=== PATIENT | female | born 1940 | race Caucasian/White ===

== ENCOUNTER 2017-01-05 07:46 | Inpatient (IN) ==
[2017-01-05] MEDS ORDERED: DUONEB (A & A) INH ONE (08:35)
[2017-01-05] MEDS ORDERED: SOLU-MEDROL IV ONE (08:35)
--- NOTE | 2017-01-05 08:56 | PROVIDER DOCUMENTATION ---
HPI-Respiratory General - General Chief Complaint: General Adult Stated Complaint: sob Time Seen by Provider: 01/05/17 07:49 Source: patient, family Allergies/Adverse Reactions: Patient Allergies Allergy/AdvReac Type Severity Reaction Status Date / Time Egg Derived Allergy ANAPHYLAXIS Verified 01/05/17 08:39 Home Medications: Home Medication List Medication Instructions Recorded Confirmed Last Taken Type Amlodipine Besylate [Norvasc] 2.5 mg PO DAILY 01/05/17 01/05/17 01/04/17 12:00 History Gabapentin [Gabapentin] 300 mg PO DAILY 01/05/17 01/05/17 01/04/17 12:00 History Oxycodone HCl/Acetaminophen 1 each PO TID PRN PRN 01/05/17 01/05/17 01/04/17 12: 00 History [Percocet 10-325 mg Tablet] - History of Present Illness-Resp Nature of Presenting Problem: 76 y/o Lung Cancer, Nose Cancer, HTN and DM that presents to the ED with a chief compliant of SOB. Pt states symptoms worsened overnight. Reports an elevation in heart rate. Pt reports requiring 2L of Oxygen that she utilizes just a night. No aggravating or alleviating factors. No other symptoms. Quality of Pain: reports: none Onset/Duration: reports: 24 hours ago Timing: reports: intermittent Exposure: reports: smoke exposure Cough Quality/Degree: reports: no cough Episode Frequency: chronic episodes Current Respiratory Medication Therapy: Initiated see nurses note Modifying Factors: improves with: nothing Associated Symptoms: reports: heart racing, shortness of breath Review of Systems - Adult - REVIEW OF SYSTEMS - ADULT Constitutional: reports: no symptoms reported Eyes: reports: no symptoms reported Ears, Nose, Mouth & Throat: reports: no symptoms reported Cardiovascular: reports: palpitations Respiratory: reports: shortness of breath Gastrointestinal: reports: no symptoms reported Genitourinary: reports: no symptoms reported Musculoskeletal: reports: no symptoms reported Integumentary: reports: no symptoms reported Neurological: reports: no symptoms reported Psychiatric: reports: no symptoms reported Endocrine: reports: no symptoms reported Hematologic/Lymphatic: reports: no symptoms reported Allergic/Immunologic: reports: no symptoms reported Past History - Adult - PAST MEDICAL HISTORY-ADULT Review of Records: reports: Old Records Reviewed, Nursing Assessment Review, Medications Reviewed - IMMUNIZATION STATUS Childhood Immunizations: See Nurse Assessment Flu Vaccine: See Nurse Assessment - SOCIAL HISTORY Smoking: cigar, less than 1 pack/day Substance Use: none/never Alcohol Use Frequency: never Living Situation: family Physical Exam-General - PHYSICAL EXAM-ADULT Initial Vital Signs Reviewed: Yes - CONSTITUTIONAL General Appearance: appears well, alert, no apparent distress. negative: lethargic, slow to respond, obtunded - EYES Eyes: PERRL/EOMI, pink conjunctivae. negative: sclera injected, scleral icterus - HEAD, EARS, NOSE, MOUTH & THROAT HENMT: normocephalic/atraumatic, moist mucous membranes, normal ENT inspection. negative: pharyngeal erythema, tonsillar exudate - NECK Neck: non-tender, full range of motion, supple. negative: C-spine tenderness - RESPIRATORY Respiratory: decreased breath sounds. negative: crackles, rales, rhonchi, wheezing - CARDIOVASCULAR Cardiovascular: no murmur, tachycardia. negative: irregularly irregular - GASTROINTESTINAL (ABDOMEN) Abdominal Exam: normal bowel sounds, non tender, soft. negative: distended, guarding, rigid, rebound, tenderness - LYMPHATIC Lymphatic: no adenopathy - MUSCULOSKELETAL Back Exam: normal inspection, no CVA tenderness, no vertebral tenderness. negative: swelling, vertebral tenderness Extremity: normal range of motion, non-tender, normal gait. negative: swelling , tenderness - SKIN Integumentary: normal color, normal turgor, warm/dry. 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 negative: focal weakness, motor weakness, sensory deficit - PSYCHIATRIC Psych/Mental Status: normal mood/affect, normal thought content, normal thought process, oriented x 3 Progress - PLAN OF CARE/RESULTS Progress/Plan/Lab Results: Vital Signs - 8 hr 01/05/17 08:00 01/05/17 08:29 01/05/17 09:26 Temperature 97.6 F Pulse Rate 111 H 105 H 102 H Respiratory Rate 20 28 H 18 Blood Pressure 142/81 135/75 O2 Sat by Pulse Oximetry 96 98 98 01/05/17 10:37 01/05/17 11:00 01/05/17 14:17 Temperature Pulse Rate 102 H 103 H 95 H Respiratory Rate 12 18 26 H Blood Pressure 150/84 153/82 160/75 O2 Sat by Pulse Oximetry 98 99 98 01/05/17 14:18 Temperature Pulse Rate 101 H Respiratory Rate 18 Blood Pressure 160/75 O2 Sat by Pulse Oximetry 98 Laboratory Results - last 24 hr 01/05/17 01/05/17 01/05/17 09:12 09:12 09:12 WBC 9.27 RBC 4.28 Hgb 11.8 L Hct 37.4 MCV 87.4 MCH 27.6 MCHC 31.6 L RDW Std Deviation 14.5 Plt Count 387 MPV 9.7 Neut % (Auto) 82.0 H Lymph % (Auto) 9.0 L Hinds % (Auto) 8.4 Eos % (Auto) 0.2 Baso % (Auto) 0.4 Neut # (Auto) 7.60 H Lymph # (Auto) 0.83 L Hinds # (Auto) 0.78 H Eos # (Auto) 0.02 Baso # (Auto) 0.04 PT 11.4 INR 1.08 Sodium 141 Potassium 3.4 L Chloride 99 Carbon Dioxide 32 Anion Gap 10 BUN 12 Creatinine 0.6 Estimated GFR/1.73 m2 > 60 BUN/Creatinine Ratio 20 Glucose 117 H Calculated Osmolality 282 Calcium 9.5 Total Bilirubin 0.23 AST 11 ALT 7 L Alkaline Phosphatase 94 Total Protein 7.8 Albumin 3.7 Globulin 4.1 Albumin/Globulin Ratio 0.9 Orders Category Date Time Status Nursing- MD Consult Request ROUTINE Care 01/05/17 13:31 Active MD [Physician/Provider Consults] Routine Cons 01/05/17 13:30 Ordered CTA [ANGIOGRAM/PULMONARY ARTERIES] [CT] Stat Exams 01/05/17 10:22 Draft BASIC METABOLIC PANEL [CHEM] Routine Lab 01/06/17 06:00 Ordered CBC WITH ELECTRONIC DIFF [HEME] Stat Lab 01/05/17 09:12 Completed CMP [COMPREHENSIVE METABOLIC PANEL] [CHEM] Stat Lab 01/05/17 09:12 Completed MAGNESIUM [CHEM] Routine Lab 01/06/17 06:00 Ordered PROTIME WITH INR [COAG] Stat Lab 01/05/17 09:12 Completed Albuterol 2.5MG/Ipratrop 0.5MG [Duoneb (A & A)] Med 01/05/17 08:35 Discontinued 3 ml INH NOW ONE Methylprednisolone Sod Succ [Solu-Medrol] Med 01/05/17 08:35 Discontinued 125 mg IV NOW ONE Nicotine Patch [Nicoderm Patch] Med 01/05/17 09:47 Discontinued 14 mg TD NOW ONE Aerosol Treatments Routine Oth 01/05/17 08:35 Completed Aerosol Treatments Stat Oth 01/05/17 08:35 Completed EKG [EKG] Routine Ther 01/06/17 06:00 Ordered EKG [EKG] Stat Ther 01/05/17 08:28 Draft Echo Spec/Color Dop W/O Contra Routine Ther 01/05/17 13:30 Ordered Transfer/Admit Order [TRANSFER] Routine Transfer 01/05/17 14:05 Ordered Result Diagrams: 01/05/17 09:12 01/05/17 09:12 - EKG 1 Time of EKG reading by physician:: 10:04 EKG Read and Signed by:: Melissa Fowler Jr EKG Interpretation (*Must complete 3 of following elements*): Abnormal Rate: 104 Rhythm: sinus tachycardia Sullivan: normal QRS: normal [place] Interval: normal ST Wave: normal - CONSULTS/PCP/HOSPITALIST Notification #1 *Consult/PCP/Hospitalist*: Dr. Cortes Time Discussed: 13:35 Consult Disposition: other (recommend admission. Will see in consult.) Departure - Departure Time of Disposition Decision: 14:38 DIAGNOSIS: Pericardial effusion without cardiac tamponade, Lymphadenopathy Lung cancer Qualifiers: Laterality: unspecified laterality Lung location: unspecified part of lung Qualified Code(s): C34.90 - Malignant neoplasm of unspecified part of unspecified bronchus or lung Disposition: ADMITTED INPATIENT 09 Certified Medical Emergency: Emergent Condition: Fair Referrals and Follow-Ups: None,PCP [Primary Care Provider] - - Critical Care Note This patient required my direct & personal management of CC.: No
[2017-01-05 09:34] LABS: MANUAL DIFF NEEDED? NO
[2017-01-05 09:41] LABS: BASO% 0.4 % (0.0-0.8); EOS# 0.02 X1000 (0.0-0.7); EOS% 0.2 % (0.0-10.0); HEMATOCRIT 37.4 % (37.0-47.0); HEMOGLOBIN 11.8 g/dL (12.0-16.0); LYMPH# 0.83 X1000 (1.2-3.4); MCH 27.6 PG (27-31); MCHC 31.6 g/dL (33-37); MCV 87.4 FL (81-99); MONO# 0.78 X1000 (0.11-0.59); MONO% 8.4 % (1.7-9.3); MPV 9.7 FL (7.4-10.4); PLT 387 X1000 (130-400); RBC 4.28 XMIL (4.2-5.4)
[2017-01-05 09:45] LABS: INR 1.08; PROTIME 11.4 Seconds (9.2-11.7)
[2017-01-05] MEDS ORDERED: NICODERM PATCH TD ONE (09:47)
[2017-01-05 10:02] LABS: AGAP 10; ALBUMIN 3.7 g/dL (3.5-5.0); ALKALINE PHOSPHATASE 94 U/L (32-104); BUN 12 mg/dL (8-22); CALCIUM 9.5 mg/dL (8.8-10.2); CHLORIDE 99 mmol/L (98-107); COSMO 282; GOT 11 U/L (10-30); GPT 7 U/L (10-36); POTASSIUM 3.4 mmol/L (3.5-5.1); SODIUM 141 mmol/L (136-145); TCO2 32 mmol/L (25-35); TOTAL BILIRUBIN 0.23 mg/dL (0.20-1.00); TOTAL PROTEIN 7.8 g/dL (6.3-8.3)
--- NOTE | 2017-01-05 10:14 | EKG Report ---
Test Performed on : 01/05/2017 10:04:17 AM Test Reason : CHEST PAIN Blood Pressure : / mmHG Vent. Rate : 104 BPM Atrial Rate : 104 BPM P-R Int : 138 ms QRS Dur : 074 ms QT Int : 332 ms P-R-T Axes : 046 022 060 degrees QTc Int : 436 ms Sinus tachycardia. Possible Left atrial enlargement Borderline ECG No previous ECGs available Unconfirmed Result
--- NOTE | 2017-01-05 12:34 | Diag Imaging Result Document ---
PROCEDURE NAME: ANGIOGRAM/PULMONARY ARTERIES - 01/05/2017 CT PULMONARY ANGIOGRAM WITH INTRAVENOUS CONTRAST: A CT dose reduction protocol was used. COMPARISON: Chest x-ray 12/10/2016. FINDINGS: Axial CT images of the chest were obtained after administering intravenous contrast. Coronal MIP images were generated. There is extensive mass-like filling of the mediastinum compatible with extensive, confluent lymphadenopathy. There are numerous bilateral pulmonary nodules, and a dominant mass in the right lung base. This measures about 3.3 x 3.5 cm. There is a very small right pleural effusion. There is advanced COPD. No pulmonary embolism visible. There is a moderate pericardial effusion. Heart size is, otherwise, normal. Upper abdominal images are grossly normal. Stable right chest port in good position. Advanced degenerative changes, and there is some scoliosis of the thoracic spine. No acute or suspicious bony lesions. IMPRESSION: Negative for pulmonary embolism. Multiple pulmonary masses and severe mediastinal lymphadenopathy. COPD. Moderate pericardial effusion. [facility]
--- NOTE | 2017-01-05 13:56 | CONSULTATION ---
DATE OF CONSULTATION: 01/05/2017 SUBJECTIVE: Ms. Martinez is a 76-year-old, lady with lung cancer and a nodule on the neck, as well as skin cancer on her nose. Has been undergoing treatment intermittently. Has not completed her chemotherapy for lung cancer. Came because of increasing shortness of breath. She denies chest pain and she noted palpitations as well. She has undergone radiation for her tumor in the neck, as well as on the nose. The exact pathology is not known. She has undergone radiation with a Dr. David and is followed by Oncology, Dr. Carolin Bacon here. She also has history of hypertension, neuropathy, chronic obstructive pulmonary disease, and is a chronic smoker. REVIEW OF SYSTEMS: A 14-point review of system was done.Gastrointestinal System: There is no history of nausea, vomiting, diarrhea. There is no history of melena. Central nervous system: No focal weakness to suggest a cerebrovascular accident or transient ischemic attack. Genitourinary System: There is no dysuria or hematuria. Respiratory system: As above. In addition, there is no hemoptysis. She has had cough with some expectoration. There are no chills. PAST MEDICAL HISTORY: 1. Lung cancer. 2. Skin cancer. 3. Has undergone chemotherapy partly and radiation to her lymph nodes in the neck, as well as radiation to her nose (per patient exact pathology not known). 4. Hypertension. 5. Chronic obstructive pulmonary disease. HOME MEDICATIONS: Include amlodipine 2.5 mg a day, gabapentin 300 mg daily, oxycodone, inhalers, Ventolin, Spiriva the exact dosage not known. ALLERGIES: She is allergic to egg derivatives. SOCIAL HISTORY: There is no history of alcohol abuse. She smokes a pack of cigarettes a day. PHYSICAL EXAMINATION: Vital Signs: Blood pressure was 150/82. Cardiovascular System: Normal jugular venous pressure. First and second heart sounds heard. There is no S3 gallop. Respiratory: Expiratory wheeze. Abdomen: Soft, nontender. There was no guarding or rigidity. Bowel sounds were heard. Central nervous system: Alert and was moving all 4 extremities. Extremities: Examination of extremities revealed no pedal edema. HEENT: Atraumatic, normocephalic. Pupils were equal and reacting to light. LABORATORY EXAMINATION: Sodium 141, potassium 3.4, BUN 12, creatinine 0.6. Hematology: WBC 9.27, hemoglobin 11.8, hematocrit 37, platelet count of 387,000. Coagulation INR 1.0. She had a pulmonary arteriogram in the emergency room, which was negative for pulmonary embolism. There were multiple pulmonary masses with severe mediastinal lymphadenopathy and pericardial effusion and chronic obstructive pulmonary disease. Electrocardiogram revealed normal sinus rhythm. There was no acute ST-T changes. There is left atrial enlargement. ASSESSMENT AND PLAN: Ms. Jackie Martinez is a 76-year-old, lady, who is admitted with increasing shortness of breath. She has lung cancer and has undergone Pott treatment (per patient) and has undergone radiation for her skin cancer on the nose, as well as on the lymph node. All these as per patient. Exact etiology and pathology not known. From a cardiac standpoint, pericardial effusion was noted. We will get an echocardiogram to assess for the extent of the pericardial effusion and to rule out any tamponade. She is otherwise comfortable at the time of my examination. We will consult Dr. Carolin Russell, as the patient has had multiple pulmonary masses, severe mediastinal lymphadenopathy, and is followed by her in the clinic. Thank you for the consult. cc: Eliseo Cortes MD
--- NOTE | 2017-01-05 14:53 | HISTORY AND PHYSICAL ---
HISTORY OF PRESENT ILLNESS: She has been a little more short of breath, but this morning it was quite a bit worse, increased dyspnea on exertion, but she was short of breath at rest. Had to sit up. Describes some orthopnea. Denies any chest pain. Denies any fever or chills. She has known lung cancer and had a nodule in her neck. I think that was when they discovered lung cancer 2 years ago as well as some skin cancer on her nose. She received some radiation treatments and apparently some chemotherapy as well, but as I stated, presented to the today with increasing shortness of breath. She was scheduled to see Dr. Peralta I think sometime this next week or two. She has undergone radiation to the neck and nose. Dr. aDvid is following for Oncology. Dr. Carolin Russell also following for Oncology. She has a of hypertension, I think, some peripheral neuropathy, COPD, a long-term smoker. She is down to smoke a couple cigarettes a day. PAST MEDICAL HISTORY: 1. Lung cancer. 2. Skin cancer. 3. Undergoing chemotherapy, partly with radiation on lymph nodes in neck, radiation or her nose. Unsure pathology of the skin cancer. 4. Hypertension. 5. Chronic COPD. MEDICATIONS: She is on gabapentin 300 mg a day, oxycodone, some Ventolin inhaler, Spiriva inhaler, I think, once a day. Amlodipine 2.5 mg daily. ALLERGIES: Allergic to egg derivatives. Otherwise, no known drug allergies. SOCIAL HISTORY: No history of alcohol abuse, but did smoke pretty heavily. She has cut down recently, but still smokes a couple of cigarettes a day. REVIEW OF SYSTEMS: General: She is not sure, her weight has been pretty stable. HEENT: Unremarkable. Respiratory: Increased work of breathing in the last week and quite a bit worse this morning. Cardiovascular: No chest pain or tachy palpitation. GI: Unremarkable. : Unremarkable. Musculoskeletal/Neurologic: She has peripheral neuropathy. PHYSICAL EXAMINATION: VITAL SIGNS: Today temperature 97.6 degrees, pulse 100, respirations 18, blood pressure 150/82. HEENT: Pupils are equal, round. LUNGS: Clear in all lung de guzman. CARDIOVASCULAR: Regular rate without murmur or S3. ABDOMEN: Soft. SKIN: Warm and dry. WEIGHT: 114 pounds. HEIGHT: 5 feet 3 inches. CVP less than 6 cm. LUNGS: Clear in all lung de guzman. CARDIOVASCULAR: Regular rhythm and rate without murmur or S3. ABDOMEN: Soft. SKIN: Is warm and dry. DIAGNOSTIC DATA: White count 9270, hematocrit 37, platelet count 387,000. Sodium 141, potassium 3.4, chloride 99, bicarb 32, BUN 12, creatinine 0.6, blood sugar 117. Albumin 3.7, PT was 11.4, INR 1.08. Pulmonary arteriogram: Negative for pulmonary embolism. Multiple pulmonary masses. Severe mediastinal lymphadenopathy. Moderate pericardial effusion. COPD. ASSESSMENT/PLAN: Chronic obstructive pulmonary disease, moderate pericardial effusion. I do not see any definite infiltrate. She does have lymphadenopathy. We will cover for respiratory organisms, bronchopneumonia. We will put her on Solu-Medrol at 80 mg IV q.12 hours. Blood pressure looks good. I do not see any sign of adrenal insufficiency. We will cover for this as well. Asked Dr. Peralta and Dr. Russell and Dr. Cortes to help. I do not see evidence of tamponade on clinical exam at this time. We will put her on Rocephin 1 g IV q.24 hours. We will give her some breathing treatments. We will continue her Spiriva 1 puff a day and will put her on a steroid inhaler as well. Advair 250/50 one puff twice a day. cc: Arnold Choi MD
[2017-01-05] MEDS ORDERED: PERCOCET-10 PO PRN (15:49)
[2017-01-05] MEDS ORDERED: TYLENOL PO PRN (15:49)
[2017-01-05] MEDS: DUONEB (A & A) INH SCH ×3 (16:31→22:38)
[2017-01-05] MEDS: ROCEPHIN 1 GM/NS 1 GM/50 ML IVPB IV SCH (18:06)
[2017-01-05] MEDS: PULMICORT INH SCH (19:13)
[2017-01-05] MEDS: MUCOMYST 20% INH SCH (19:13)
[2017-01-05 21:52] LABS: AGAP 14; BUN 14 mg/dL (8-22); CALCIUM 9.7 mg/dL (8.8-10.2); CHLORIDE 96 mmol/L (98-107); COSMO 282; MAGNESIUM 1.8 mg/dL (1.5-2.7); POTASSIUM 3.7 mmol/L (3.5-5.1); SODIUM 138 mmol/L (136-145); TCO2 28 mmol/L (25-35)
[2017-01-05] MEDS: CARDIZEM PO SCH (21:54)
[2017-01-05] MEDS ORDERED: CARDIZEM PO ONE (23:43)
[2017-01-06] MEDS: DUONEB (A & A) INH SCH ×6 (03:49→22:49)
[2017-01-06] MEDS: SOLU-MEDROL IV SCH ×3 (04:33→20:48)
[2017-01-06] MEDS: CARDIZEM PO SCH ×3 (06:00→18:14)
--- NOTE | 2017-01-06 06:26 | EKG Report ---
Test Performed on : 01/05/2017 8:12:56 PM Test Reason : irregular HR Blood Pressure : / mmHG Vent. Rate : 100 BPM Atrial Rate : 100 BPM P-R Int : 154 ms QRS Dur : 070 ms QT Int : 372 ms P-R-T Axes : 051 041 060 degrees QTc Int : 479 ms Atrial fibrillation. Otherwise normal ECG When compared with ECG of 05-JAN-2017 10:04, Atrial fibrillation. has replaced Normal sinus rhythm. Confirmed by Victor Manuel PEREZ, Delvis Schneider ([id number]) on 01/07/2017 7:14:11 AM
--- NOTE | 2017-01-06 06:27 | EKG Report ---
Test Performed on : 01/05/2017 8:45:38 PM Test Reason : Tachycardia Blood Pressure : / mmHG Vent. Rate : 177 BPM Atrial Rate : 178 BPM P-R Int : 000 ms QRS Dur : 070 ms QT Int : 258 ms P-R-T Axes : 000 049 234 degrees QTc Int : [address] \T\ T wave abnormality, consider inferolateral ischemia Abnormal ECG When compared with ECG of 05-JAN-2017 20:12, (Unconfirmed) premature supraventricular complexes. are no longer present Vent. rate has increased BY 77 BPM T wave inversion now evident in Inferior leads T wave inversion now evident in Lateral leads Confirmed by Victor Manuel PEREZ, Delvis Schneider ([id number]) on 01/07/2017 7:14:18 AM
[2017-01-06] MEDS: MUCOMYST 20% INH SCH ×2 (07:08→19:16)
[2017-01-06] MEDS: PULMICORT INH SCH ×2 (07:08→19:16)
[2017-01-06 07:20] LABS: MANUAL DIFF NEEDED? NO
[2017-01-06 07:27] LABS: BASO% 0.2 % (0.0-0.8); EOS# 0.01 X1000 (0.0-0.7); EOS% 0.1 % (0.0-10.0); HEMATOCRIT 35.8 % (37.0-47.0); HEMOGLOBIN 11.3 g/dL (12.0-16.0); IMM GRAN# 0.04 X1000 (0.0-0.04); IMM GRAN% 0.3 % (0.0-0.5); LYMPH# 1.49 X1000 (1.2-3.4); LYMPH% 10.1 % (20.5-51.1); MCH 27.2 PG (27-31); MCHC 31.6 g/dL (33-37); MCV 86.1 FL (81-99); MONO# 1.57 X1000 (0.11-0.59); MONO% 10.7 % (1.7-9.3); MPV 9.8 FL (7.4-10.4); NEUT% 78.6 % (42.2-75.2); PLT 385 X1000 (130-400); RBC 4.16 XMIL (4.2-5.4)
[2017-01-06 08:15] LABS: AGAP 11; ALBUMIN 3.5 g/dL (3.5-5.0); ALKALINE PHOSPHATASE 86 U/L (32-104); BUN 15 mg/dL (8-22); CALCIUM 9.6 mg/dL (8.8-10.2); CHLORIDE 98 mmol/L (98-107); COSMO 282; GOT 10 U/L (10-30); GPT 7 U/L (10-36); POTASSIUM 2.8 mmol/L (3.5-5.1); SODIUM 140 mmol/L (136-145); TCO2 31 mmol/L (25-35); TOTAL BILIRUBIN 0.16 mg/dL (0.20-1.00)
[2017-01-06] MEDS: NEURONTIN PO SCH (08:52)
[2017-01-06] MEDS: NORVASC PO SCH (08:52)
--- NOTE | 2017-01-06 10:23 | CONSULTATION ---
DATE OF CONSULTATION: 01/06/2017 REFERRING PHYSICIAN: Dr. Choi. CHIEF COMPLAINT: Shortness of breath. HISTORY OF PRESENT ILLNESS: This is a 76-year-old female with a past medical history of lung cancer, skin cancer, hypertension, and COPD who presented to the hospital with complaints of shortness of breath. She was admitted to the hospital for exacerbation of her COPD. She has undergone radiation to the neck and nose, and is followed by Dr. Russell. She is also a daily smoker. REVIEW OF SYSTEMS: A 10-point review of systems was conducted. Pertinent findings in the HPI, otherwise noncontributory. PAST MEDICAL HISTORY: As mentioned in the HPI, otherwise noncontributory. ALLERGIES: Egg derivatives, otherwise no known drug allergies. SOCIAL HISTORY: She smokes a couple of cigarettes a day. Denies use of alcohol or illicit drugs. FAMILY HISTORY: Noncontributory. ACTIVE MEDICATIONS: Tylenol, Mucomyst, DuoNeb, Norvasc, Pulmicort, Rocephin, Cardizem, Neurontin, Solu-Medrol, Percocet. PHYSICAL EXAMINATION: Vital Signs: Temperature 97.5 degrees, heart rate 87, respiratory rate 21, blood pressure 136/59, oxygen saturation 99%. General: Awake, alert, sitting up in bed, no acute distress noted. HEENT: Normocephalic, atraumatic. PERRL. Cardiovascular: Regular rate and rhythm. S1 and S2 present. Chest: Reduced entry. Abdomen: Soft. Bowel sounds present. Neurologic: No focal deficits. LAB INVESTIGATIONS: WBC 14.72, RBCs 4.16, hemoglobin 11.3, hematocrit 35.8, platelet count 385,000. Sodium 140, potassium 2.8, chloride 98, carbon dioxide 31, anion gap 11, BUN 15, creatinine 0.7, glucose 129. ASSESSMENT AND PLAN: This is a 76-year-old female with a past medical history as mentioned in the history of present illness who presented to the hospital with the complaint of shortness of breath. She was admitted for a chronic obstructive pulmonary disease exacerbation and has a moderate pericardial effusion in which cardiology is following and is scheduled for echocardiogram. Old lung cancer. Continue broad-spectrum antibiotics, intravenous steroids, inhaled bronchodilators. Further recommendations pending diagnostic studies. Thank you for the courtesy of this consult. Dictated by MOLLY Agrawal for Savannah Ontiveros MD cc: MOLLY Agrawal MD [facility]
[2017-01-06] MEDS: KLOR-CON PO SCH (11:53)
[2017-01-06] MEDS ORDERED: POTASSIUM CHLORIDE 40 MEQ in NS 250 ML IV ONE (13:00)
--- NOTE | 2017-01-06 13:35 | ECHO REPORT ---
ORDER DATE: 01/05/2017 INTERPRETING PHYSICIAN: Dr. Weiss CLINICAL INDICATIONS: A 76-year-old female with hypertension, dyspnea, pericardial effusion. M-MODE MEASUREMENTS: Right ventricle: 3.1 cm. Left ventricle end diastole: 3.6 cm. Left ventricle end systole: 2.7 cm. Posterior wall: 1.3 cm. Interventricular septum: 1.4 cm. Left atrium: 3.1 cm. Aortic root: 3.0 cm. SUMMARY OF 2-DIMENSIONAL IMAGIN. The left ventricular function is normal. The ejection fraction is 65% to 70%. This is a mild degree of concentric LVH. 2. The septum appears to be slightly more hypertrophic than the base. However, there is no definite indication of hypertrophic cardiomyopathy in this case. 3. The right ventricle is mildly enlarged. 4. There is a small pericardial effusion present. 5. The inferior vena cava is not dilated. 6. The aortic valve opens normally. There is no stenosis. Color flow mapping shows no regurgitation. 7. The pulmonic valve looks normal. Color flow mapping unremarkable. 8. The tricuspid valve is unremarkable. Pulmonary pressure cannot be accurately estimated in this case. 9. The mitral valve opens normally. There is calcification of the annulus. Pulsed wave Doppler of mitral inflow shows reversal of the E and the A wave. The tissue Doppler of septal and lateral mitral annulus averages 5 cm. There is impaired left ventricular relaxation. 10.There is no evidence of masses nor thrombus. CONCLUSIONS: In summary, this study shows: 1. Hyperdynamic left ventricle with a mild degree of concentric LVH. 2. Impaired left ventricular relaxation. 3. A small pericardial effusion. 4. Calcification of the mitral annulus with a very mild degree of mitral regurgitation. Clinical correlation recommended. cc: MD Kathy Mcgrath PA
--- NOTE | 2017-01-06 17:37 | PROGRESS NOTE ---
DATE: 01/06/2017 ADDENDUM: The echocardiogram was read by Dr. Weiss. He has a hyperdynamic left ventricle, mild degree of concentric LVH, impaired left ventricular relaxation, small pericardial effusion, calcification of mitral annulus, very mild degree of mitral regurgitation. cc: Arnold Choi MD
--- NOTE | 2017-01-06 17:51 | PROGRESS NOTE ---
DATE: 01/06/2017 SUBJECTIVE: Patient was admitted yesterday. Had been a little more short of breath the morning of admission and a little more dyspnea on exertion. She had to sit up. Describes some orthopnea. Denied any chest pain. She has known lung cancer and had a nodule in her neck. This was discovered when they discovered the lung cancer 2 years ago, as well as local skin cancer to her nose which she is getting radiation treatment for. The patient was admitted with COPD, moderate pericardial effusion, exacerbation of COPD. Did not see any definite infiltrates. She had some lymphadenopathy. Treating her for bronchial pneumonia. Put her on Solu-Medrol and antibiotics and breathing treatments. She does states she is breathing better. Feels better. OBJECTIVE: Vital Signs: Temperature 97.9, pulse 98, respirations 21, blood pressure 135/75. HEENT: Pupils are equal and round. Lungs: Clear to auscultation in all lung de guzman. Cardiovascular: Exam regular rhythm and rate without murmur or S3. Abdomen: Soft. Skin is warm and dry. Good urine output. LAB: White count 14,720, hematocrit 35, platelet count 385,000. Sodium 140, potassium 2.8, chloride 98, BUN 15, creatinine 0.7, magnesium was 1.9. MEDICATIONS: Review of orders: Patient on nicotine patch. Ceftriaxone 1 g daily. She was given 20 mEq of potassium p.o. daily. I will probably give her another 40 p.o. now. Oxycodone 10 mg t.i.d. p.r.n., methylprednisone 80 mg IV q.12, Neurontin 300 mg daily. Diltiazem CD 180 mg daily. Pulmicort 0.5 mg b.i.d., Norvasc 0.25 mg daily. PLAN: Blood pressures look good. Give her a little extra potassium today. Check a chest x-ray again in the morning. Dr. Cortes has seen. Understands she has lung cancer and has undergone POTT treatment per patient, and has undergone radiation for skin cancer of her nose, as well as lymph node. Cardiac standpoint pericardial effusion was noted. We are going to get an echocardiogram. Did not see clinical evidence of tamponade. Dr. Russell is on the case. The patient has multiple pulmonary masses, severe mediastinal lymphadenopathy. Pulmonary arteriogram done yesterday negative for pulmonary embolism. Multiple pulmonary masses, severe mediastinal lymphadenopathy, COPD and moderate pericardial effusion. I have reviewed her orders and no changes. cc: Arnold Choi MD
[2017-01-06] MEDS: ROCEPHIN 1 GM/NS 1 GM/50 ML IVPB IV SCH (20:48)
[2017-01-06] MEDS ORDERED: NS 250 ML ONE (20:53)
[2017-01-07] MEDS: DUONEB (A & A) INH SCH ×3 (03:51→11:13)
--- NOTE | 2017-01-07 06:51 | EKG Report ---
Test Performed on : 01/07/2017 06:25:17 AM Test Reason : tachycardia Blood Pressure : / mmHG Vent. Rate : 081 BPM Atrial Rate : 081 BPM P-R Int : 126 ms QRS Dur : 074 ms QT Int : 372 ms P-R-T Axes : -05 026 063 degrees QTc Int : 432 ms Normal sinus rhythm. Normal ECG When compared with ECG of 05-JAN-2017 20:45, (Unconfirmed) Vent. rate has decreased BY [address] elevation now present in Inferior leads ST no longer depressed in Anterior leads T wave inversion no longer evident in Inferior leads T wave inversion no longer evident in Lateral leads Confirmed by Victor Manuel PEREZ, Delvis Schneider ([id number]) on 01/07/2017 7:16:40 AM
[2017-01-07 07:40] LABS: EOS# 0.06 X1000 (0.0-0.7); EOS% 0.3 % (0.0-10.0); HEMATOCRIT 37.6 % (37.0-47.0); HEMOGLOBIN 11.8 g/dL (12.0-16.0); IMM GRAN# 0.03 X1000 (0.0-0.04); IMM GRAN% 0.1 % (0.0-0.5); LYMPH# 0.59 X1000 (1.2-3.4); LYMPH% 2.9 % (20.5-51.1); MANUAL DIFF NEEDED? YES; MCH 27.2 PG (27-31); MCHC 31.4 g/dL (33-37); MCV 86.6 FL (81-99); MONO# 0.58 X1000 (0.11-0.59); MONO% 2.9 % (1.7-9.3); NEUT% 93.8 % (42.2-75.2); PLT 400 X1000 (130-400); RBC 4.34 XMIL (4.2-5.4)
[2017-01-07 07:41] VITALS: BP 134/66
[2017-01-07] MEDS: PULMICORT INH SCH (07:50)
[2017-01-07] MEDS: MUCOMYST 20% INH SCH (07:50)
[2017-01-07 08:03] LABS: AGAP 10; BUN 18 mg/dL (8-22); CALCIUM 9.8 mg/dL (8.8-10.2); CHLORIDE 99 mmol/L (98-107); COSMO 287; MAGNESIUM 1.9 mg/dL (1.5-2.7); POTASSIUM 4.4 mmol/L (3.5-5.1); SODIUM 141 mmol/L (136-145); TCO2 32 mmol/L (25-35)
[2017-01-07 08:27] LABS: BANDS 4 % (0-1); LYMPHS 2 % (21-51)
[2017-01-07] MEDS: KLOR-CON PO SCH (08:29)
[2017-01-07] MEDS: NORVASC PO SCH (08:29)
[2017-01-07] MEDS: SOLU-MEDROL IV SCH (08:30)
[2017-01-07] MEDS: NEURONTIN PO SCH (08:30)
[2017-01-07 08:47] LABS: SED RATE 48 mm/hr (0-20)
[2017-01-07] MEDS ORDERED: CARDIZEM CD PO SCH (09:00)
--- NOTE | 2017-01-07 15:29 | CONSULTATION ---
DATE OF CONSULTATION: 01/06/2017 REQUESTING PROVIDER: Hospitalist service. REASON FOR CONSULTATION: Patient known to us for head and neck cancer. HISTORY OF PRESENT ILLNESS: Ms. Martinez is a 76-year-old female, who is known to us as we have previously treated her for metastatic head and neck cancer who has now presented with some increased shortness of breath. She had a workup which revealed her to have lung masses as well as a pericardial effusion. The patient has previously received Erbitux for metastatic head and neck cancer. She opted to discontinue treatment after 6 cycles. This was due to toxicities. The patient has expressed that she does not want any further chemotherapy. She did finish up with palliative radiation and finished that on 05/05/2016. Most recently, the patient has began radiation to her nose for skin cancer. PAST MEDICAL HISTORY: 1. Metastatic head and neck cancer. 2. Skin cancer. 3. Hypertension. 4. Chronic COPD. PAST SURGICAL HISTORY: None. FAMILY HISTORY: Positive for her mother who from Alzheimer's. Her father from a car accident. She has a brother that of colon cancer. There is also a family history for diabetes mellitus. SOCIAL HISTORY: The patient is single. She lives with her daughter. She has 8 children. She is a current every day smoker. She smokes about 1 pack of cigarettes per day for the past 60 years. She denies any previous alcohol use. REVIEW OF SYSTEMS: As per the HPI. All else negative and noncontributory. PHYSICAL EXAMINATION: Vital Signs: Temperature 97.5 degrees, heart rate is 87, respirations 21, blood pressure 136/59, O2 saturation is 99% on 2 L nasal cannula. General: This is a thin, female, sitting in the hospital bed eating lunch. She is in no acute distress. Her daughter is at bedside. Head: Normocephalic, atraumatic. Eyes: Pupils equal, round, reactive. Ears, nose, throat, neck, and mouth: Oral mucosa appears to be normal. Trachea is midline. Gross auditory acuity is intact. Cardiovascular: S1-S2 heard. No murmurs, gallops, or rubs. Regular rate and rhythm. Respiratory: The patient has scattered coarse breath sounds. She does have some decreased breath sounds right lower lobe. Normal respiratory effort. Gastrointestinal: Abdomen is soft and nondistended. Positive bowel sounds. Musculoskeletal: No edema. No abnormalities. Extremities: No edema. Neurologic: The patient is alert and oriented at this time. No focal motor deficits noted. LABORATORY AND DIAGNOSTIC STUDIES: White blood cells 14.72, hemoglobin 11.3, hematocrit 35.8, platelets 385,000. Sodium 140, potassium 2.8, chloride 98, CO2 of 21. BUN 15, creatinine 0.7, glucose is 129. CT angiogram shows the patient to be negative for pulmonary embolism. She has multiple pulmonary masses and severe mediastinal lymphadenopathy. COPD. Moderate pericardial effusion. ASSESSMENT AND PLAN: 1. Metastatic head and neck cancer, untreated. Discussed again with the patient that if she does not want chemotherapy as previously, recommend that she proceed with either palliative care or hospice at home. We discussed what palliative care and hospice services are and how they can help the patient and her family. The patient did agree for a palliative care consult. The patient also noted that she did not want any further chemotherapy treatments at this time. 2. Chronic obstructive pulmonary disease exacerbation. Continue current management. Appears to be better. 3. Pericardial effusion. This is as per the cardiology team. It appears that she will not need any surgical or invasive intervention given she has no evidence of tamponade. 4. Lung masses, likely related to #1. The patient does not want any chemotherapy treatments. 5. Shortness of breath, currently improved. We want to thank you for consulting us on Ms. Martinez. We will continue to follow along just to plan per hospital course. Dictated by JAMEEL Blevins for Jesús Martinez MD cc: Jesús Martinez MD
--- NOTE | 2017-01-22 15:30 | DISCHARGE SUMMARY ---
ADMISSION DATE: 01/05/2017 DISCHARGE DATE: 01/07/2017 FINAL DISCHARGE DIAGNOSES: 1. Acute chronic obstructive pulmonary disease exacerbation. 2. Pneumonia. 3. Moderate pericardial effusion. 4. Hypertension. 5. Tobacco dependence. CONSULTATIONS REQUESTED DURING THIS HOSPITAL STAY: 1. Pulmonary consultation with Dr. Ontiveros. 2. Cardiology consultation with Dr. Cortes. IMAGING PERFORMED DURING THIS HOSPITAL STAY: 1. Pulmonary arteriogram, which was noted to be negative for pulmonary embolism. Multiple pulmonary masses and severe mediastinal lymphadenopathy. 2. Two-dimensional echocardiogram, which revealed a small pericardial effusion, impaired left ventricular relaxation. Mild LVH. HOSPITAL COURSE: Ms. Martinez is a 76-year-old female with a history of COPD, tobacco dependence, and hypertension, who presented to the ER with a chief complaint of shortness of breath. In the ER, a pulmonary arteriogram was done that was noted to be negative for pulmonary embolism; however, there were multiple pulmonary masses and severe mediastinal lymphadenopathy that was seen. Also, there was indication of a possible moderate pericardial effusion. The patient was admitted to the Hospitalist Service, and Pulmonary as well as Cardiology were consulted. The patient was treated with IV antibiotics and IV steroids for COPD exacerbation. The patient also had a 2-dimensional echocardiogram that revealed a mild pericardial effusion. The patient was also seen by Dr. Russell because the patient does have known metastatic head and neck cancer. The patient had decided that she did not want treatment for the head and neck cancer, and it was recommended that the patient consider palliative care or hospice. The patient was ultimately cleared for discharge home on 01/07/2017 with home health services. DISCHARGE MEDICATIONS: 1. Cardizem CD 180 mg p.o. daily. 2. Doxycycline 100 mg p.o. every 12 hours. 3. DuoNeb 3 mL inhaled every 4 hours p.r.n. for shortness of breath. 4. Prednisone taper to use as directed. 5. Percocet 10/325 one tablet orally 3 times a day p.r.n. 6. Gabapentin 300 mg p.o. daily. 7. Norvasc 2.5 mg p.o. daily. DISCHARGE DIET: Low-sodium diet. ACTIVITY: As tolerated. FOLLOWUP INSTRUCTIONS: The patient will need to follow up with Dr. Russell as scheduled by her clinic. cc: Valerie Frazier MD
== END 2017-01-07 15:34 | disposition home health service (06) ==
LOC: ED 07:46 → SUATTDRO 15:13 → 3N 15:13
PROVIDERS: ATTEND Internal Medicine

== ENCOUNTER 2017-02-02 07:52 | Inpatient (IN) ==
[2017-02-02] MEDS ORDERED: DUONEB (A & A) INH ONE (09:31)
--- NOTE | 2017-02-02 10:05 | Diag Imaging Result Doc PS360 ---
EXAM: CHEST-2 VIEWS HISTORY: dyspnea TECHNIQUE: AP and lateral COMMENT: There are numerous nodules throughout both lungs. Some of these appear to be larger than on the previous study of 12/10/2016. This is particularly evident on the lateral view on some of the posterior nodules in the lower lobes. The pleural effusion on the right is somewhat smaller than it was previously. IMPRESSION: Worsening pulmonary metastatic disease. Electronically signed by Aleksandr Zamora 02/02/2017 10:02 AM
[2017-02-02 12:44] LABS: MANUAL DIFF NEEDED? NO
[2017-02-02 12:45] LABS: BASO% 0.4 % (0.0-0.8); EOS# 0.04 X1000 (0.0-0.7); EOS% 0.5 % (0.0-10.0); HEMATOCRIT 36.8 % (37.0-47.0); HEMOGLOBIN 11.8 g/dL (12.0-16.0); LYMPH# 0.95 X1000 (1.2-3.4); LYMPH% 11.6 % (20.5-51.1); MCH 27.3 PG (27-31); MCHC 32.1 g/dL (33-37); MCV 85.2 FL (81-99); MONO% 15.9 % (1.7-9.3); MPV 8.6 FL (7.4-10.4); NEUT% 71.6 % (42.2-75.2); PLT 404 X1000 (130-400); RBC 4.32 XMIL (4.2-5.4)
[2017-02-02 13:00] LABS: AGAP 12; ALBUMIN 3.3 g/dL (3.5-5.0); ALKALINE PHOSPHATASE 95 U/L (32-104); BUN 9 mg/dL (8-22); CALCIUM 9.3 mg/dL (8.8-10.2); CHLORIDE 95 mmol/L (98-107); COSMO 271; GOT 11 U/L (10-30); GPT 7 U/L (10-36); POTASSIUM 3.3 mmol/L (3.5-5.1); SODIUM 135 mmol/L (136-145); TCO2 28 mmol/L (25-35); TOTAL BILIRUBIN 0.35 mg/dL (0.20-1.00); TOTAL PROTEIN 6.4 g/dL (6.3-8.3)
[2017-02-02 13:14] LABS: ALLEN TEST YES; BE 7.5 mmoll (-3.0-3.0); BLOOD TYPE ARTERIAL; DRAW SITE R RADIAL; METHB 0.6 % (0.0-1.5); O2(CT) 15.3 mL/dL (15.0-23.0); PCO2(98.6) 44 mmHg (35-45); PO2(98.6) 85 mmHg (60-100); SAMPLE BLOOD; SAO2 98.8 % (95.0-100.0); THB 11.2 g/dL (11.5-17.4); pH(98.6) 7.47 (7.35-7.45)
[2017-02-02 13:16] LABS: MODALITY CANNULA
--- NOTE | 2017-02-02 14:33 | Diag Imaging Result Doc PS360 ---
EXAM: ANGIOGRAM/PULMONARY ARTERIES HISTORY: DYSPNEA, EVALUATION FOR PE, H/O LUNG CA TECHNIQUE: CT of the chest with intravenous contrast and 2 mm slices with some dose reduction. COMMENT: There is no evidence of pulmonary emboli. There is severe thoracic aortic atherosclerotic change. No aneurysm or dissection is present. There are again multiple metastatic lesions throughout both lungs. Extensive matted adenopathy is present in the corine and mediastinum. This is slightly worse than on 01/05/2017. There is severe COPD. There is a lesion in posterior left upper lobe on image 78 which has increased in size from 19 to over 22 mm in AP dimension. There is a lesion in the lateral costophrenic sulcus of the right lower lobe on image 140 which has increased in AP dimension from less than 15 mm to almost 19 mm. A pleural effusion on the right has actually improved and there has been some improvement in atelectasis in the posterior costophrenic sulcus on the right. There is a stable pericardial effusion. IMPRESSION: Worsening metastatic disease. No evidence of pulmonary emboli. Electronically signed by Aleksandr Zamora 02/02/2017 2:31 PM
--- NOTE | 2017-02-02 14:42 | HISTORY AND PHYSICAL ---
HISTORY OF PRESENT ILLNESS: This is a 76-year-old white female who presented with shortness of breath. I had put her in earlier in December, 01/05/2017, with similar symptoms. She is followed by Dr. Carolin Russell. She has underlying lung cancer and is undergoing therapy, I believe, now with Dr. Russell. She has had radiation therapy I think on her nose, and I think on a lesion on her neck. She has been losing weight and appetite been poor, but just progressively has become more short of breath. A CT of the chest reveals what appears to be increased spread of the lung cancer. She does feel better on increased FiO2, and she denies fever or chills, denies any specific pain. She is getting weaker. PAST MEDICAL HISTORY: 1. Lung cancer. 2. Skin cancer. 3. Underwent chemotherapy, some radiation for the lymph nodes in her neck, and radiation on her nose for skin cancer, and undergoing chemotherapy I think now under Dr. Carolin Russell's direction. 4. Hypertension. 5. Chronic COPD, O2-dependent. MEDICATIONS: Will review. ALLERGIES: Allergic to egg derivatives. Otherwise, no known drug allergies. SOCIAL HISTORY: No history of alcohol abuse, but did smoke pretty heavy for many years, cut down recently. FAMILY HISTORY: Noncontributory. REVIEW OF SYSTEMS: In general, no weight gain. She has lost weight in the last 2 months and she has lost 4 or 5 pounds. She is not eating well.HEENT: Unremarkable. Respiratory: Increased work of breathing, increased dyspnea on exertion and increased dyspnea with rest, as well. No pedal edema. Cardiovascular: No chest pain or tachy palpitation. Gastrointestinal/Genitourinary: No gross hematuria or dysuria. PHYSICAL EXAMINATION: VITAL SIGNS: Today, temperature 97.8 degrees, pulse 98, respirations 24, and blood pressure 150/98. Weight is 114 pounds, height 5 feet 3 inches. HEENT: Pupils are equal and round. NECK: CVP less than 6 cm. LUNGS: Scattered rhonchi throughout the lungs. She is on nasal cannula. CARDIOVASCULAR: Regular rhythm and rate, without murmur or S3. ABDOMEN: Soft. SKIN: Warm and dry. LABORATORY: White count 8170, hematocrit 36, platelet count 404,000. Sodium 135, potassium 3.3, chloride 95, bicarbonate 28, BUN 9, creatinine 0.5. Liver functions unremarkable. AST was 11. ALT was 7. Blood gases showed pH was 7.47, pCO2 was 44, PO2 was 85, with 96% saturation. That was on 2L or 28% FiO2. IMAGING: Chest x-ray: Worsening pulmonary metastatic disease. There are numerous nodules throughout both lungs. Some these appear to be larger than on the previous study from 12/10/2016. This is particularly evident on lateral view, some of the posterior nodules in the lower lobes. Pleural effusion on the right is somewhat smaller than it was previously. ASSESSMENT AND PLAN: 1. Chronic obstructive pulmonary disease with hypoxia and she has metastatic lung cancer and tumor load appears to be increasing on chest x-ray. I do not see signs of infection. We will give her an antibiotic to cover for potential pneumonia and ask Dr. Carolin Russell for plan of treatment. 2. Severe exacerbation of chronic obstructive pulmonary disease. 3. Poor appetite. She is losing weight. 4. Hypertension. Will watch her blood pressure. 5. History of skin cancer. Received radiation treatment. 6. I also think that she has a history of atrial fibrillation in the past. Aware. REVIEW OF HER HOME MEDICATIONS: She is taking DuoNeb q.4 hours p.r.n. She is on Norvasc 2.5 mg a day. Diltiazem CD 180 mg daily. Gabapentin 300 mg a day. Oxycodone 10/325 t.i.d. p.r.n. cc: Arnold Choi MD
[2017-02-02] MEDS ORDERED: NICODERM PATCH TD ONE (14:47)
[2017-02-02] MEDS ORDERED: PERCOCET-10 PO PRN (15:30)
[2017-02-02] MEDS ORDERED: TYLENOL PO PRN (15:30)
[2017-02-02] MEDS ORDERED: ZOFRAN IV PRN (15:30)
[2017-02-02] MEDS: SOLU-MEDROL IV SCH (16:14)
[2017-02-02] MEDS: ROCEPHIN 1 GM/NS 1 GM/50 ML IVPB IV SCH (16:14)
[2017-02-02] MEDS: NS 1,000 ML IV SCH (16:14)
[2017-02-02] MEDS: ATROVENT NEB INH SCH ×3 (16:33→23:21)
[2017-02-02] MEDS: XOPENEX NEB INH SCH ×3 (16:33→23:21)
[2017-02-02] MEDS: SODIUM CHLORIDE 0.9% INJ SCH (16:59)
[2017-02-02] MEDS: PROTONIX IV SCH (16:59)
[2017-02-02] MEDS: PULMICORT INH SCH (20:07)
[2017-02-02] MEDS: PERICOLACE PO SCH (21:15)
[2017-02-03] MEDS: SOLU-MEDROL IV SCH ×4 (03:17→23:41)
[2017-02-03] MEDS: XOPENEX NEB INH SCH ×6 (03:24→23:03)
[2017-02-03] MEDS: ATROVENT NEB INH SCH ×6 (03:24→23:02)
[2017-02-03] MEDS: NS 1,000 ML IV SCH ×2 (03:56→15:45)
[2017-02-03] MEDS: PROTONIX IV SCH ×2 (03:56→15:46)
[2017-02-03] MEDS: SODIUM CHLORIDE 0.9% INJ SCH ×2 (03:56→15:46)
[2017-02-03 06:42] LABS: MANUAL DIFF NEEDED? NO
[2017-02-03 06:51] LABS: HEMATOCRIT 35.4 % (37.0-47.0); HEMOGLOBIN 11.4 g/dL (12.0-16.0); LYMPH# 0.52 X1000 (1.2-3.4); LYMPH% 10.3 % (20.5-51.1); MCH 27.5 PG (27-31); MCHC 32.2 g/dL (33-37); MCV 85.3 FL (81-99); MONO# 0.26 X1000 (0.11-0.59); MONO% 5.1 % (1.7-9.3); MPV 8.9 FL (7.4-10.4); NEUT% 84.6 % (42.2-75.2); PLT 397 X1000 (130-400); RBC 4.15 XMIL (4.2-5.4)
[2017-02-03] MEDS ORDERED: PROTONIX PO SCH (07:00)
[2017-02-03 07:10] LABS: AGAP 15; ALKALINE PHOSPHATASE 90 U/L (32-104); BUN 7 mg/dL (8-22); CALCIUM 8.8 mg/dL (8.8-10.2); CHLORIDE 99 mmol/L (98-107); COSMO 278; GOT 10 U/L (10-30); GPT 7 U/L (10-36); IRON SATURATION 18 %; POTASSIUM 3.7 mmol/L (3.5-5.1); PREALBUMIN 8.7 mg/dL (20-40); SODIUM 139 mmol/L (136-145); TCO2 25 mmol/L (25-35); TIBC 159 ug/dL; TOTAL BILIRUBIN 0.26 mg/dL (0.20-1.00); TOTAL IRON 28 ug/dL (49-151); TOTAL PROTEIN 6.3 g/dL (6.3-8.3); UNBOUND IRON 131 ug/dL (112-346)
[2017-02-03 07:28] LABS: FREE T4 1.27 ng/dL (0.93-1.70)
[2017-02-03] MEDS: NEURONTIN PO SCH (08:02)
[2017-02-03] MEDS: NORVASC PO SCH (08:02)
[2017-02-03] MEDS: CARDIZEM CD PO SCH (08:02)
[2017-02-03] MEDS: PERICOLACE PO SCH ×2 (08:02→20:46)
[2017-02-03] MEDS: LOVENOX SUBQ SCH (08:02)
[2017-02-03] MEDS: PULMICORT INH SCH ×2 (08:08→19:28)
--- NOTE | 2017-02-03 09:00 | Diag Imaging Result Doc PS360 ---
BA SWALLOW-ESOPHAGUS - 02/03/2017 INDICATION: dysphagia TECHNIQUE: Single contrast esophagram. Total fluoroscopy time was 41 seconds. 62 images were obtained. COMPARISON: None FINDINGS: There is a normal swallowing reflex. No aspiration or penetration. The esophagus was slow to dilate, and in the mid esophagus there was very persistent, pronounced spasm with tertiary wave formation. This also affect of the distal esophagus. There is overall no significant delay in clearance of liquid contents. The gastroesophageal junction is also fairly spastic, and did not relax very widely. IMPRESSION: Advanced presbyesophagus, with some moderate spasm of the mid-distal esophagus and gastroesophageal junction. No significant delay in clearance of the esophagus. Electronically signed by Pasha Turner 02/03/2017 8:58 AM
--- NOTE | 2017-02-03 12:07 | CONSULTATION ---
DATE OF CONSULTATION: 02/03/2017 ATTENDING PHYSICIAN: Dr. Arnold Choi. PRIMARY ONCOLOGIST: Dr. Carolin Russell. REASON FOR CONSULTATION: Dysphagia, weight loss, COPD, lung cancer. Ms. Martinez is a 76-year-old female, who was admitted on 02/02/2017 with shortness of breath. She has history of underlying head and neck cancer. She is currently undergoing treatment by Dr. Carolin Russell. She also has a history of chronic COPD and is oxygen dependent requiring oxygen all the time. She has cut down smoking and she smokes about 2-3 cigarettes a day but she has a 5 decade history of smoking in the past. She was also noted to have losing weight and poor appetite and was having some trouble swallowing. Every time she took solid food she has to drink lots of fluids to push it down. In that event we did a barium swallow evaluation which showed evidence of spasms in the lower esophagus and GE junction, and she also had a CT scan done which showed evidence of worsening pulmonary metastatic disease with numerous nodules throughout the lungs. She denies any vomiting, vomiting blood or passing blood in the stools. She does complain of change in bowel habits and diarrhea and constipation. She has had a previous EGD with dilation in the past. PAST MEDICAL HISTORY: 1. Lung cancer. 2. Skin cancer. 3. Head and neck cancer status post chemotherapy and radiation. 4. Hypertension. 5. COPD. 6. Heavy tobacco abuse. 7. Reflux disease. 8. Previous history of dysphagia. ALLERGIES: To egg derivatives. SOCIAL HISTORY: No history of alcohol abuse, heavy smoker for many decades and recently cut down to 2-3 cigarettes a day. No history of illicit drug abuse. Family is very supportive. Son at bedside. FAMILY HISTORY: Noncontributory. MEDICATIONS IN THE HOSPITAL INCLUDE: Tylenol, amlodipine, budesonide, diltiazem , Lovenox, gabapentin, ipratropium, levalbuterol, methylprednisolone 40 mg IV q.8, IV normal saline 80 mL/h, Zofran, oxycodone/acetaminophen, Protonix b.i.d., Emily-colace 2 tablets p.o. b.i.d., albuterol/ipratropium, and NicoDerm patch. She is currently on GI soft diet. REVIEW OF SYSTEMS: Denies any current fevers, rigors, chills. Does complain of shortness of breath, and chronic COPD and requiring home oxygen. Denies any chest pain. Denies any nausea, vomiting, vomiting blood or passing blood in the stools or black stools and does have history of arthritis. Denies any neurologic complaints. PHYSICAL EXAM: Vitals: Of 97.4, pulse rate of 87, respiratory rate 18, blood pressure 150/76, saturating 98% on 2 L cannula, body weight of 114 pounds. BMI 20.2 kg. General Appearance: Thinly built, lying in bed, in the sitting position. Her son is present at bedside. HEENT: Mild pallor. No icterus. Pupils equal, react to light. Nasal cannula in place. Neck: Supple. Chest: Decreased at the bases. Cardiovascular: Mild tachycardic at times. Abdomen: Soft, nontender. Bowel sounds are present. No guarding. Extremities: No cyanosis, clubbing. Neurologic: She is alert, awake, oriented. LABS: Her hemoglobin and hematocrit is 11.4 and 35.4, white count of 5.07, platelet count of 397,000. MCV of 85.3. ABG showing pH of 7.47, PO2 85, PCO2 44 and 28% FiO2. Sodium 139, potassium 3.7, chloride 99, bicarb 25, anion gap 15. BUN of 7, creatinine 0.5, glucose of 145, calcium is 8.8, iron 28 per surgery team with a ferritin of 247, AST 10, ALT 7, alkaline phos 90, total protein 6.3, albumin of 3, pre-albumin of 8.7. B12 531, 413.8. Barium swallow study done today showed advanced presbyesophagus with some moderate spasm more mid distal esophagus and gastroesophageal junction. No significant delay in appearance of the esophagus. Pulmonary arteriogram worsening metastatic disease. No evidence of pulmonary emboli, severe COPD. IMPRESSION AND PLAN: 1. Loss of weight and low appetite and spasms in the distal esophagus. 2. Reflux disease. 3. COPD. 4. Lung metastatic disease seen on imaging being treated by Dr. Carolin Russell. 5. Mild anemia. RECOMMENDATIONS: We discussed the results of the barium swallow with the patient and family at bedside. We will continue patient on Protonix b.i.d. Will keep the patient on GI soft diet and aspiration, chew the food very well and drink plenty of fluids with meals. The patient has had previous EGD dilations in the past. We will schedule for EGD with possible dilation tomorrow with Dr. Rose. The risks, benefits, indications, alternatives of the procedure were discussed with the patient and family at bedside. Her risk of proceeding with any kind of endoscopic intervention is slightly higher because of underlying comorbid medical conditions. We may have to do stool studies if the patient continues to have diarrhea. Further she will continue on gastroesophageal reflux life changes. Avoid excessive tea, coffee, soda, tomatoes, onions, spicy foods. The patient also counseled to quit smoking completely. On discharge patient will need some kind of PPIs for next 8-12 weeks. Further recommendations as per Dr. Carolin Russell. cc: Terence Moreno MD [facility] CENTERLina
--- NOTE | 2017-02-03 13:24 | PROGRESS NOTE ---
DATE: 02/03/2017 SUBJECTIVE: Ms. Martinez is feeling much better and breathing better. She is eating. She is still having trouble with food getting lodged, so I think she is scheduled for an EGD and possible esophageal dilatation. OBJECTIVE: Vital signs: Temperature 97.4 degrees, pulse 87, respirations 18. Lungs: Clear in all lung de guzman. Cardiovascular: Regular rhythm and rate, without murmur or S3. Abdomen: Soft. Skin: Warm and dry. URINE OUTPUT: Good urine output. LABORATORY: Reviewed lab from yesterday. Hemoglobin and hematocrit are stable, white count unremarkable. ASSESSMENT AND PLAN: 1. History of lung cancer that appears to be progressing. We will talk with Dr. Russell. 2. Low appetite and trouble swallowing, as well. It seems like she has spasm in the distal esophagus. I think the plan is to do an EGD and dilatation, and I think that is supposed to happen today. 3. Chronic obstructive pulmonary disease exacerbation. 4. Lung cancer with metastatic disease. 5. Anemia. Blood counts are stable. She had a barium swallow done this morning. Advanced presbyesophagus and some moderate spasm in the mid distal esophagus and gastroesophageal junction. No significant delay in the clearance of the esophagus. Reviewed orders. I do not see anything I would change at this point. I do have her on ceftriaxone, although I do not know clinically that there is evidence of any infection, but this is to treat for possible postobstructive pneumonitis. cc: Arnold Choi MD
[2017-02-03] MEDS: ROCEPHIN 1 GM/NS 1 GM/50 ML IVPB IV SCH (15:45)
[2017-02-03] MEDS: NICODERM PATCH TD SCH (15:45)
[2017-02-04] MEDS ORDERED: CARDIZEM IV ONE (02:31)
[2017-02-04] MEDS: NS 1,000 ML IV SCH ×3 (02:58→17:11)
[2017-02-04] MEDS: ATROVENT NEB INH SCH ×6 (03:40→22:35)
[2017-02-04] MEDS: XOPENEX NEB INH SCH ×6 (03:41→22:35)
[2017-02-04] MEDS: PROTONIX IV SCH ×2 (04:13→16:10)
[2017-02-04] MEDS: SODIUM CHLORIDE 0.9% INJ SCH (04:13)
--- NOTE | 2017-02-04 05:10 | EKG Report ---
Test Performed on : 02/04/2017 02:24:15 AM Test Reason : RULE OUT AFIB Blood Pressure : / mmHG Vent. Rate : 105 BPM Atrial Rate : 105 BPM P-R Int : 138 ms QRS Dur : 080 ms QT Int : 332 ms P-R-T Axes : 054 032 069 degrees QTc Int : 438 ms Sinus tachycardia. with premature supraventricular complexes. and with occasional premature ventricu lar complexes. Possible Left atrial enlargement Borderline ECG When compared with ECG of 07-JAN-2017 06:25, premature ventricular complexes. are now present premature supraventricular complexes. are now present Confirmed by Demetrius PEREZ, Giovanny Guevara ([id number]) on 02/06/2017 12:39:02 PM
[2017-02-04 07:15] LABS: HEMATOCRIT 36.4 % (37.0-47.0); HEMOGLOBIN 11.6 g/dL (12.0-16.0); LYMPH# 0.38 X1000 (1.2-3.4); LYMPH% 2.6 % (20.5-51.1); MANUAL DIFF NEEDED? YES; MCH 27.6 PG (27-31); MCHC 31.9 g/dL (33-37); MCV 86.7 FL (81-99); MONO# 0.65 X1000 (0.11-0.59); MONO% 4.4 % (1.7-9.3); PLT 406 X1000 (130-400)
[2017-02-04 07:22] LABS: AGAP 10; BUN 7 mg/dL (8-22); CALCIUM 8.8 mg/dL (8.8-10.2); CHLORIDE 101 mmol/L (98-107); COSMO 281; POTASSIUM 3.3 mmol/L (3.5-5.1); SODIUM 140 mmol/L (136-145); TCO2 29 mmol/L (25-35)
[2017-02-04 07:50] LABS: BANDS 8 % (0-1); LYMPHS 2 % (21-51); MONO 4 % (1-9)
[2017-02-04] MEDS: LOVENOX SUBQ SCH (09:09)
[2017-02-04] MEDS: SOLU-MEDROL IV SCH ×3 (09:37→22:31)
[2017-02-04] MEDS: NICODERM PATCH TD SCH (09:37)
[2017-02-04] MEDS: CARDIZEM CD PO SCH (09:39)
[2017-02-04] MEDS: NORVASC PO SCH (09:40)
[2017-02-04] MEDS: PERICOLACE PO SCH ×2 (09:40→22:30)
[2017-02-04] MEDS: NEURONTIN PO SCH (09:40)
[2017-02-04] MEDS: PULMICORT INH SCH ×2 (11:10→22:34)
--- NOTE | 2017-02-04 12:12 | CONSULTATION ---
DATE OF CONSULTATION: 02/03/2017 CONSULTATION REQUESTED BY: Hospitalist service. REASON FOR CONSULTATION: Metastatic cancer, patient known. HISTORY OF PRESENT ILLNESS: Ms. Martinez is a 76-year-old female, who is known to us as we have previously treated her for metastatic head and neck cancer. The patient has previously received chemo/radiation with Erbitux. She received 6 cycles of Erbitux and then discontinued treatment due to toxicities. Patient did complete palliative radiation. She has also undergone a second course of palliative radiation to a recent nasal cavity recurrence. The patient was admitted to the hospital about 1 month ago with increased shortness of breath. A CT scan at that time revealed her to have some new lung masses. The patient again at that time declined any systemic treatment. She was offered to be sent home with hospice versus palliative care versus home health. Patient opted for home health. She is now back with again shortness of breath and was believed to be COPD exacerbation. CT scan done during this hospital admission shows some worsening of her disease. Patient is also having difficulty with swallowing. She is set to have an EGD with possible esophageal dilation tomorrow. The patient is now inquiring about receiving some sort of systemic treatment. PAST MEDICAL HISTORY: 1. Metastatic head and neck cancer. 2. Hypertension. 3. Chronic COPD. PAST SURGICAL HISTORY: None. FAMILY HISTORY: Positive for mother who of Alzheimer and her father who in a car accident. Her brother also from colon cancer. She has family history of diabetes mellitus. SOCIAL HISTORY: The patient is not currently . She lives with her daughter. She has approximately a 60 pack-year history. She is a current everyday smoker. She denies any alcohol or illicit drug use. REVIEW OF SYSTEMS: As per HPI. All else negative and noncontributory. PHYSICAL EXAMINATION: Vital Signs: Temperature is 97.4 degrees, heart rate 91, respirations 20, blood pressure 150/76, O2 saturation is 98% on 2 L nasal cannula. General: female lying in hospital bed. She is in no acute distress. Head: Head normocephalic, atraumatic. Eyes: Pupils equal, round, reactive. Ears, nose, throat, neck: Oral mucosa is normal. Trachea is midline. Gross auditory acuity is intact. Cardiovascular: S1, S2 heard. No murmurs, gallops, rubs appreciated. Regular rate and rhythm. Respiratory: Coarse breath sounds with some scattered wheezing and rhonchi noted bilaterally. Normal respiratory effort. No acute respiratory distress. Gastrointestinal: Abdomen is soft and nontender. Nondistended. Positive bowel sounds. Musculoskeletal: No bony abnormalities. Extremities: No edema noted. Neurologic: Patient alert and oriented x3 with no focal motor deficits. LABS AND STUDIES: White blood cell is 5.07, hemoglobin 11.4, hematocrit 35.4, platelets 397. Sodium 139, potassium 3.7, chloride 99, CO2 25, BUN 7, creatinine 0.5, glucose 126. CT angio shows worsening metastatic disease. No evidence of pulmonary emboli. She has extensive matted adenopathy in the corine and mediastinum. This is slightly worse when compared to 01/05/2017. There is a lesion in the posterior left temporal lobe on image 78 which has increased in size from 19 to over 22 mm in dimension. There is another lesion in the lateral costophrenic sulcus of the right lower lobe, which has increased from 15 mm to 19 mm. A barium swallow shows her to have esophageal spasms without any significant delay in her clearance of her esophagus. ASSESSMENT AND PLAN: 1. Metastatic head and neck cancer, status post 6 cycles of Erbitux as well as radiation therapy. The patient discontinued Erbitux early secondary to toxicities. After that, the patient had declined any further systemic treatment. Patient as of her most recent hospitalization had requested no further systemic treatment and opted for palliation only. Patient now is inquiring about receiving treatment. We discussed how this could be possible, but we would have to follow up with her as an outpatient for further staging and treatment planning at that time. Once patient is discharged, will set her up with an office visit. 2. Chronic obstructive pulmonary disease exacerbation. Continue oxygen support, intravenous antibiotics, intravenous steroids and nebulizer treatments. Slowly improving. 3. Dysphagia. The patient is due for esophagogastroduodenoscopy with gastroenterology tomorrow. We want to thank you for this consult and allowing us to participate in Ms. Martinez's care with [facility]. Will continue to follow along and adjust our treatment plan per hospital course. Dictated by JAMEEL Blevins for Jesús Martinez MD cc: Jesús Martinez MD
[2017-02-04] MEDS ORDERED: DIPRIVAN 1% ONE (12:19)
--- NOTE | 2017-02-04 12:37 | OPERATIVE NOTE ---
PROCEDURE DATE: 02/04/2017 PROCEDURES: 1. Esophagogastroduodenoscopy. 2. Esophageal dilation. PREOPERATIVE DIAGNOSIS: Dysphagia. POSTOPERATIVE DIAGNOSIS: Extension of the tumor, pressing on the upper esophageal sphincter, dilated. DESCRIPTION OF PROCEDURE: After informed consent and adequate intravenous sedation by Anesthesia, the scope was introduced into the pharynx. The patient has tumor extending into the hypopharynx, pressing on the upper esophageal sphincter. The scope was advanced all the way and the rest of the esophagus, stomach, and duodenum were normal. A 54-English Puga dilator was used and dilated. There was no evidence of any bleeding. The scope was withdrawn. The patient tolerated the procedure without any immediate complications. PLAN: Patient may come to PEG if the tumor continues to grow. cc: Alicia Rose MD
[2017-02-04] MEDS ORDERED: LR 1,000 ML ONE (13:01)
[2017-02-04] MEDS ORDERED: XYLOCAINE-MPF 2% ONE (13:01)
[2017-02-04] MEDS: ROCEPHIN 1 GM/NS 1 GM/50 ML IVPB IV SCH (14:42)
--- NOTE | 2017-02-04 18:06 | PROGRESS NOTE ---
DATE: 02/04/2017 Ms. Martinez is feeling much better. She is discussed with Dr. Martinez and I think they are going to pursue some treatment. Her breathing is better. She is eating a little better. She did get esophageal dilatation. She is swallowing better and feels better. Temp 97.6 degrees, pulse 103, respirations 20, blood pressure 143/69. Lungs: Are clear in all lung de guzman. Cardiovascular: Regular rhythm and rate without murmur or S3. Abdomen: Soft. Skin: Is warm and dry. Urine output 1800 to 1900 mL. LAB: White count 43287, hematocrit 36, platelet count 460,000. Sodium 140, potassium 3.3, chloride 101, bicarb 20, BUN 7, creatinine 0.7. ASSESSMENT AND PLAN: 1. Dysphagia, extension of the tumor presenting on the upper esophageal sphincter. She was dilated. Swallowing much better. The patient may come and may have to pursue a PEG tube if tumor grows. 2. Her breathing is a little bit better. 3. COPD with exacerbation combined with lung cancer metastatic disease. 4. Anemia which is stable. She has metastatic head and neck cancer status post 6 cycles of Erbitux as well as radiation treatment. The patient discontinued her Erbitux early secondary to toxicities. After that the patient is declining further systemic treatment. This is her most recent hospitalization and requesting no further systemic treatment. Continue present treatment. Hope to send her home in the morning. Looked over orders, do not see any changes. cc: Arnold Choi MD
[2017-02-05] MEDS: ATROVENT NEB INH SCH ×2 (03:27→08:13)
[2017-02-05] MEDS: XOPENEX NEB INH SCH ×2 (03:28→08:14)
[2017-02-05] MEDS: NS 1,000 ML IV SCH ×2 (04:39→14:11)
[2017-02-05] MEDS: SODIUM CHLORIDE 0.9% INJ SCH (04:40)
[2017-02-05] MEDS: PROTONIX IV SCH (04:40)
[2017-02-05] MEDS: NORVASC PO SCH (07:59)
[2017-02-05] MEDS: NEURONTIN PO SCH (07:59)
[2017-02-05] MEDS: PERICOLACE PO SCH (07:59)
[2017-02-05] MEDS: CARDIZEM CD PO SCH (07:59)
[2017-02-05] MEDS: LOVENOX SUBQ SCH ×2 (08:00→08:04)
[2017-02-05] MEDS: SOLU-MEDROL IV SCH (08:00)
[2017-02-05] MEDS: NICODERM PATCH TD SCH (08:00)
[2017-02-05] MEDS: PULMICORT INH SCH (08:13)
[2017-02-05 11:35] VITALS: BP 152/79
[2017-02-05] MEDS ORDERED: CARDIZEM CD PO ONE (13:19)
--- NOTE | 2017-02-05 16:53 | DISCHARGE SUMMARY ---
ADMISSION DATE: 02/02/2017 DISCHARGE DATE: 02/05/2017 This is a 76-year-old female who presented with shortness of breath. Was put in early in December, 01/05/2017 with similar symptoms. Followed by Yvonne Gonsalez, underlying lung cancer and is undergoing therapy. She got therapy for a lesion on her neck as well. Has been losing weight. Appetite is poor. Progressively has become more short of breath. CT of scan reveals appears to be increased spread of lung cancer, increased tumor load. She has had to increase her FiO2. PAST MEDICAL HISTORY: 1. Lung cancer. 2. Skin cancer. 3. Underwent chemotherapy, some radiation for the lymph nodes in her neck, radiation on her nose for cancer, undergoing chemotherapy at the present time with Dr. Russell. 4. Hypertension. 5. COPD O2 dependent. So she is admitted with COPD exacerbation, hypoxemia with increased metastatic lung cancer. Tumor load apparent radiographically. She did clinically showed some improvement. The main thing was that she is having trouble swallowing so she underwent EGD and had esophageal dilatation and she is swallowing much better. [place]all much better and was getting food down. Blood pressure controlled. Wanted to go home on 02/05/2017. DISCHARGE MEDICATIONS: Will be as follows. Tylenol as needed. Norvasc 2.5 mg a day. Pulmicort 0.5 mg b.i.d. Cardizem CD 180 mg daily. Neurontin 300 mg daily. Atrovent 0.5 mg q.4 hours, and Xopenex q.4 hours p.r.n. Solu-Medrol was given, we will stop. She was getting 40 mg IV q.8 and we will stop that. NicoDerm patch 21 mg a day. Prilosec 10 mg t.i.d. Protonix and switch her to p.o. 40 mg twice a day. Colace 2 b.i.d. cc: Arnold Choi MD
--- NOTE | 2017-02-21 11:05 | PROVIDER DOCUMENTATION ---
This chart was entered by Geeta Sow Scribe, acting as scribe for Melissa Fowler Jr, MD. HPI-Respiratory General - General Chief Complaint: Shortness of Breath Stated Complaint: SOB Time Seen by Provider: 02/02/17 09:03 Source: patient, family Allergies/Adverse Reactions: Patient Allergies Allergy/AdvReac Type Severity Reaction Status Date / Time Egg Derived Allergy ANAPHYLAXIS Verified 02/02/17 08:11 Home Medications: Home Medication List Medication Instructions Recorded Confirmed Last Taken Type Amlodipine Besylate [Norvasc] 2.5 mg PO DAILY 01/05/17 02/02/17 02/01/17 History Gabapentin 300 mg PO DAILY 01/05/17 02/02/17 02/01/17 History Oxycodone HCl/Acetaminophen 1 each PO TID PRN PRN 01/05/17 02/02/17 02/01/17 History [Percocet 10-325 mg Tablet] Albuterol 2.5MG/Ipratrop 0.5MG 3 ml INH RTQ4H #30 neb 01/07/17 02/02/17 Rx [Duoneb (A & A)] Diltiazem C.d. [Cardizem Cd] 180 mg PO DAILY #30 capsule 01/07/17 02/02/1702/02 Rx - History of Present Illness-Resp Nature of Presenting Problem: PT IS A 76YOF PRESENTING TO THE ED C/O SOB. PT STATES SHE HAS METASTATIC LUNG CA AND CURRENTLY NOT TAKING ANY CHEMO OR RADIATION. PT STATES THAT YESTERDAY SHE BECAME MORE SOB AND WAS UNABLE TO RESOLVE SYMPTOMS WITH HOME OXYGEN AND NEBULIZER TREATMENTS. PTS FAMILY STATES ABOUT A MONTH PRIOR THEY ATTEMPTED TO DO CHEMO AND MADE HER SICK AND HAD TO BE ADMITTED TO HOSPITAL AND THEN THEY TRIED RADIATION AND PT ONLY TOOK HALF OF HER 30 DAY TREATMENT DUE TO IT MAKING HER SICK WELL. PTS FAMILY "THINKS HER OXYGEN NEEDS TO BE INCREASED AT HOME." NO OTHER COMPLAINTS AT THIS TIME Quality of Pain: reports: fullness Severity in ED: reports: mild Onset/Duration: reports: gradual, 24 hours ago Timing: reports: still present Context: reports: other (RADIATION AND 1 CHEMO TREATMENT IN THE PAST MONTH) Cough Quality/Degree: reports: mild, dry cough Episode Frequency: chronic episodes Current Respiratory Medication Therapy: Initiated see nurses note Modifying Factors: improves with: exertion, oxygen, sitting upright Associated Symptoms: reports: cough, shortness of breath. denies: chest pain/ soreness, sore throat Similar Symptoms Previously?: Yes Recently seen or treated by another doctor?: Yes (DR PEREIRA LAST WEEK) Review of Systems - Adult - REVIEW OF SYSTEMS - ADULT Constitutional: reports: see HPI, fatique. denies: fever, night sweats Eyes: reports: no symptoms reported Ears, Nose, Mouth & Throat: reports: no symptoms reported Cardiovascular: reports: no symptoms reported Respiratory: reports: see HPI, cough, dyspnea on exertion, shortness of breath, wheezing, other (STAGE 4 METASTATIC LUNG CA) Gastrointestinal: reports: no symptoms reported Genitourinary: reports: no symptoms reported Musculoskeletal: reports: no symptoms reported Integumentary: reports: no symptoms reported Neurological: reports: no symptoms reported Psychiatric: reports: no symptoms reported Endocrine: reports: no symptoms reported Hematologic/Lymphatic: reports: no symptoms reported Allergic/Immunologic: reports: no symptoms reported All Other Systems: Reviewed and Negative Past History - Adult - PAST MEDICAL HISTORY-ADULT Review of Records: reports: Old Records Reviewed, Nursing Assessment Review, Medications Reviewed, Social history reviewed & non-contributory. Major Childhood Illnesses: reports: denies history Cardiovascular: reports: denies history Respiratory: reports: denies history Gastrointestinal: reports: denies history Obstetrical/Gynecological: reports: denies history Genitourinary: reports: denies history Musculoskeletal: reports: denies history Neurological: reports: denies history Endocrine/Immune: reports: denies history Other Conditions: reports: denies history - IMMUNIZATION STATUS Childhood Immunizations: See Nurse Assessment Flu Vaccine: See Nurse Assessment - FAMILY HISTORY Family History: reviewed, not pertinent - SOCIAL HISTORY Smoking: cigarettes, less than 1 pack/day Provider spent 3-5 mins advising pt. on dangers of tobacco.: Discussed manners to quit use, and f/u contacts for add'l counseling. Substance Use: denies Alcohol Use Frequency: never Living Situation: family Physical Exam-General - PHYSICAL EXAM-ADULT Initial Vital Signs Reviewed: Yes - CONSTITUTIONAL General Appearance: alert, moderate distress, thin. negative: appears well - EYES Eyes: PERRL/EOMI, pink conjunctivae - HEAD, EARS, NOSE, MOUTH & THROAT HENMT: normocephalic/atraumatic, moist mucous membranes, normal ENT inspection, TMs normal, pharynx normal - NECK Neck: non-tender, full range of motion, supple, normal inspection - RESPIRATORY Respiratory: chest non-tender, no pleuratic chest pain, no respiratory distress , no accessory muscle use, decreased breath sounds, wheezing. negative: lungs clear, normal breath sounds - CARDIOVASCULAR Cardiovascular: normal peripheral pulses, regular rate, rhythm, no edema, no gallop, no JVD, no murmur - GASTROINTESTINAL (ABDOMEN) Abdominal Exam: normal bowel sounds, non tender, soft, no organomegaly, no pulsatile mass - LYMPHATIC Lymphatic: no adenopathy - MUSCULOSKELETAL Back Exam: normal inspection, no CVA tenderness, no vertebral tenderness Extremity: normal range of motion, non-tender, no pedal edema, no calf tenderness, normal capillary refill, pelvis stable. negative: normal gait, normal inspection - SKIN Integumentary: normal turgor, warm/dry, pallor. negative: normal color - NEUROLOGIC Neurologic: helper teacher II-XII nml as tested, grossly normal, no motor/sensory deficits - PSYCHIATRIC Psych/Mental Status: normal mood/affect, normal thought content, normal thought process, oriented x 3 Progress - PLAN OF CARE/RESULTS Progress/Plan/Lab Results: Vital Signs - 8 hr 02/02/17 07:54 02/02/17 08:05 02/02/17 09:06 Temperature 97.8 F Pulse Rate 98 H 110 H 90 Respiratory Rate 24 24 19 Blood Pressure 150/98 150/87 150/87 O2 Sat by Pulse Oximetry 98 98 99 02/02/17 09:50 02/02/17 11:22 Temperature Pulse Rate 92 H 91 H Respiratory Rate 20 23 Blood Pressure 150/87 O2 Sat by Pulse Oximetry 96 94 L Laboratory Results - last 24 hr 02/02/17 02/02/17 02/02/17 12:36 12:36 13:05 WBC 8.17 RBC 4.32 Hgb 11.8 L Hct 36.8 L MCV 85.2 MCH 27.3 MCHC 32.1 L RDW Std Deviation 14.7 H Plt Count 404 H MPV 8.6 Immature Gran % (Auto) 0.0 Neut % (Auto) 71.6 Lymph % (Auto) 11.6 L [place] % (Auto) 15.9 H Eos % (Auto) 0.5 Baso % (Auto) 0.4 Immature Gran # (Auto) 0.00 Neut # (Auto) 5.85 Lymph # (Auto) 0.95 L [place] # (Auto) 1.30 H Eos # (Auto) 0.04 Baso # (Auto) 0.03 Specimen Type ARTERIAL Sample Site R RADIAL pH 7.47 H pCO2 44 pO2 85 HCO3 30.8 H Base Excess 7.5 H Oxyhemoglobin 96.4 ABG O2 Sat (Calculated) 15.3 ABG O2 Saturation 98.8 ABG Carboxyhemoglobin 1.90 ABG Methemoglobin 0.6 Arnold Test YES A-a O2 Difference 60.0 Total Hemoglobin 11.2 L Lactate 0.90 Liter Flow 2.0 Blood Gas Modality CANNULA FiO2 % 28.0 Sodium 135 L Potassium 3.3 L Chloride 95 L Carbon Dioxide 28 Anion Gap 12 BUN 9 Creatinine 0.5 Estimated GFR/1.73 m2 > 60 BUN/Creatinine Ratio 18 Glucose 130 H Calculated Osmolality 271 Calcium 9.3 Total Bilirubin 0.35 AST 11 ALT 7 L Alkaline Phosphatase 95 Total Protein 6.4 Albumin 3.3 L Globulin 3.1 Albumin/Globulin Ratio 1.1 Orders Category Date Time Status Oxygen Therapy- ED Nursing DIRECTED Care 02/02/17 09:31 Active Saline Loc DIRECTED Care 02/02/17 09:31 Active Regular Diet Diet 02/02/17 09:59 Active ANGIOGRAM/PULMONARY ARTERIES [CT] Stat Exams 02/02/17 13:28 Ordered CHEST-2 VIEWS [RAD] Stat Exams 02/02/17 09:32 Completed ABG [RESP] Routine Lab 02/02/17 13:05 Completed CBC WITH ELECTRONIC DIFF [HEME] Stat Lab 02/02/17 12:36 Completed COMPREHENSIVE METABOLIC PANEL [CHEM] Stat Lab 02/02/17 12:36 Completed Albuterol 2.5MG/Ipratrop 0.5MG [Duoneb (A & A)] Med 02/02/17 09:31 Discontinued 3 ml INH NOW ONE Aerosol Treatments Routine Oth 02/02/17 09:31 Completed Aerosol Treatments Stat Oth 02/02/17 09:31 Completed Aerosol Treatments Stat Oth 02/02/17 09:31 Completed Pulse Oximetry Stat Oth 02/02/17 09:31 Completed Orders Category Date Time Status Oxygen Therapy- ED Nursing DIRECTED Care 02/02/17 09:31 Active Saline Loc DIRECTED Care 02/02/17 09:31 Active CHEST-2 VIEWS [RAD] Stat Exams 02/02/17 09:32 Ordered CBC WITH ELECTRONIC DIFF [HEME] Stat Lab 02/02/17 09:32 Uncollected COMPREHENSIVE METABOLIC PANEL [CHEM] Stat Lab 02/02/17 09:32 Uncollected Albuterol 2.5MG/Ipratrop 0.5MG [Duoneb (A & A)] Med 02/02/17 09:31 Discontinued 3 ml INH NOW ONE Aerosol Treatments Routine Oth 02/02/17 09:31 Active Aerosol Treatments Stat Oth 02/02/17 09:31 Active Aerosol Treatments Stat Oth 02/02/17 09:31 Active Pulse Oximetry Stat Oth 02/02/17 09:31 Active Result Diagrams: 02/02/17 12:36 02/02/17 12:36 - XRAY 1 XRAY: Bilateral XRAY Study: Chest (WORSENING PULMONARY METASTATIC DISEASE) - CONSULTS/PCP/HOSPITALIST Notification #1 *Consult/PCP/Hospitalist*: Dr. Choi Time Discussed: 13:30 Consult Disposition: Admit (per SOFTWARE TEST ENGINEER) Departure - Departure Date of Disposition Decision: 02/02/17 Time of Disposition Decision: 13:30 DIAGNOSIS: Lung cancer Qualifiers: Laterality: unspecified laterality Lung location: unspecified part of lung Qualified Code(s): C34.90 - Malignant neoplasm of unspecified part of unspecified bronchus or lung Dyspnea Qualifiers: Dyspnea type: shortness of breath Qualified Code(s): R06.02 - Shortness of breath Disposition: ADMITTED INPATIENT 09 Certified Medical Emergency: Emergent Condition: Fair Referrals and Follow-Ups: None,PCP [Primary Care Provider] - - Critical Care Note This patient required my direct & personal management of CC.: No This chart was documented by the indicated scribe, (Geeta Sow Scribe) and accurately reflects the services I performed and decisions made by me, Melissa Fowler Jr, MD, as attested by the provider's signature.
== END 2017-02-05 14:23 | disposition home or self-care (01) ==
LOC: ED 07:52 → 3N 14:59
PROVIDERS: ATTEND Emergency Medicine

== ENCOUNTER 2017-02-09 19:33 | Inpatient (IN) ==
[2017-02-09] MEDS ORDERED: DUONEB (A & A) ONE (19:49)
[2017-02-09] MEDS ORDERED: CARDIZEM IV ONE ×2 (19:50→20:00)
[2017-02-09] MEDS ORDERED: CARDIZEM ONE (19:51)
[2017-02-09] MEDS: CARDIZEM 100 MG/NS 100 MG/100 ML IVPB IV SCH ×2 (20:31→20:38)
--- NOTE | 2017-02-09 20:57 | Diag Imaging Result Doc PS360 ---
EXAM: CHEST-PORTABLE HISTORY: copd/ lung cancer TECHNIQUE: Portable upright COMPARISON: 02/02/2017 FINDINGS: There are many scattered nodules bilaterally. No definite change. The heart is not enlarged. No pleural effusions identified. No change in the right-sided portacatheter. No pneumothorax. No consolidation. Hilar prominence remains. IMPRESSION: Stable chest Electronically signed by Krunal Johnson 02/09/2017 8:54 PM
[2017-02-09 21:05] LABS: EOS# 0.01 X1000 (0.0-0.7); HEMATOCRIT 38.7 % (37.0-47.0); HEMOGLOBIN 12.4 g/dL (12.0-16.0); LYMPH# 0.81 X1000 (1.2-3.4); LYMPH% 2.7 % (20.5-51.1); MANUAL DIFF NEEDED? YES; MCH 27.8 PG (27-31); MCV 86.8 FL (81-99); MONO% 9.9 % (1.7-9.3); MPV 9.7 FL (7.4-10.4); NEUT% 87.4 % (42.2-75.2); PLT 363 X1000 (130-400); RBC 4.46 XMIL (4.2-5.4)
[2017-02-09 21:06] LABS: AGAP 21; ALKALINE PHOSPHATASE 97 U/L (32-104); BUN 13 mg/dL (8-22); CALCIUM 8.8 mg/dL (8.8-10.2); CHLORIDE 93 mmol/L (98-107); COSMO 283; GOT 9 U/L (10-30); GPT 8 U/L (10-36); SODIUM 139 mmol/L (136-145); TCO2 25 mmol/L (25-35); TOTAL BILIRUBIN 0.37 mg/dL (0.20-1.00); TOTAL PROTEIN 6.5 g/dL (6.3-8.3)
[2017-02-09 21:39] LABS: BANDS 2 % (0-1); LYMPHS 4 % (21-51); MONO 8 % (1-9)
[2017-02-09] MEDS ORDERED: KLOR-CON PO ONE (22:06)
[2017-02-09] MEDS ORDERED: NICODERM PATCH TD ONE (22:06)
[2017-02-09] MEDS ORDERED: XANAX PO ONE (22:07)
--- NOTE | 2017-02-09 22:25 | PROVIDER DOCUMENTATION ---
This chart was entered by Dianne Mackey Scribe, acting as scribe for Quoc Vogel MD. HPI-Respiratory General - General Chief Complaint: Shortness of Breath Stated Complaint: sob Time Seen by Provider: 02/09/17 19:45 Source: patient Allergies/Adverse Reactions: Patient Allergies Allergy/AdvReac Type Severity Reaction Status Date / Time Egg Derived Allergy ANAPHYLAXIS Verified 02/09/17 19:55 Home Medications: Home Medication List Medication Instructions Recorded Confirmed Last Taken Type Amlodipine Besylate [Norvasc] 2.5 mg PO DAILY 01/05/17 02/09/17 02/09/17 07:00 History Gabapentin 300 mg PO DAILY 01/05/17 02/09/17 02/08/17 20:00 History Oxycodone HCl/Acetaminophen 1 each PO TID PRN PRN 01/05/17 02/09/17 02/09/17 18: 00 History [Percocet 10-325 mg Tablet] Albuterol 2.5MG/Ipratrop 0.5MG 3 ml INH RTQ4H #30 neb 01/07/17 02/09/17 18:00 Rx [Duoneb (A & A)] Diltiazem C.d. [Cardizem Cd] 180 mg PO DAILY #30 capsule 01/07/17 02/09/1702/09 07:00 Rx Acetaminophen [Tylenol] 650 mg PO Q4-6H PRN PRN #0 tablet 02/05/17 02/09/17 Unknown Rx Nicotine Patch [Nicoderm Patch] 21 mg TD DAILY #14 patch.[id number] 02/05/17 02/09/17 Unknown Rx Pantoprazole [Protonix] 40 mg PO DAILY@0700 02/09/17 02/09/17 02/09/17 07:00 History - History of Present Illness-Resp Nature of Presenting Problem: 76 Y/O F presents to ED with SOB. EMS states that pt was seen earlier today and discharged from [facility] went home 10-15 mins later called EMS complaining of SOB. On arrival Pt states that that O2 states where in the 70s EMS gave Pt 4L still stating in the 70s and on 6L 80s and on 15L in the 90s EMS states that dropped back down into the 80s on arrival to ED. Pt has stage 4 lung cancer, and COPD. Recent Esophageal dilation due to not being able to swallow Quality of Pain: reports: tightness Severity in ED: reports: severe Onset/Duration: reports: this evening Timing: reports: still present Cough Quality/Degree: reports: mild Episode Frequency: frequent episodes Current Respiratory Medication Therapy: Initiated see nurses note Modifying Factors: improves with: oxygen Associated Symptoms: reports: shortness of breath Similar Symptoms Previously?: Yes Recently seen or treated by another doctor?: Yes (02/09/17 [facility] ) Review of Systems - Adult - REVIEW OF SYSTEMS - ADULT Constitutional: denies: chills, fever Eyes: reports: no symptoms reported Ears, Nose, Mouth & Throat: reports: no symptoms reported Cardiovascular: reports: no symptoms reported Respiratory: reports: shortness of breath Gastrointestinal: reports: no symptoms reported Genitourinary: reports: no symptoms reported Musculoskeletal: reports: no symptoms reported Integumentary: reports: no symptoms reported Neurological: reports: no symptoms reported Psychiatric: reports: no symptoms reported Endocrine: reports: no symptoms reported Hematologic/Lymphatic: reports: no symptoms reported Allergic/Immunologic: reports: no symptoms reported All Other Systems: Reviewed and Negative Past History - Adult - PAST MEDICAL HISTORY-ADULT Review of Records: reports: Old Records Reviewed, Nursing Assessment Review, Medications Reviewed, Social history reviewed & non-contributory. - IMMUNIZATION STATUS Childhood Immunizations: See Nurse Assessment Flu Vaccine: See Nurse Assessment Physical Exam-General - CONSTITUTIONAL General Appearance: alert, moderate distress, cachetic - EYES Eyes: PERRL/EOMI, pink conjunctivae - HEAD, EARS, NOSE, MOUTH & THROAT HENMT: TMs normal, pharynx normal - NECK Neck: full range of motion, supple - RESPIRATORY Respiratory: respiratory distress, accessory muscle use, crackles, rales, rhonchi, wheezing, increased rate - CARDIOVASCULAR Cardiovascular: tachycardia - GASTROINTESTINAL (ABDOMEN) Abdominal Exam: normal bowel sounds, non tender, soft, no organomegaly - LYMPHATIC Lymphatic: no adenopathy - MUSCULOSKELETAL Back Exam: normal inspection Extremity: other (livido reticularis on lower extremity) - SKIN Integumentary: dependent lividity, mottled - NEUROLOGIC Neurologic: grossly normal - PSYCHIATRIC Psych/Mental Status: normal mood/affect, oriented x 3 Progress - PLAN OF CARE/RESULTS Progress/Plan/Lab Results: Vital Signs - 8 hr 02/09/17 19:47 02/09/17 19:51 Temperature 97.7 F Pulse Rate 163 H Respiratory Rate 32 H Blood Pressure 141/88 O2 Sat by Pulse Oximetry 96 95 Laboratory Results - last 24 hr 02/09/17 02/09/17 20:05 20:05 WBC 30.30 H RBC 4.46 Hgb 12.4 Hct 38.7 MCV 86.8 MCH 27.8 MCHC 32.0 L RDW Std Deviation 15.6 H Plt Count 363 MPV 9.7 Neut % (Auto) 87.4 H Lymph % (Auto) 2.7 L [place] % (Auto) 9.9 H Eos % (Auto) 0.0 Baso % (Auto) 0.0 Neut # (Auto) 26.47 H Lymph # (Auto) 0.81 L [place] # (Auto) 3.00 H Eos # (Auto) 0.01 Baso # (Auto) 0.01 Segmented Neutrophils 86 H Band Neutrophils 2 H Lymphocytes 4 L Monocytes 8 Pathologist Review Sodium 139 Potassium 3.0 L Chloride 93 L Carbon Dioxide 25 Anion Gap 21 BUN 13 Creatinine 0.5 Estimated GFR/1.73 m2 > 60 BUN/Creatinine Ratio 26 Glucose 193 H Calculated Osmolality 283 Calcium 8.8 Total Bilirubin 0.37 AST 9 L ALT 8 L Alkaline Phosphatase 97 Total Protein 6.5 Albumin 3.0 L Globulin 3.5 Albumin/Globulin Ratio 0.9 Orders Category Date Time Status Oxygen Therapy- ED Nursing DIRECTED Care 02/09/17 20:16 Active Saline Loc DIRECTED Care 02/09/17 20:16 Active CHEST-PORTABLE [RAD] Stat Exams 02/09/17 20:40 Completed CBC WITH ELECTRONIC DIFF [HEME] Stat Lab 02/09/17 20:05 Completed COMPREHENSIVE METABOLIC PANEL [CHEM] Stat Lab 02/09/17 20:05 Completed Albuterol 2.5MG/Ipratrop 0.5MG [Duoneb (A & A)] Med 02/09/17 19:49 Discontinued 3 ml .ROUTE .STK-MED ONE Alprazolam [Xanax] Med 02/09/17 22:07 Discontinued 0.5 mg PO NOW ONE Diltiazem 100 mg/Ns [Cardizem 100 mg/Ns] Med 02/09/17 20:09 Active 100 mg in 100 ml IV Per Protocol Diltiazem [Cardizem] Med 02/09/17 19:51 Discontinued 25 mg .ROUTE .STK-MED ONE Nicotine Patch [Nicoderm Patch] Med 02/09/17 22:06 Discontinued 21 mg TD NOW ONE Potassium Chloride E.r. [Klor-Con] Med 02/09/17 22:06 Discontinued 40 meq PO NOW ONE Pulse Oximetry Stat Oth 02/09/17 20:16 Active EKG [EKG] Stat Ther 02/09/17 19:41 Ordered Reviewed End of Life issues with pt, wants to be a full code although she is in Hospice. 10 of Cardizem IV converted to Sinus. Pt returned back to Atrial Fluter. Placed on Drip. Result Diagrams: 02/09/17 20:05 02/09/17 20:05 - EKG 1 Time of EKG reading by physician:: 19:45 EKG Read and Signed by:: Quoc Vogel EKG Interpretation (*Must complete 3 of following elements*): Abnormal (ST&T wave abnormality, consider inferior ischemia. ST&T wave abnormality, consider anterolateral ischemia) Rate: 163 Rhythm: Atrial Flutter with 2:1 AV conduction Comments: Abnormal ECG - XRAY 1 XRAY Study: Chest XRAY Interpretation: Stable Chest.(Radiology)[place] - CONSULTS/PCP/HOSPITALIST Notification #1 *Consult/PCP/Hospitalist*: Dr Wise Consult Disposition: Admit Departure - Departure Date of Disposition Decision: 02/09/17 Time of Disposition Decision: 22:22 DIAGNOSIS: Lung cancer, primary, with metastasis from lung to other site Qualifiers: Laterality: unspecified laterality Qualified Code(s): C34.90 - Malignant neoplasm of unspecified part of unspecified bronchus or lung Disposition: ADMITTED INPATIENT 09 Certified Medical Emergency: Emergent Condition: Poor Referrals and Follow-Ups: Domonique Duncan MD [Primary Care Provider] - - Critical Care Note This patient required my direct & personal management of CC.: Yes Total Time (mins): 30 Critical Care Statement: This patient required my direct personal management to treat or rule out processes, the absence of which, could potentiallly result in sudden, clinically significant life or limb threatening deterioration. This chart was documented by the indicated scribe, (Dianne Mackey Scribe) and accurately reflects the services I performed and decisions made by Jaspreet carey Robert H., MD, as attested by the provider's signature.
[2017-02-09] MEDS: SOLU-MEDROL IV SCH (23:45)
[2017-02-10] MEDS ORDERED: ATIVAN IV PRN (00:11)
[2017-02-10] MEDS ORDERED: TYLENOL PO PRN (00:11)
[2017-02-10] MEDS ORDERED: MORPHINE IV PRN (00:11)
[2017-02-10] MEDS ORDERED: LEVAQUIN 750 MG/D5W 750 MG/150 ML IVPB IV SCH (00:11)
[2017-02-10] MEDS: PROTONIX IV SCH ×2 (00:57→23:50)
[2017-02-10] MEDS: MAXIPIME 1 GM/NS 1 GM/50 ML IVPB IV SCH ×3 (00:57→23:50)
[2017-02-10] MEDS: SODIUM CHLORIDE 0.9% INJ SCH ×2 (00:57→23:50)
[2017-02-10] MEDS: NS 1,000 ML IV SCH ×3 (00:57→16:49)
--- NOTE | 2017-02-10 02:18 | HISTORY AND PHYSICAL ---
PRIMARY CARE PROVIDER: Domonique Duncan MD. AUGER PRESS OPERATOR: Savannah Ontiveros MD. ONCOLOGIST: Carolin Russell MD. CHIEF COMPLAINT: Shortness of breath. HISTORY OF PRESENT ILLNESS: A 76-year-old female with a history of stage IV lung cancer with metastasis to the esophagus and chest wall, who sees Dr. Duncan outpatient, who comes into the emergency room with shortness of breath. She has COPD, and is a long-time smoker since age 15. She was still smoking until she became progressively more and more short of breath. Her last admission to our service was on 02/02/2017, and she was treated for a pneumonia. Today, she started having shortness of breath and went to [place]'s emergency room. They increased her at home oxygen from 2 to 4 L and sent her home. About 15 minutes after she arrived home she had a panic attack related to feeling very short of breath, so they called EMS. She was noted to have an oxygen saturation around 70%, and was brought in to the emergency room. The patient has had a poor appetite, has been losing weight and becoming more and more progressively short of breath. I believe the CT had noted that the lung cancer had increased inside of her lungs. A chest x-ray was obtained today, which showed multiple nodules. No clear infiltrate was noted on the chest x- ray, but a noncontrasted CT is pending. She did have an elevated white blood cell count of 30.30. Also, the patient related to her oxygen starvation and panic attack, became very tachycardic, and flipped into an atrial flutter with a 2-1 conduction per EKG. Her rate on arrival was 163. She was given Cardizem, and has subsequently converted to sinus rhythm, with a rate in the 90s. She will be admitted to [facility] for further evaluation and treatment. PAST MEDICAL HISTORY: 1. Lung cancer, stage IV, with metastases to the esophagus. 2. COPD, with continued tobacco use in the form of cigarettes up until a few days ago when she became unable to smoke. 3. Skin cancer, I believe of the nose. 4. Hypertension. 5. History of chemotherapy and radiation for lymph nodes in her neck, and radiation on her nose for skin cancer. PREVIOUS SURGICAL HISTORY: Right chest Port-A-Cath placement. I attempted to over surgical history with the family. The daughter was at the bedside. However at this time, they were very emotional about their mother's condition. They were able to tell me that she had an EGD with esophageal dilation. Otherwise, was unable to assess past surgical history. ALLERGIES: Egg derivatives, causing anaphylaxis. SOCIAL HISTORY: Lives with her daughter. Has smoked cigarettes since 15 years of age. Has quit, related to not being able to breathe well to smoke enough. No alcohol or illicit drug use or abuse. She also worked in [employer] when she was younger, and has been exposed to secondhand smoke per the daughter as well. FAMILY HISTORY: Brother is , from colon cancer. HOME MEDICATIONS: 1. Percocet 10 one p.o. t.i.d. p.r.n. 2. Neurontin 300 mg p.o. daily. 3. Norvasc 2.5 mg p.o. daily. 4. Cardizem 180 p.o. daily. 5. DuoNeb q.4 hours. 6. Tylenol 650 q.4-6 p.r.n. 7. NicoDerm patch 21 mg transdermally daily. 8. Protonix 40 mg p.o. daily. REVIEW OF SYSTEMS: Fourteen point review of systems conducted with the patient. Pertinent positives listed above in the HPI. All other systems reviewed and found to be negative. PHYSICAL EXAMINATION: VITAL SIGNS: Temperature 97.7 degrees. Pulse on arrival was 163. Atrial flutter, 2-1 conduction. Minutes after I began my assessment, she converted to a normal sinus rhythm, with a rate of 90, respirations 20 on 80% BiPAP. Oxygen saturation 95%. GENERAL: A chronically ill-appearing 76-year-old female, lying in the ER stretcher, in no acute distress on BiPAP. Answers all questions appropriately. However, she appears to be exhausted and falls asleep easily. HEENT: Head is atraumatic, normocephalic. Pupils equal, round, reactive to light. Extraocular eye movement intact. Sclerae is anicteric. Conjunctivae is pink. Oral mucosa is dry. The patient is on BiPAP. NECK: Supple. No JVD. Trachea is midline. No cervical lymphadenopathy. CARDIAC: Regular rate and rhythm. The patient has converted to sinus rhythm. S1-S2 appreciated. No murmurs, gallops, rubs. LUNGS: Rhonchi noted throughout the lung de guzman. Symmetrical rise and fall with respirations. No wheezes, no rales. ABDOMEN: Soft, nondistended, nontender. Bowel sounds present in all 4 quadrants. Normoactive. No pulsatile mass. No organomegaly. EXTREMITIES: No clubbing, cyanosis, or edema. GENITOURINARY: No bladder distention noted. Will place Zaragoza catheter. Otherwise, deferred. NEUROLOGICAL: Alert and oriented x3. Nonfocal examination. However, no focal motor deficits were noted. DIAGNOSTIC DATA: Chest x-ray showed multiple pulmonary nodules, stable from last chest x-ray. CT without contrast is pending. LABORATORY DATA: WBC 30.30, hemoglobin 12.4, hematocrit 38.7, platelet count 363. Sodium 139, potassium 3, chloride 93, carbon dioxide 25, BUN 13, creatinine 0.5, glucose 193. ASSESSMENT AND PLAN: 1. Acute respiratory failure, secondary to chronic obstructive pulmonary disease and lung cancer. The patient has been placed on BiPAP, and is now saturating in the 90s, is resting much more comfortably. We will consult Dr. Ontiveros, her home appliances mechanic, to see patient in a.m. 2. Stage IV lung cancer. She is followed outpatient by Dr. Carolin Russell. We will consult Dr. Russell to see patient in the hospital. 3. Chronic obstructive pulmonary disease with exacerbation. We will give a very low-dose of steroids 40 mg IV q.12 hours, and DuoNebs q.6 hours. Continue BiPAP. 4. Leukocytosis of unknown etiology. The patient had a chest x-ray, that did not show any clear infiltrates, and patient has a urine sample that is pending. The patient was treated on 02/02/2017 for pneumonia. At this time, we will cover her for possible hospital acquired pneumonia, and treat with Levaquin 750 mg IV, as well as Maxipime IV q.12 hours. Blood cultures are pending. 5. Hypertension, aware. Patient is normotensive and on a Cardizem drip. We will hold the home dose of Cardizem, as well as her Norvasc at this time. 6. Further recommendations per patient's clinical course. Dictated by MOLLY León for Michael Rockwell MD cc: MOLLY León MD Mamoun I. Najjar, MD Sarah E. Styers, MD Heather Shah, MD
[2017-02-10] MEDS: DUONEB (A & A) INH SCH ×7 (02:43→23:42)
[2017-02-10 05:23] LABS: BASO% 0.1 % (0.0-0.8); HEMATOCRIT 35.4 % (37.0-47.0); HEMOGLOBIN 11.4 g/dL (12.0-16.0); IMM GRAN# 0.11 X1000 (0.0-0.04); IMM GRAN% 0.4 % (0.0-0.5); LYMPH# 0.41 X1000 (1.2-3.4); LYMPH% 1.5 % (20.5-51.1); MANUAL DIFF NEEDED? YES; MCH 27.4 PG (27-31); MCHC 32.2 g/dL (33-37); MCV 85.1 FL (81-99); MONO# 1.16 X1000 (0.11-0.59); MONO% 4.4 % (1.7-9.3); MPV 9.4 FL (7.4-10.4); NEUT% 93.6 % (42.2-75.2); PLT 315 X1000 (130-400); RBC 4.16 XMIL (4.2-5.4)
--- NOTE | 2017-02-10 05:28 | EKG Report ---
Test Performed on : 02/09/2017 7:45:06 PM Test Reason : Shortness of breath Blood Pressure : / mmHG Vent. Rate : 163 BPM Atrial Rate : 326 BPM P-R Int : 000 ms QRS Dur : 094 ms QT Int : 306 ms P-R-T Axes : 262 051 075 degrees QTc Int : 503 ms Atrial flutter. with 2:[address] \T\ T wave abnormality, consider inferior ischemia ST \T\ T wave abnormality, consider anterolateral ischemia Abnormal ECG When compared with ECG of 04-FEB-2017 02:24, Atrial flutter. has replaced Sinus rhythm. Vent. rate has increased BY [address] now depressed in Anterolateral leads T wave inversion now evident in Inferior leads T wave inversion now evident in Anterolateral leads Unconfirmed Result
[2017-02-10 05:42] LABS: AGAP 19; BUN 18 mg/dL (8-22); CALCIUM 8.7 mg/dL (8.8-10.2); CHLORIDE 95 mmol/L (98-107); COSMO 285; SODIUM 140 mmol/L (136-145); TCO2 26 mmol/L (25-35)
[2017-02-10 05:56] LABS: BANDS 16 % (0-1); LYMPHS 2 % (21-51)
[2017-02-10 06:36] LABS: ALLEN TEST YES; BE 2.9 mmoll (-3.0-3.0); BLOOD TYPE ARTERIAL; DRAW SITE R RADIAL; O2(CT) 16.7 mL/dL (15.0-23.0); PCO2(98.6) 47 mmHg (35-45); PO2(98.6) 254 mmHg (60-100); SAMPLE BLOOD; SAO2 100.1 % (95.0-100.0); THB 11.7 g/dL (11.5-17.4); pH(98.6) 7.39 (7.35-7.45)
[2017-02-10 06:37] LABS: MODALITY BI PAP
[2017-02-10] MEDS: NICODERM PATCH TD SCH (09:57)
[2017-02-10] MEDS: LOVENOX SUBQ SCH (09:57)
--- NOTE | 2017-02-10 11:04 | Diag Imaging Result Doc PS360 ---
EXAM: CT THORAX W/O CONTRAST - 02/10/2017 HISTORY: pna, sob TECHNIQUE: Without contrast per request of the referring provider. Dose reduction protocol. COMPARISON: CT pulmonary angiogram of 02/02/2017. Dose reduction protocol. FINDINGS: There are emphysematous changes. There are multiple pulmonary nodular lesions similar to the previous exam. There is bilateral hilar and mediastinal adenopathy similar to the previous exam, although the adenopathy was seen in more detail the previous exam dated the administered intravenous contrast. The above findings are consistent with extensive metastatic disease in the thorax. There is a small amount of pericardial fluid which is increased mildly. There is been development of consolidation at the inferior left lower lobe. This is consistent with pneumonia. There is no other consolidation identified. There is no substantial pleural effusion or pneumothorax identified. IMPRESSION: Emphysematous changes. Extensive metastatic disease similar to the prior exam. Small amount of pericardial fluid which is increased mildly. Development of left lower lobe consolidation, consistent with pneumonia. Electronically signed by Marshall Simpson 02/10/2017 11:02 AM
[2017-02-10] MEDS: CARDIZEM CD PO SCH (11:32)
[2017-02-10] MEDS: SOLU-MEDROL IV SCH ×2 (12:06→23:50)
[2017-02-10] MEDS ORDERED: VANCOMYCIN IV PER PHARMACY MISC SCH (14:00)
--- NOTE | 2017-02-10 14:49 | CONSULTATION ---
DATE OF CONSULTATION: 02/10/2017 CONCLUSION: The patient is admitted to the hospital with left lower lobe consolidation consistent with pneumonia. After talking to the patient's daughter, it seems to me that the patient most likely aspirates which could be the cause of her pneumonia. In addition, the patient's CT scan shows extensive nodular lesions in the lungs compatible with metastatic lung cancer which the patient has. RECOMMENDATIONS: I agree with treating the patient with cefepime. I have discontinued Levaquin and have started the patient on vancomycin. DISCUSSION: The patient is unable provide a history. The history was taken from the patient's daughter. The daughter tells me that for 6 months the patient has had dyspnea. In the last day or 2, she sounds like she went into respiratory failure. She passed out and daughter said she turned blue. The patient's CT scan of the chest shows a left lower lobe consolidation and extensive nodules in the lungs compatible with metastatic cancer. There is also a pericardial effusion. This CT also shows that the patient has emphysema. [place] [address], hemoglobin 11.7, and platelet count 315,000. Blood gases show a pH of 7.39, a PO2 of 254 and a pCO2 of 47. The creatinine is 0.7. GFR is greater than 60. Liver function studies are normal. 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 Previous hospitalizations and Operations: She has had 6 labor and deliveries and 2 miscarriages. She has been admitted for her lung cancer and problems with COPD. She also had placement of a right Port-A-Cath but the daughter tells me that the Port-A-Cath does not work. Medical Diseases: Positive for diabetes mellitus, emphysema and lung cancer which appears to be metastatic. The patient aspirates. Infectious Disease History: Positive for pneumonia and negative for UTI. Cigarette smoking. FAMILY HISTORY: Positive for cancer, diabetes mellitus and hypertension. [place]IAL HISTORY[place] . She lives with her daughter. She has a dog as a pet. She is allergic to eggs. The patient smokes cigarettes. MEDICATIONS: The patient's home medication include the following. Patient is on Protonix, oxycodone, Percocet, nicotine patch, gabapentin, diltiazem, Norvasc, albuterol inhaler and Tylenol. PHYSICAL EXAMINATION: Vital Signs: Temperature is 97.3 degrees, pulse 56, respirations 20, blood pressure 89/59. Patient weighs 97 pounds. She is 5 feet 3 inches tall. General: This is a cachectic appearing elderly female who is lethargic. She is on a BiPAP mask. HEENT: Ears, nose, and Throat: No drainage was noted from the nose or ears. She did not respond to verbal stimuli. Neck: No meningismus. Thorax: Increased AP diameter of the chest. Lungs: Clear. There were few rales heard in the left lower lobe. The right lung was clear. Cardiac: Heart rate was regular. Abdomen: Soft and nontender. Neurologic: As mentioned above, the patient is very lethargic. She did not respond to verbal stimuli. There was no tremor. Integument: No rash noted. Thank you for the consult. cc: Adiel Rausch MD
--- NOTE | 2017-02-10 15:10 | CONSULTATION ---
DATE OF CONSULTATION: 02/10/2017 REFERRING PHYSICIAN: Dr. Valerie Frazier. CHIEF COMPLAINT: Evaluation for respiratory failure compensating with BiPAP in a patient with metastatic lung cancer, pneumonia, and COPD. 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 So far, she is full code and the family is contemplating hospice care, but so far, she is a full code. PAST MEDICAL HISTORY: Stage IV lung cancer with metastasis to esophagus, COPD, hypoxia, on home oxygen, recent admission, skin cancer, hypertension, chemotherapy and radiation therapy in the past. PAST SURGICAL HISTORY: Port-A-Cath placement, EGD. ALLERGIES: Possibly to eggs. SOCIAL HISTORY: Recent ex-smoker. Living with her daughter. Her daughter was present at the bedside during evaluation. FAMILY HISTORY: Colon cancer, hypertension. REVIEW OF SYSTEMS: As detailed in history of presenting illness, otherwise noncontributory. MEDICATIONS: Medications in the hospital were reviewed and they include Tylenol, nebulizer treatments, cefepime, Lovenox, Ativan 0.5 mg IV q.4 hours p.r.n., Solu-Medrol, vancomycin, morphine, nicotine patches, Protonix, IV fluid. PHYSICAL EXAMINATION: General: The patient is asleep on BiPAP, comfortable. Family is at the bedside. Vital Signs: Noted. Head and Neck: Trachea midline. Chest: Reduced air entry. A few crackles at the sides. Cardiac: S1 and S2. Abdomen: Nontender. Limbs: No pedal edema. Neurological: Asleep, lethargic. LABORATORIES AND INVESTIGATIONS: Chest CT scan reviewed, showing metastatic disease and pneumonia in the left lower lobe with consolidation. ABG, CBC, and CMP reviewed, with pH of 7.39, pCO2 of 47, pO2 of 254 on BiPAP 18 and 8, with 80% oxygen dropped to 60%. Sodium 140, potassium 4, creatinine 0.7, CO2 of 26. WBC 27,000, hematocrit 26.47, hemoglobin 11.4, platelets 215,000. ASSESSMENT: A 76-year-old female with past medical history of chronic obstructive pulmonary disease, metastatic lung cancer, pneumonia, respiratory failure, compensating with BiPAP. PLAN: Continue antibiotics, BiPAP. Discussions with Hospice and Palliative Care undergone with family. So far, she is a full code. Continue BiPAP. Follow blood gases. Thank you for the courtesy of this consultation. cc: Savannah Ontiveros MD
[2017-02-10] MEDS ORDERED: VANCOMYCIN 1.3 GM in NS 250 ML IV ONE (17:00)
[2017-02-11] MEDS: DUONEB (A & A) INH SCH ×2 (03:13→10:50)
[2017-02-11] MEDS: NS 1,000 ML IV SCH ×2 (03:22→16:34)
[2017-02-11 03:31] LABS: ALLEN TEST YES; BE 0.3 mmoll (-3.0-3.0); BLOOD TYPE ARTERIAL; DRAW SITE R RADIAL; METHB 1.2 % (0.0-1.5); O2(CT) 14.2 mL/dL (15.0-23.0); PCO2(98.6) 42 mmHg (35-45); PO2(98.6) 211 mmHg (60-100); SAMPLE BLOOD; SAO2 99.8 % (95.0-100.0); SRATE 4 BPM; pH(98.6) 7.39 (7.35-7.45)
[2017-02-11 03:32] LABS: MODALITY BI PAP
[2017-02-11 05:45] LABS: URINE CULTURE NEEDED? NO; URINE MICRO REVIEW NEEDED? NO; URINE SOURCE CATH
[2017-02-11 05:48] LABS: BILIRUBIN URINE NEGATIVE (NEGATIVE); BLOOD URINE NEGATIVE (NEGATIVE); COLOR YELLOW; GLUCOSE URINE NEGATIVE (NEGATIVE); LEUKOCYTES URINE NEGATIVE (NEGATIVE); NITRITE URINE NEGATIVE (NEGATIVE); PROTEIN URINE 30 mg/dL (NEGATIVE); TURBIDITY URINE CLEAR (CLEAR); UR EPITHELIAL CELLS <10 /HPF (<10); URINE BACTERIA NEGATIVE /HPF; URINE RBC <10 /HPF (<10); URINE WBC <10 /HPF (<10); UROBILINOGEN URINE NORMAL (NORMAL)
--- NOTE | 2017-02-11 07:28 | PROGRESS NOTE ---
DATE: 02/11/2017 PRESENT ILLNESS: The patient has a left lower lobe pneumonia. Also, unfortunately, the patient has multiple nodular lesions in the lungs, which most likely are due to metastatic lung cancer. MEDICATIONS: This is day 1 of treatment with vancomycin and cefepime. PHYSICAL EXAMINATION: Vital Signs: Temperature is 97.6 degrees, pulse 93, respirations 20, blood pressure 134/63. General: The patient is lethargic. She looks chronically ill. Lungs: Clear to auscultation. Cardiovascular: Heart rate was regular. Abdomen: Soft and nontender. Neurologic: Patient is lethargic. She did not follow request to move her extremities. LAB AND X-RAY: There is no new radiographic study. The patient's blood gases show a pH of 7.39, a PO2 of 211 and a pCO2 of 42. There is no CBC or BMP for today. ASSESSMENT AND PLAN: Patient has pneumonia. Unfortunately, she also has lung cancer with metastatic disease to the lung. My plan is to continue with antibiotics, namely cefepime and vancomycin. COMORBIDITIES: Include diabetes mellitus, emphysema, lung cancer, which is metastatic and possible aspirate of food. cc: Adiel Rausch MD
[2017-02-11] MEDS: LOVENOX SUBQ SCH ×2 (07:54→09:03)
[2017-02-11] MEDS: CARDIZEM CD PO SCH ×2 (07:54→09:03)
[2017-02-11] MEDS: NICODERM PATCH TD SCH ×2 (07:55→09:03)
[2017-02-11] MEDS ORDERED: CARDIZEM 100 MG/NS 100 MG/100 ML IVPB IV SCH (07:55)
--- NOTE | 2017-02-11 08:51 | EKG Report ---
Test Performed on : 02/11/2017 07:46:54 AM Test Reason : A-Fib with RVR Blood Pressure : / mmHG Vent. Rate : 108 BPM Atrial Rate : 108 BPM P-R Int : 150 ms QRS Dur : 070 ms QT Int : 348 ms P-R-T Axes : 056 020 068 degrees QTc Int : 466 ms Sinus tachycardia. with premature atrial complexes. and premature ventricular complexes. or fusion c omplexes Nonspecific ST and T wave abnormality Abnormal ECG When compared with ECG of 09-FEB-2017 19:45, Sinus rhythm. has replaced Atrial flutter. Vent. rate has decreased BY [address] less depressed in Anterior leads T wave inversion no longer evident in Inferior leads T wave inversion no longer evident in Anterolateral leads Confirmed by Demetrius PEREZ, Giovanny Guevara ([id number]) on 02/11/2017 9:15:02 AM
[2017-02-11] MEDS: MAXIPIME 1 GM/NS 1 GM/50 ML IVPB IV SCH (12:54)
[2017-02-11] MEDS: SOLU-MEDROL IV SCH (12:55)
--- NOTE | 2017-02-11 13:20 | CONSULTATION ---
DATE OF CONSULTATION: 02/10/2017 REFERRING PHYSICIAN: Dr. Wise. REASON FOR REFERRAL: Acute respiratory failure, metastatic head neck cancer, known to our service. HISTORY OF PRESENT ILLNESS: Jackie Martinez is a very pleasant, 76-year-old woman known to the service of Dr. Carolin Russell for a history of metastatic head and neck cancer. She is currently receiving palliative radiation therapy. She was admitted to [facility] after being in acute respiratory distress. Her daughter states that she ran out of oxygen and became short of breath and unresponsive. She was taken to [facility] who then transferred her over to [place]. Hematology/Oncology service was placed on consult to provide further workup and treatment options. PAST MEDICAL HISTORY: 1. Metastatic head and neck cancer. 2. Hypertension. 3. COPD. 4. Skin cancer. PAST SURGICAL HISTORY: Port-A-Cath placement. FAMILY HISTORY: Positive for colon cancer in her brother. ALLERGIES: Eggs. MEDICATION: As per medication sheet. REVIEW OF SYSTEMS: As per HPI. Otherwise, a 12-point review of systems was negative. PHYSICAL EXAMINATION: General: The patient appears to be in no acute distress. She is resting and on a BiPAP. Vital Signs: Blood pressure 104/58, pulse 76, respirations 16, temperature 96.2 degrees Fahrenheit, O2 saturation 99% on a BiPAP. HEENT: Head normocephalic, atraumatic. Mucosa is pale and moist. Pupils reactive to light. Oropharynx clear. Neck: Supple. No lymphadenopathy or thyromegaly. Cardiovascular: S1, S2. Regular rate and rhythm. No murmurs noted. Respiratory: Bilateral rhonchi noted and no wheezing noted. Abdomen: Soft, nontender, nondistended. Positive for bowel sounds. Extremities: No evidence of edema, DVT or cyanosis. Skin: No rashes or lesions noted. Neurological: The patient is resting at this time and appears to be in no acute distress. ASSESSMENT AND PLAN: 1. Metastatic head neck cancer. 2. Acute respiratory failure. 3. Leukocytosis. PLAN: 1. The patient is currently undergoing palliative radiation therapy. Further therapy has been placed on hold until the acute event resolves. 2. This is secondary to COPD, metastatic cancer, and new findings of pneumonia. We agree with O2 support and respiratory medications as per Dr. Ontiveros. The patient's family states that she does wish to be intubated if necessary. Further discussion as per Dr. Martinez and Dr. Russell. 3. This is likely secondary to pneumonia seen on CT scan. We agree with antibiotic coverage. Thank you for this consult and allowing us to take part in the care of this patient. cc: Jesús Martinez MD
[2017-02-11 14:36] LABS: HEMATOCRIT 33.9 % (37.0-47.0); HEMOGLOBIN 10.9 g/dL (12.0-16.0); IMM GRAN# 0.08 X1000 (0.0-0.04); IMM GRAN% 0.3 % (0.0-0.5); LYMPH# 0.31 X1000 (1.2-3.4); LYMPH% 1.3 % (20.5-51.1); MANUAL DIFF NEEDED? NO; MCH 27.5 PG (27-31); MCHC 32.2 g/dL (33-37); MCV 85.4 FL (81-99); MONO# 1.25 X1000 (0.11-0.59); MONO% 5.3 % (1.7-9.3); MPV 9.3 FL (7.4-10.4); NEUT% 93.1 % (42.2-75.2); PLT 321 X1000 (130-400); RBC 3.97 XMIL (4.2-5.4)
[2017-02-11] MEDS: LOPRESSOR PO SCH ×2 (14:59→20:48)
[2017-02-11 15:04] LABS: AGAP 12; BUN 19 mg/dL (8-22); CALCIUM 8.3 mg/dL (8.8-10.2); CHLORIDE 99 mmol/L (98-107); COSMO 283; POTASSIUM 3.6 mmol/L (3.5-5.1); SODIUM 137 mmol/L (136-145); TCO2 26 mmol/L (25-35)
[2017-02-11 15:11] LABS: FREE T4 1.05 ng/dL (0.93-1.70)
--- NOTE | 2017-02-11 21:34 | CONSULTATION ---
DATE OF CONSULTATION: 02/11/2017 CHIEF COMPLAINT: Shortness of breath, irregular heartbeat. REASON FOR CONSULTATION: Atrial fibrillation. HISTORY: Ms. Martinez is a 76-year-old female who presented on February 09 with symptoms of increasing dyspnea, cough. Initial x-ray evaluation shows pneumonia in the left lower lobe. In addition, she has a known case of metastatic disease in the lungs from head and neck cancer. The patient was placed on oxygen and antibiotics. She has clinically improved, however, she has developed runs of atrial fibrillation with rapid response. Of note, at the time of initial presentation, her EKG showed what appears to be atrial flutter with a 2:1 conduction delay. It also demonstrated diffuse ST-T abnormality. Subsequent EKG done at 7:46 in the morning after a run of atrial fibrillation reveals sinus tachycardia with PACs, normal ST-T segment. The patient denies having any chest pain, denies abdominal pain, denies nausea, vomiting, diaphoresis, etc. She is comfortable doing a crossword puzzle at this time. I am seeing her at 12:15 noontime. PAST MEDICAL HISTORY: As stated, the patient has been diagnosed with cancer of the hypopharynx. She developed metastasis to the lungs. She has been treated by Dr. Russell for the [facility]. Apparently in April of last year she requested to stop treatments. Subsequently she has developed skin cancer in the nose and that is being treated presently with radiation therapy. The patient does have history of hypertension. PAST SURGICAL HISTORY: Positive for implantation of a Port-A-Cath. She does not have any other major history. SOCIAL HISTORY: She is a . She has had a total of 8 children, 6 are living. 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 She also used to be a heavy smoker. She has not smoked for the past 1 year. FAMILY HISTORY: Her family history is positive for hypertension, colon cancer. HOME MEDICATIONS: Her home medications at this time included: 1. Protonix. 2. Nicotine patch. 3. Gabapentin. 4. Diltiazem. 5. Albuterol. 6. Acetaminophen. ALLERGIES: Possibly to egg. REVIEW OF SYSTEMS: The patient normally follows with Dr. Domonique Duncan who is her family doctor in [place]. She has complained of shortness of breath and also claudication. No other major complaints. No previous history of heart disease. Of note, the CT scan of the chest done recently on February 10 showed a small pericardial effusion, also calcification of the coronary arteries, left main, LAD, circumflex. She also has extensive calcification of the aorta, almost a porcelain pattern in the arch. PHYSICAL EXAMINATION: Vital signs: Blood pressure today is 129/65, temperature 97.8, pulse 91, respirations 24. General: She is awake, alert, in no distress. HEENT: Unremarkable. Chest: Diminished breath sounds. No rales or wheezes. Cardiac: Heart sounds are distant but regular and rhythmic. I do not heart any definite gallop or murmur. Occasional extrasystole. Abdomen: Nondistended, nontender. No hepatomegaly. Extremities: Showed decreased pulses. No peripheral edema. Neurologic: She follows commands, moves four extremities. LABORATORY DATA: Blood work today showed a blood gas with pH 7.39, pO2 of 211, pCO2 of 42. Yesterday her sodium was 140, potassium 4.0, BUN 18, creatinine 0.7. IMPRESSION: 1. Patient who developed paroxysmal atrial flutter and paroxysmal atrial fibrillation in conjunction with left lower lobe pneumonia on top of preexisting metastatic disease to the lung. She does have a small pericardial effusion which is not hemodynamically significant. 2. Metastatic head and neck cancer to both lungs. 3. Respiratory failure secondary to pneumonia. 4. Left lower lobe pneumonia. 5. History of hypertension, on Cardizem. RECOMMENDATIONS: At this point in time, I would suggest to continue IV Cardizem as you are doing. Because the patient is at this time not wheezing, I would suggest to try a low dose of beta- octaviano and also minimize the beta-2 agonist drugs. Other than that, I believe that her atrial fibrillation and atrial flutter were probably triggered by the acute inflammatory process. This should improve as the inflammatory process recedes. We will follow her and we will make further recommendations down the road. cc: Andrés Weiss MD
[2017-02-12] MEDS: SOLU-MEDROL IV SCH ×3 (00:24→23:12)
[2017-02-12] MEDS: SODIUM CHLORIDE 0.9% INJ SCH (00:24)
[2017-02-12] MEDS: PROTONIX IV SCH ×2 (00:25→23:12)
[2017-02-12] MEDS: MAXIPIME 1 GM/NS 1 GM/50 ML IVPB IV SCH ×3 (00:25→23:12)
[2017-02-12] MEDS: LOPRESSOR PO SCH ×4 (01:30→20:32)
[2017-02-12] MEDS: NS 1,000 ML IV SCH ×2 (04:10→19:35)
[2017-02-12 04:47] LABS: BE 6.6 mmoll (-3.0-3.0); BLOOD TYPE ARTERIAL; DRAW SITE R BRACHIAL; METHB 0.8 % (0.0-1.5); O2(CT) 14.5 mL/dL (15.0-23.0); PCO2(98.6) 48 mmHg (35-45); PO2(98.6) 58 mmHg (60-100); SAMPLE BLOOD; SAO2 93.8 % (95.0-100.0); THB 11.3 g/dL (11.5-17.4); pH(98.6) 7.43 (7.35-7.45)
[2017-02-12 04:48] LABS: MODALITY CANNULA
[2017-02-12] MEDS ORDERED: VANCOMYCIN 1 GM/NS 1 GM/250 ML IVPB IV SCH (05:00)
[2017-02-12 06:01] LABS: HEMATOCRIT 36.7 % (37.0-47.0); HEMOGLOBIN 11.5 g/dL (12.0-16.0); IMM GRAN# 0.09 X1000 (0.0-0.04); IMM GRAN% 0.4 % (0.0-0.5); LYMPH# 0.38 X1000 (1.2-3.4); LYMPH% 1.9 % (20.5-51.1); MANUAL DIFF NEEDED? NO; MCH 27.1 PG (27-31); MCHC 31.3 g/dL (33-37); MCV 86.4 FL (81-99); MONO# 0.81 X1000 (0.11-0.59); MONO% 3.9 % (1.7-9.3); MPV 9.1 FL (7.4-10.4); NEUT% 93.8 % (42.2-75.2); PLT 314 X1000 (130-400); RBC 4.25 XMIL (4.2-5.4)
[2017-02-12 06:18] LABS: AGAP 10; BUN 13 mg/dL (8-22); CALCIUM 8.6 mg/dL (8.8-10.2); CHLORIDE 103 mmol/L (98-107); COSMO 287; POTASSIUM 3.4 mmol/L (3.5-5.1); SODIUM 143 mmol/L (136-145); TCO2 30 mmol/L (25-35)
[2017-02-12] MEDS: POTASSIUM CHLORIDE 20 MEQ/SWI 20 MEQ/100 ML IVPB IV SCH ×2 (07:11→10:03)
[2017-02-12] MEDS: DUONEB (A & A) INH PRN (07:38)
[2017-02-12] MEDS: CARDIZEM CD PO SCH (08:26)
[2017-02-12] MEDS: NICODERM PATCH TD SCH (08:27)
[2017-02-12] MEDS: LOVENOX SUBQ SCH (08:27)
--- NOTE | 2017-02-12 14:01 | PROGRESS NOTE ---
DATE: 02/12/2017 SUBJECTIVE: The patient is sitting up in bed, reading a book. She is currently on nasal cannula and doing well. OBJECTIVE: Vital Signs: Temperature 97 degrees, blood pressure 144/71, heart rate 83, respirations 12, O2 saturations 100% on 4 L nasal cannula. General: This is an elderly female, lying in bed, in no acute distress. Head: Normocephalic atraumatic. Heart: S1, S2. Normal. Regular rate and rhythm. Lungs: Equal air entry bilaterally. No crackles. No rales. Abdomen: Positive bowel sounds. Soft, nontender, nondistended. Extremities: No edema. No cyanosis. No calf tenderness. Neurological: Patient is alert and oriented x3. LABS: White blood cell count 20, hemoglobin 11, hematocrit 36, platelets 314, 000. Sodium 143, potassium 3.4, chloride 103, CO2 30, BUN 13, creatinine 0.5, glucose 126. ASSESSMENT AND PLAN: 1. Pneumonia. Slowly improving. The patient is now on nasal cannula. Continue on IV antibiotic therapy plus bronchodilator therapy. 2. Metastatic head and neck cancer. Management as per the oncologist. 3. Leukocytosis. Slowly improving. Continue on IV antibiotic therapy. 4. Hypokalemia. Replace the patient's potassium. 5. Arrhythmia. The patient is in NSR. 6. Will consult physical therapy. cc: Valerie Frazier MD MTDD
--- NOTE | 2017-02-12 16:52 | PROGRESS NOTE ---
DATE: 02/12/2017 SUBJECTIVE: Patient continues without palpitations or angina. She converted back to sinus rhythm. Respiratory status seems to be improving as well. OBJECTIVE: Vital Signs: Blood pressure 147/69, heart rate 77 and regular with ECG monitor showing sinus rhythm. Occasional premature atrial complex. There is no significant jugular venous distention. Chest: Auscultation the chest reveals somewhat diminished breath sounds diffusely. No rales or wheezes can be appreciated. Cardiac: Exam reveals a regular rate and rhythm with somewhat distant heart sounds. No murmur or gallop could be appreciated. There is no evidence of peripheral edema. IMPRESSION: 1. Atrial arrhythmias probably provoked by left lower lobe pneumonia. The patient has converted back to sinus rhythm. 2. Metastatic head and neck cancer to both lungs. 3. Pneumonia. 4. Hypertension. RECOMMENDATIONS: Discontinue Cardizem and continue to monitor rhythm. cc: Harshad Velasquez MD
[2017-02-12] MEDS: CALMOSEPTINE OINTMENT TOP PRN ×2 (20:32→23:16)
[2017-02-13] MEDS: LOPRESSOR PO SCH ×4 (01:35→20:29)
[2017-02-13 04:54] LABS: ALLEN TEST YES; BE 11.5 mmoll (-3.0-3.0); BLOOD TYPE ARTERIAL; DRAW SITE R RADIAL; METHB 1.3 % (0.0-1.5); PCO2(98.6) 49 mmHg (35-45); PO2(98.6) 73 mmHg (60-100); SAMPLE BLOOD; SAO2 97.6 % (95.0-100.0); THB 11.2 g/dL (11.5-17.4); pH(98.6) 7.48 (7.35-7.45)
[2017-02-13 04:56] LABS: MODALITY CANNULA
[2017-02-13 05:42] LABS: BASO% 0.1 % (0.0-0.8); HEMATOCRIT 35.2 % (37.0-47.0); HEMOGLOBIN 11.4 g/dL (12.0-16.0); IMM GRAN# 0.07 X1000 (0.0-0.04); IMM GRAN% 0.4 % (0.0-0.5); LYMPH# 0.53 X1000 (1.2-3.4); LYMPH% 2.8 % (20.5-51.1); MANUAL DIFF NEEDED? YES; MCH 27.7 PG (27-31); MCHC 32.4 g/dL (33-37); MCV 85.4 FL (81-99); MONO# 0.72 X1000 (0.11-0.59); MONO% 3.8 % (1.7-9.3); MPV 9.1 FL (7.4-10.4); NEUT% 92.9 % (42.2-75.2); PLT 277 X1000 (130-400); RBC 4.12 XMIL (4.2-5.4)
[2017-02-13 06:19] LABS: AGAP 11; BUN 12 mg/dL (8-22); CALCIUM 8.5 mg/dL (8.8-10.2); CHLORIDE 99 mmol/L (98-107); COSMO 287; POTASSIUM 3.4 mmol/L (3.5-5.1); SODIUM 143 mmol/L (136-145); TCO2 33 mmol/L (25-35)
[2017-02-13] MEDS ORDERED: KLOR-CON PO ONE (06:53)
[2017-02-13 07:20] LABS: BANDS 1 % (0-1); LYMPHS 7 % (21-51); MONO 1 % (1-9)
[2017-02-13] MEDS: CARDIZEM CD PO SCH (08:51)
[2017-02-13] MEDS: NICODERM PATCH TD SCH (08:51)
[2017-02-13] MEDS: LOVENOX SUBQ SCH (08:51)
[2017-02-13] MEDS: SOLU-MEDROL IV SCH ×2 (12:05→23:55)
[2017-02-13] MEDS: MAXIPIME 1 GM/NS 1 GM/50 ML IVPB IV SCH ×2 (12:05→23:55)
--- NOTE | 2017-02-13 16:23 | PROGRESS NOTE ---
DATE: 02/13/2017 SUBJECTIVE: The patient is resting comfortably in bed. She has no complaints. No acute events noted overnight. OBJECTIVE: Vital Signs: Temperature 97 degrees, blood pressure 155/68, heart rate 72, respirations 18, O2 saturations 96% on 4 L cannula. General: This is an elderly female, lying in bed, in no acute distress. Head: Normocephalic, atraumatic. Heart: S1, S2. Normal. Regular rate and rhythm. Lungs: Equal air entry bilaterally. No crackles. No wheezing. Abdomen: Positive bowel sounds. Soft, nontender, nondistended. Extremities: No edema. No cyanosis. Neurologic: The patient is alert and oriented x3. LAB: White blood cell count 19, hemoglobin 11, hematocrit 35, platelets 277,000. Sodium 143, potassium 3.4, chloride 99, CO2 33, BUN 12, creatinine 0.4, glucose 139. ASSESSMENT AND PLAN: 1. Pneumonia. Continue on IV antibiotic therapy plus bronchodilator therapy and supplemental oxygen. 2. Metastatic head and neck cancer. Aware. 3. Leukocytosis. Continue on IV antibiotic therapy. 4. Hypokalemia. Will replace the patient's potassium. 5. Arrhythmia. Resolved. 6. Deep vein thrombosis prophylaxis. Continue on Lovenox. 7. Continue with physical therapy. cc: Valerie Frazier MD
[2017-02-13] MEDS: VANCOMYCIN 1 GM/NS 1 GM/250 ML IVPB IV SCH (17:17)
[2017-02-13] MEDS: DUONEB (A & A) INH PRN (22:22)
[2017-02-13] MEDS: PROTONIX IV SCH (23:55)
[2017-02-14] MEDS: LOPRESSOR PO SCH ×4 (02:02→20:25)
[2017-02-14] MEDS: CALMOSEPTINE OINTMENT TOP PRN ×3 (02:02→14:44)
[2017-02-14] MEDS: VANCOMYCIN 1 GM/NS 1 GM/250 ML IVPB IV SCH ×2 (04:24→16:35)
[2017-02-14 04:58] LABS: ALLEN TEST YES; BE 16.5 mmoll (-3.0-3.0); BLOOD TYPE ARTERIAL; DRAW SITE R RADIAL; METHB 0.6 % (0.0-1.5); O2(CT) 18.2 mL/dL (15.0-23.0); PO2(98.6) 55 mmHg (60-100); SAMPLE BLOOD; SAO2 93.7 % (95.0-100.0); THB 14.2 g/dL (11.5-17.4); pH(98.6) 7.51 (7.35-7.45)
[2017-02-14 05:01] LABS: MODALITY CANNULA; PCO2(98.6) 53 mmHg (35-45)
[2017-02-14 05:47] LABS: BASO% 0.1 % (0.0-0.8); HEMATOCRIT 35.4 % (37.0-47.0); HEMOGLOBIN 11.2 g/dL (12.0-16.0); IMM GRAN# 0.09 X1000 (0.0-0.04); IMM GRAN% 0.5 % (0.0-0.5); LYMPH% 3.6 % (20.5-51.1); MANUAL DIFF NEEDED? YES; MCHC 31.6 g/dL (33-37); MCV 85.3 FL (81-99); MONO% 4.6 % (1.7-9.3); MPV 9.1 FL (7.4-10.4); NEUT% 91.2 % (42.2-75.2); PLT 265 X1000 (130-400); RBC 4.15 XMIL (4.2-5.4)
--- NOTE | 2017-02-14 06:40 | PROGRESS NOTE ---
DATE: 02/11/2017 SUBJECTIVE: The patient is sitting up in bed. She is more awake and alert today. Her family is present at the bedside. She ate a little bit of breakfast this morning. OBJECTIVE:: Vital Signs: Temperature 97 degrees, blood pressure 129/65, heart rate 91, respirations 24, O2 saturation 94% on Venti Mask. General: This is an elderly female, lying in bed, in no acute distress. Head: Normocephalic atraumatic. Heart: S1, S2 normal. Irregularly irregular rhythm. Lungs: Equal air entry bilaterally. No crackles. No rales. Abdomen: Positive bowel sounds. Soft, nontender, nondistended. Extremities: No edema. No cyanosis. No calf tenderness. Neurologic: The patient is alert and oriented x3. LABORATORY DATA: None. ASSESSMENT AND PLAN: 1. Acute hypoxemic respiratory failure secondary to pneumonia and lung cancer. Continue on the current IV antibiotic regimen, bronchodilator therapy, and supplemental oxygen. 2. Lung cancer. This is being followed by Dr. Jesús Martinez. 3. Atrial fibrillation. The patient has been started back on a Cardizem drip. 4. Tobacco dependence. Continue on the NicoDerm patch. 5. Leukocytosis. Continue on the current IV antibiotic regimen. 6. Deep vein thrombosis prophylaxis. Continue on Lovenox. cc: Valerie Frazier MD
--- NOTE | 2017-02-14 06:43 | PROGRESS NOTE ---
DATE: 02/14/2017 PRESENT ILLNESS: The patient has left lower lobe pneumonia. MEDICATIONS: This is day 3 of treatment with a combination of vancomycin and cefepime. PHYSICAL EXAMINATION: Vital Signs: Temperature is 97.9 degrees, pulse 73, respirations 24, blood pressure 149/69. Generally: This is a chronically ill-appearing, elderly female. She is in no acute distress. She does cough quite frequently, however. Lungs: Scattered rhonchi bilaterally. As mentioned above, the patient does cough but does not bring up much in the way of sputum. Cardiovascular: Heart rate at times was regular, at other times it seemed to be irregular. Abdomen: Soft and nontender. Thorax: Patient has a Port-A-Cath present on the right side. The site is not swollen or erythematous. LAB AND X-RAY: There is no new x-ray. [place] [address], hemoglobin 11.2, and platelet count 265,000. Creatinine 0.4. GFR is greater than 60. Blood gases show a pH of 7.51, a PO2 of 55, and a pCO2 of 53. Sputum is growing normal martni and yeast. ASSESSMENT AND PLAN: Patient has a right lung pneumonia. My plan is to continue with her current antibiotics. Since the findings did not show up on plain x-ray but only on CT, in a day or 2, I will repeat her CT scan. The patient does have leukocytosis; however, she is on high dose of steroids and I think this could account for her leukocytosis or at least a good deal of it. COMORBIDITIES: 1. Head neck cancer with metastatic disease in the lungs. 2. Diabetes mellitus. 3. Emphysema. cc: Adiel Rausch MD [facility]
[2017-02-14] MEDS ORDERED: MAGNESIUM SULFATE 2 GM/S.W.I. 2 GM/50 ML IVPB IV ONE (07:00)
[2017-02-14 07:23] LABS: AGAP 10; BUN 14 mg/dL (8-22); CALCIUM 8.6 mg/dL (8.8-10.2); CHLORIDE 93 mmol/L (98-107); COSMO 280; MAGNESIUM 1.5 mg/dL (1.5-2.7); SODIUM 139 mmol/L (136-145); TCO2 36 mmol/L (25-35)
[2017-02-14] MEDS: CARDIZEM CD PO SCH (08:25)
[2017-02-14] MEDS: NEUTRA-PHOS PO SCH ×4 (08:29→20:25)
[2017-02-14] MEDS: NICODERM PATCH TD SCH (08:29)
[2017-02-14] MEDS: LOVENOX SUBQ SCH (08:29)
[2017-02-14 08:39] LABS: BANDS 2 % (0-1); LYMPHS 2 % (21-51); MONO 4 % (1-9)
--- NOTE | 2017-02-14 09:16 | PROGRESS NOTE ---
DATE: 02/14/2017 CHIEF COMPLAINT: Irregular heartbeat and shortness of breath. SUBJECTIVE: Ms. Martinez is feeling much better. She is breathing more comfortably. Telemetry for the past 48 hours indicates that she has maintained sinus rhythm. She has some PACs. She is not having any pain. She is very comfortable. OBJECTIVE: Blood pressure is 149/68, temperature 97.9, pulse 72, respirations 18. She is awake, alert and oriented, no distress. HEENT: Unremarkable. Chest shows diminished breath sounds, especially at the left base. Heart sounds are regular and rhythmic. No convincing gallop, murmur or rub is noted. Abdomen is nontender. Extremities showed no obvious edema. Neurologic: Follows commands. Moves all 4 extremities. IMPRESSION: 1. The patient developed paroxysmal atrial fibrillation in the midst of pneumonia. Initially the rhythm on presentation was atrial flutter, then she had atrial fibrillation. Now she has reverted to sinus rhythm. 2. 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 3. Pneumonia, respiratory failure. 4. Left lower lobe pneumonia. 5. Tobacco user. 6. History of hypertension. RECOMMENDATIONS: From a cardiology viewpoint, I would probably keep her on present medicines including low dose metoprolol and the oral dose of diltiazem. She may be transferred to a medical floor to continue her convalescence and be discharged home at the discretion of the primary service. From a cardiology viewpoint, I do not believe this patient warrants usp management with anticoagulants nor any specific approach for this atrial flutter/fibrillation which I believe was provoked by the left lower lobe pneumonia. I will be happy to arrange for a followup visit if deemed necessary. However, at this point in time, I do not believe that there is an urgent matter. Thank you again for the opportunity to participate in her evaluation. cc: Andrés Weiss MD
[2017-02-14] MEDS: SOLU-MEDROL IV SCH (11:50)
[2017-02-14] MEDS: MAXIPIME 1 GM/NS 1 GM/50 ML IVPB IV SCH (12:53)
--- NOTE | 2017-02-14 13:39 | PROGRESS NOTE ---
DATE: 02/14/2017 SUBJECTIVE: The patient is sitting up in bed. She has no complaints. No acute events noted overnight. OBJECTIVE: Vital Signs: Temperature 97 degrees, blood pressure 138/60, heart rate 65, respirations 16, and O2 saturations 100% on 3 liters nasal cannula. General: This is an elderly chronically ill-appearing female, lying in bed, in no acute distress. HEENT: Head normocephalic and atraumatic. Heart: S1 and S2 normal. Regular rate and rhythm. Lungs: Clear to auscultation. No crackles. No rales. Abdomen: Positive bowel sounds. Soft, nontender, nondistended. Extremities: No edema. No cyanosis. No calf tenderness. Neurologic: The patient is alert and oriented x3. LABORATORY DATA: White blood cell count 19, hemoglobin 11, hematocrit 35, platelets 265,000. Sodium 139, potassium 4, chloride 93, CO2 of 36, BUN 14, creatinine 0.4, glucose 145, magnesium 1.5, potassium 1.7. ASSESSMENT AND PLAN: 1. Pneumonia, slowly improving. Continue on the current antibiotic regimen. 2. Metastatic and neck cancer, aware. 3. Hypomagnesemia. We will replace the patient's magnesium. 4. Hypophosphatemia. We will replace the patient's phosphorus. 5. Leukocytosis. We will continue to monitor. Continue on intravenous antibiotic therapy. 6. Prophylaxis. Continue on Lovenox. 7. Continue with physical therapy. cc: Valerie Frazier MD
[2017-02-15] MEDS: PROTONIX IV SCH (02:03)
[2017-02-15] MEDS: SOLU-MEDROL IV SCH ×2 (02:03→15:30)
[2017-02-15] MEDS: MAXIPIME 1 GM/NS 1 GM/50 ML IVPB IV SCH ×2 (02:03→15:31)
[2017-02-15] MEDS: DUONEB (A & A) INH PRN (02:03)
[2017-02-15] MEDS: LOPRESSOR PO SCH ×4 (02:03→21:24)
[2017-02-15] MEDS ORDERED: IMODIUM PO ONE (02:47)
[2017-02-15] MEDS: VANCOMYCIN 1 GM/NS 1 GM/250 ML IVPB IV SCH ×3 (02:58→16:34)
[2017-02-15 05:05] LABS: BE 13.9 mmoll (-3.0-3.0); BLOOD TYPE ARTERIAL; DRAW SITE R BRACHIAL; MODALITY CANNULA; PCO2(98.6) 46 mmHg (35-45); PO2(98.6) 61 mmHg (60-100); SAMPLE BLOOD; THB < 3.0 g/dL (11.5-17.4); pH(98.6) 7.53 (7.35-7.45)
[2017-02-15 05:28] LABS: HEMATOCRIT 35.5 % (37.0-47.0); HEMOGLOBIN 11.5 g/dL (12.0-16.0); IMM GRAN# 0.14 X1000 (0.0-0.04); IMM GRAN% 0.6 % (0.0-0.5); LYMPH# 0.38 X1000 (1.2-3.4); LYMPH% 1.6 % (20.5-51.1); MANUAL DIFF NEEDED? NO; MCH 27.5 PG (27-31); MCHC 32.4 g/dL (33-37); MCV 84.9 FL (81-99); MONO# 1.31 X1000 (0.11-0.59); MONO% 5.4 % (1.7-9.3); NEUT% 92.4 % (42.2-75.2); PLT 247 X1000 (130-400); RBC 4.18 XMIL (4.2-5.4)
[2017-02-15 05:56] LABS: AGAP 9; BUN 16 mg/dL (8-22); CALCIUM 8.2 mg/dL (8.8-10.2); CHLORIDE 92 mmol/L (98-107); COSMO 274; MAGNESIUM 1.9 mg/dL (1.5-2.7); POTASSIUM 3.8 mmol/L (3.5-5.1); SODIUM 135 mmol/L (136-145); TCO2 34 mmol/L (25-35)
--- NOTE | 2017-02-15 07:36 | Diag Imaging Result Doc PS360 ---
EXAM: CHEST-PORTABLE INDICATION: pneumonia TECHNIQUE: One view COMPARISON: 02/09/2017 FINDINGS: Right chest port is stable. Multiple bilateral lung nodules are again noted. No new consolidations are appreciated. The lungs are essentially stable given slight differences in positioning and inspiration. Cardiac silhouette is stable. IMPRESSION: Essentially stable chest. Electronically signed by Fede Roblero 02/15/2017 7:34 AM
[2017-02-15 08:06] LABS: ALLEN TEST NO
[2017-02-15] MEDS ORDERED: IMODIUM PO PRN (08:24)
[2017-02-15] MEDS: NICODERM PATCH TD SCH (08:32)
[2017-02-15] MEDS: LOVENOX SUBQ SCH (08:32)
[2017-02-15] MEDS: CARDIZEM CD PO SCH (08:33)
[2017-02-15] MEDS: NEUTRA-PHOS PO SCH ×2 (08:33→08:38)
--- NOTE | 2017-02-15 08:58 | PROGRESS NOTE ---
DATE: 02/15/2017 PRESENT ILLNESS: The patient has a left lower lobe pneumonia. MEDICATIONS: The patient is being treated with a combination of vancomycin and cefepime. This is day 4 of treatment with both agents. PHYSICAL EXAMINATION: Vital Signs: Temperature is 97.4 degrees, pulse 67, respirations 18, blood pressure 138/60. General: The patient generally looks to be chronically ill. She is in no acute distress. Lungs: Scattered rhonchi bilaterally. Cardiovascular: Heart rate was irregular. Abdomen: Soft and nontender. LAB AND X-RAY: The white count today is increased to 24,350, hemoglobin is 11.5 and platelet count is 247,000. Creatinine 0.4. GFR is greater than 60. Sputum is growing normal martin. Blood gases show a pH of 7.53, a PO2 of 61, a pCO2 of 46. The patient has had a chest x-ray, but the result is pending. ASSESSMENT AND PLAN: Patient has started having diarrhea today and, given the fact that her white count is rising, I am concerned that the diarrhea may be due to Clostridium difficile. My plan now is to continue both cefepime and vancomycin. I am ordering a stool to be sent for Clostridium difficile toxin, and empirically I am going to start the patient on p.o. vancomycin pending the results of the stool for Clostridium difficile toxin. The chest x-ray result also is pending and, if it shows there is spread of the pneumonia, then possibly another antimicrobial agent will be needed. COMORBIDITIES: The patient's comorbidities include head and neck cancer with metastatic disease in the lungs, diabetes mellitus, and chronic obstructive pulmonary disease. cc: Adiel Rausch MD
--- NOTE | 2017-02-15 09:35 | PROGRESS NOTE ---
DATE: 02/15/2017 HISTORY: A 76-year-old with a history of stage IV lung cancer with metastasis to the esophagus and chest wall. She sees Dr. Duncan as outpatient. She comes into the emergency room with shortness of breath. She is also followed by Dr. Carolin Russell. She has COPD. Long-time smoker since she was 15. She was still smoking until she became progressively more and more short of breath. Her last admission at our service was on 02/02/2017. She was treated for pneumonia. Today, she started having shortness of breath and went to [facility] emergency room. Increased her home O2 to 2-4 L at home. Fifty minutes after she arrived at home, she had a panic attack related to feeling very short of breath. She called EMS. She was noted to have an oxygen saturation of 70%. Brought to the emergency room. The patient has had poor appetite, has been losing weight, and becoming more and more progressively short of breath. I believe the CT was noted lung cancer had increased inside the lungs. The chest x-ray was obtained today. Showed multiple nodules. No clear infiltrate was noted on the chest x-ray but noncontrast CT was pending at the time. She did have elevated white blood cell count of 30,000. The patient was admitted. She states that she is feeling better. Feels like she is breathing a little better. Chest x-ray from this morning, essentially stable chest. Right chest is stable. Multiple bilateral lung nodules are noted. No new consolidations are appreciated. Lungs are essentially stable. Slight differences in position and inspiration. Cardiac silhouette is stable. PHYSICAL EXAMINATION: Vital Signs: Temperature 98 degrees, pulse 65, respirations 26, blood pressure 133/58. Respiratory: She is moving air in all lung de guzman. She has scattered rhonchi throughout both lung de guzman. Cardiovascular Examination: Regular rhythm and rate without murmur or S3. Abdomen: Soft. Skin: Is warm and dry. Blood pressure 133/58, pulse 65, respirations 78. Extremities: No pedal edema. ASSESSMENT AND PLAN: 1. Pneumonia, slowly improving. Continue current antibiotic regimen. 2. Metastatic head and neck cancer. Aware. 3. Hypomagnesemia. This has been replenished. 4. Hypophosphatemia. Also has been replenished. 5. Leukocytosis. Continue intravenous antibiotic treatment. 6. Prophylaxis. Continue deep venous thrombosis prophylaxis on Lovenox. 7. Dr. Rausch is following. Dr. Martinez is following. The patient has left lower lobe pneumonia. This is the 4th of combination vancomycin and cefepime. Dr. Weiss is also following her. Patient developed paroxysmal atrial fibrillation in the midst of pneumonia. Initially rhythm on presentation was atrial flutter and then had atrial fibrillation. She has converted back to sinus rhythm. Dr. Martinez is also following I think for Dr. Carolin Russell. 8. History of metastatic head and neck cancer. Currently receiving palliative radiation therapy. cc: Arnold Choi MD
[2017-02-15] MEDS: VANCOMYCIN ORAL SOLN PO SCH ×3 (10:48→21:25)
--- NOTE | 2017-02-15 11:48 | PROGRESS NOTE ---
DATE: 02/14/2017 SUBJECTIVE: Ms. Martinez reports she feels well today. Has no new complaints. OBJECTIVE: Vital Signs: Temperature 97.9 degrees, heart rate 72, respirations 18, blood pressure 149/68, O2 saturations 96% on 3 L nasal cannula. LABORATORY: White blood cells 19.53, hemoglobin 11.2, hematocrit 35.4, platelets 265,000. Sodium 139, potassium 4.0, chloride 96, CO2 36, BUN 14, creatinine 0.4, glucose 280. PHYSICAL EXAM: Cardiovascular: S1, S2 heard. No murmurs, gallops, rubs appreciated. Respiratory: Patient has coarse breath sounds bilaterally. She has scattered rhonchi with wheezing. Gastrointestinal: Abdomen is soft and nontender. Positive bowel sounds. Musculoskeletal: Trace bilateral extremity edema. ASSESSMENT AND PLAN: 1. Metastatic head and neck cancer. Patient has previously completed some chemotherapy but had to discontinue early due to side effects. She has completed a couple rounds of palliative radiation. The patient has recently requested systemic therapy. We will have the patient follow up as an outpatient when she is released to discuss possibly Keytruda or some other systemic therapy. No treatment while she is currently inpatient. 2. COPD with exacerbation. Continue current management with oxygen, antibiotics and steroids. 3. Electrolyte deficiencies. Appears replete. 4. Leukocytosis. Continue IV antibiotics. ID is on board. Dictated by JAMEEL Blevins for Carolin Russell MD cc: Carolin Russell MD
[2017-02-16] MEDS: MAXIPIME 1 GM/NS 1 GM/50 ML IVPB IV SCH ×2 (01:45→13:26)
[2017-02-16] MEDS: VANCOMYCIN ORAL SOLN PO SCH ×4 (01:45→20:28)
[2017-02-16] MEDS: LOPRESSOR PO SCH ×4 (01:45→20:28)
[2017-02-16] MEDS: SOLU-MEDROL IV SCH ×2 (01:45→13:26)
[2017-02-16] MEDS: PROTONIX IV SCH (01:45)
[2017-02-16] MEDS: VANCOMYCIN 1 GM/NS 1 GM/250 ML IVPB IV SCH ×2 (03:54→16:43)
[2017-02-16 05:35] LABS: AGAP 9; BUN 16 mg/dL (8-22); CALCIUM 8.1 mg/dL (8.8-10.2); CHLORIDE 95 mmol/L (98-107); COSMO 280; POTASSIUM 3.8 mmol/L (3.5-5.1); SODIUM 138 mmol/L (136-145); TCO2 34 mmol/L (25-35)
--- NOTE | 2017-02-16 07:05 | PROGRESS NOTE ---
DATE: 02/16/2017 PRESENT ILLNESS: The patient is being treated for pneumonia. MEDICATIONS: This is day #5 of treatment with a combination of vancomycin and cefepime. PHYSICAL EXAMINATION: Vital Signs: Temperature is 98.1 degrees, pulse 61, respirations 20, blood pressure 144/63. General: This is an ill-appearing, elderly female. She is in no acute distress. Lungs: Clear to auscultation. Cardiovascular: Irregular heart rate. Chest: The patient has a Port-A-Cath in place. Abdomen: Soft and nontender. LAB AND X-RAY STUDIES: Chest x-ray shows bilateral pulmonary nodules and left lung pneumonia. Sputum is growing normal martin. Stool for Clostridium difficile toxin was negative. Creatinine 0.5 with a GFR of greater than 60. The patient's CBC shows a white count of 24,350, hemoglobin 11.5, and platelet count 247,000. Blood gases show a pH of 7.53, a PO2 of 61, a pCO2 of 46. ASSESSMENT AND PLAN: Patient has pneumonia. My plan will be to continue her current antimicrobial agents. Since the patient's Clostridium difficile toxin is negative, I plan to discontinue the p.o. vancomycin. COMORBIDITIES: Include head and neck cancer which has metastasized to the lungs, diabetes mellitus, and chronic pulmonary obstructive lung disease. I have ordered a CBC and BMP for tomorrow. cc: Adiel Rausch MD
[2017-02-16] MEDS: LOVENOX SUBQ SCH (08:00)
[2017-02-16] MEDS: NICODERM PATCH TD SCH (08:01)
[2017-02-16] MEDS: CARDIZEM CD PO SCH (08:01)
--- NOTE | 2017-02-16 09:42 | PROGRESS NOTE ---
DATE: 02/16/2017 SUBJECTIVE: Ms. Martinez is breathing better. Feels better. Still does not feel ready to go home. Remains afebrile. OBJECTIVE: Vital signs: Temperature 97.9 degrees, pulse 78, respirations 18, blood pressure 166/63. Lungs: Clear anterolateral Cardiovascular: Regular rhythm and rate without murmur or S3. Abdomen: Soft. Skin: Warm and dry. Intake and output: Urine output 1500 mL. LAB: CBC from yesterday, white count is still elevated at 24,350. Hematocrit is stable at 35. Chemistries: Sodium 138, potassium 3.8, chloride 95, BUN 16, creatinine 0.5. Calcium a little bit low at 8.1. ASSESSMENT AND PLAN: 1. This is day 5 of treatment combination with vancomycin and cefepime. Continue current antimicrobial agents. The patient's Clostridium difficile was negative and so will discontinue the p.o. vancomycin per Dr. Rausch. 2. Metastatic head and neck cancer. Previously completed some chemotherapy but had to discontinue due to side effects. Completed a couple rounds of palliative radiation. The patient recently requested systemic therapy, so the patient will follow up as an outpatient. Discussed possibly using Keytruda or some other systemic therapy. 3. Chronic obstructive pulmonary disease with exacerbation, has improved. Breathing status improved. Underlying pneumonia. 4. Electrolyte deficiencies have been repleted. Calcium is still a little low. 5. Leukocytosis. Continue IV antibiotic. REVIEW OF HER ORDERS: On Imodium 4 mg p.o. which she takes as needed, vancomycin oral 250 mg p.o. q.[address] Rausch is going to stop that. Vancomycin 1 g IV q.12, Protonix 40 mg IV q.24 hours, nicotine patch 14 mg daily, Lopressor 12.5 mg q.6, hours methylprednisone 40 mg IV q.12, cefepime 1 g IV q.12, Ativan 0.5 mg q.4 hours, Lovenox 20 mg subcutaneous daily, Cardizem CD 180 mg daily. cc: Arnold Choi MD
[2017-02-17] MEDS: VANCOMYCIN ORAL SOLN PO SCH (01:13)
[2017-02-17] MEDS: MAXIPIME 1 GM/NS 1 GM/50 ML IVPB IV SCH ×2 (01:13→13:37)
[2017-02-17] MEDS: SOLU-MEDROL IV SCH ×2 (01:13→13:37)
[2017-02-17] MEDS: PROTONIX IV SCH (01:13)
[2017-02-17] MEDS: LOPRESSOR PO SCH ×4 (01:14→21:30)
[2017-02-17] MEDS: VANCOMYCIN 1 GM/NS 1 GM/250 ML IVPB IV SCH ×2 (03:21→17:25)
[2017-02-17 05:29] LABS: HEMATOCRIT 34.3 % (37.0-47.0); HEMOGLOBIN 11.2 g/dL (12.0-16.0); IMM GRAN# 0.11 X1000 (0.0-0.04); IMM GRAN% 0.5 % (0.0-0.5); LYMPH# 0.36 X1000 (1.2-3.4); LYMPH% 1.7 % (20.5-51.1); MANUAL DIFF NEEDED? NO; MCH 27.7 PG (27-31); MCHC 32.7 g/dL (33-37); MCV 84.7 FL (81-99); MONO% 4.1 % (1.7-9.3); MPV 9.4 FL (7.4-10.4); NEUT% 93.7 % (42.2-75.2); PLT 217 X1000 (130-400); RBC 4.05 XMIL (4.2-5.4)
[2017-02-17 05:35] LABS: AGAP 10; BUN 14 mg/dL (8-22); CALCIUM 8.2 mg/dL (8.8-10.2); CHLORIDE 94 mmol/L (98-107); COSMO 278; POTASSIUM 3.4 mmol/L (3.5-5.1); SODIUM 136 mmol/L (136-145); TCO2 32 mmol/L (25-35)
--- NOTE | 2017-02-17 07:56 | PROGRESS NOTE ---
DATE: 02/17/2017 PRESENT ILLNESS: The patient has pneumonia. MEDICATIONS: The patient had been treated for the past 7 days with a combination of vancomycin and cefepime. PHYSICAL EXAMINATION: Vital signs: Temperature is 97.5 degrees, pulse 60, respirations 14, blood pressure 147/62. General: This is a chronically ill-appearing, elderly female. She coughed frequently during the exam but did not bring up much in the way of sputum. Chest: The patient has a Port-A-Cath in place on the right side. The site is not erythematous and there is no surrounding erythema. LAB AND X-RAY: The patient's CBC for today shows a white count of 21,700, hemoglobin 11.2, and platelet count 217,000. Creatinine 0.4. GFR is greater than 60. ASSESSMENT AND PLAN: The patient has pneumonia. My plan will be to get her home on antibiotics. I would think of vancomycin and cefepime would be a good combination. That is what she is on here in the hospital and is tolerating it well. The patient's Clostridium difficile toxin is negative. I need to discontinue the p.o. vancomycin. Comorbidities include head and neck cancer which is metastatic in the lungs, diabetes mellitus, and chronic obstructive pulmonary disease. cc: Adiel Rausch MD
[2017-02-17] MEDS: CARDIZEM CD PO SCH (08:27)
[2017-02-17] MEDS: NICODERM PATCH TD SCH (08:27)
[2017-02-17] MEDS: LOVENOX SUBQ SCH (08:29)
--- NOTE | 2017-02-17 09:03 | PROGRESS NOTE ---
DATE: 02/17/2017 SUBJECTIVE: Ms. Martinez wants go home. She is breathing better. She asked why she has to have a PICC line. OBJECTIVE: Vital Signs: Temp 97.7 degrees, pulse 60, respirations 18, blood pressure 155/77. HEENT: The pupils are equal, round. CVP less than 6 cm. Lungs: Clear in all lung de guzman. Cardiovascular exam: Regular rhythm and rate without murmur or S3. Abdomen: Soft. Skin: Warm and dry. : Urine output over 800 mL. LABS: Reviewed from yesterday. White count 21,700, hematocrit was 34, platelet count 217,000. Sodium 136, potassium 3.4, chloride 94, bicarbonate 32, BUN 14, creatinine 0.4. ASSESSMENT AND PLAN: 1. Patient has pneumonia, treated for the last 7 days with a combination of vancomycin and cefepime. We will get her home antibiotics in the form of PICC line, and Dr. Rausch is going to give her vancomycin and cefepime, which she is tolerating well. 2. The patient's Clostridium difficile toxin was negative, so discontinued the oral vancomycin. 3. Metastatic head and neck cancer. Previously started some chemotherapy, but had to discontinue because of side effects. She has completed some rounds of palliative radiation and recently requested systemic therapy. Followed by oncology. 4. Chronic chronic obstructive pulmonary disease exacerbation. Breathing is better. 5. Leukocytosis. Hope to get a PICC line and maybe get her home for antibiotics. She would benefit from home health I believe as well. Review of orders: I do not see any change at this point. cc: Arnold Choi MD
[2017-02-18] MEDS: LOPRESSOR PO SCH ×2 (02:07→09:34)
[2017-02-18] MEDS: SOLU-MEDROL IV SCH (02:08)
[2017-02-18] MEDS: SODIUM CHLORIDE 0.9% INJ SCH (02:08)
[2017-02-18] MEDS: PROTONIX IV SCH (02:08)
[2017-02-18] MEDS: MAXIPIME 1 GM/NS 1 GM/50 ML IVPB IV SCH ×3 (02:08→15:57)
[2017-02-18] MEDS: VANCOMYCIN 1 GM/NS 1 GM/250 ML IVPB IV SCH ×2 (04:32→12:20)
[2017-02-18 06:13] LABS: INR 1.03; PROTIME 10.8 Seconds (9.2-11.7); PTT 26.2 Seconds (22.0-36.0)
--- NOTE | 2017-02-18 07:15 | PROGRESS NOTE ---
DATE: 02/18/2017 PRESENT ILLNESS: The patient is being treated currently for pneumonia. MEDICATION: This is day 8 of treatment with vancomycin and cefepime. PHYSICAL EXAMINATION: Vital Signs: Temperature is 97.6 degrees, pulse 72, respirations 22, blood pressure 137/50. Generally, this is a somewhat ill-appearing, elderly female. She is coughing less than she did earlier, and she still has not been able to bring up much in the way of sputum. Chest: The patient has a Port-A-Cath in place on the right side. Lungs clear to auscultation. Abdomen: Soft and nontender. Extremities: No edema. Neurologic: The patient is alert. LABORATORY DATA AND X-RAY: There is no new x-ray for today, and there also are no new laboratory studies for today. ASSESSMENT AND PLAN: The patient has pneumonia. I have put in a consult to get a PICC placed, and I have also put in a consult for [facility] to supply the patient's antibiotics at home for another 2 weeks, at which time I will see the patient in the office and, if everything looks good, we will stop the antibiotics and take out the PICC. The patient's comorbidities include head and neck cancer which is metastatic in the lungs, diabetes mellitus, and COPD. cc: Adiel Rausch MD MTDLina
[2017-02-18 07:32] LABS: INR 1.04
[2017-02-18] MEDS ORDERED: NS 250 ML ONE (08:30)
[2017-02-18 09:26] VITALS: BP 148/60
--- NOTE | 2017-02-18 09:31 | DISCHARGE SUMMARY ---
ADMISSION DATE: 02/09/2017 DISCHARGE DATE: 02/18/2017 REASON FOR ADMISSION: She presented with shortness of breath on 02/09/2017, followed by Dr. Domonique Duncan, Dr. Savannah Ontiveros. HISTORY AND HOSPITAL COURSE: A 76-year-old with history of stage IV lung cancer with metastasis esophageal and chest wall. Sees Dr. Duncan as an outpatient. Came into the emergency room with shortness of breath. She has COPD, long-term smoker since age 15. She was still smoking until she became progressively more and more short of breath. Her last admission to our service was 02/02/2017. Treated for pneumonia. Today, she started having shortness of breath. Went to [facility]. Increased her home O2 from 2-4 L. Sent her home. About 15 minutes after she arrived at home, she had a panic attack related to feeling very short of breath. Called EMS. Noted to have oxygen saturation about 70%, was brought to the emergency room. The patient has had a poor appetite. Has been losing weight. Becoming more progressively short of breath. I believe CT had noted that the lung cancer had increased inside her lungs. Chest x-ray was obtained on the day of admission, showed multiple nodules. No clear infiltrate was noted on the chest x-ray, but noncontrast CT was performed on 02/10/2017 and showed emphysematous changes, extensive metastatic disease since her prior exam. Small amount of pericardial fluid which had increased mildly. Development of left lower lobe consolidation consistent with pneumonia. So admitted. Given IV antibiotics and bronchodilators, supplemental O2. Dr. Rausch was consulted for Infectious Disease. Dr. Ontiveros also involved and she showed improvement. She wanted to go home. Dr. Rausch felt she needed, this was the 8th day of vancomycin, cefepime, wanted to continue this a little longer, maybe a couple more weeks. So PICC line will be placed in preparation to get her home for home antibiotics, vancomycin, cefepime. DISCHARGE MEDICATIONS: Will be DuoNeb treatments. Norvasc 2.5 mg a day, Cardizem CD 180 mg daily. Gabapentin 300 mg daily, NicoDerm patch 21 mg daily, oxycodone or Percocet, which she can have 1 t.i.d. p.r.n., and Protonix 40 mg a day. Encourage p.o. intake. We will follow up with her IV antibiotics using cefepime and vancomycin. Get home health involved as well. cc: Arnold Choi MD
[2017-02-18] MEDS: CARDIZEM CD PO SCH (09:34)
[2017-02-18] MEDS: LOVENOX SUBQ SCH (09:34)
[2017-02-18] MEDS: NICODERM PATCH TD SCH (09:34)
== END 2017-02-18 15:50 | disposition home health service (06) ==
LOC: ED 19:33 → 3S 23:57 → SUATTDRO 23:57
PROVIDERS: ATTEND Emergency Medicine

== ENCOUNTER 2017-02-24 18:40 | Inpatient (IN) ==
[2017-02-24 19:15] LABS: BASO% 0.1 % (0.0-0.8); EOS# 0.06 X1000 (0.0-0.7); EOS% 0.4 % (0.0-10.0); HEMATOCRIT 30.8 % (37.0-47.0); HEMOGLOBIN 9.8 g/dL (12.0-16.0); IMM GRAN# 0.05 X1000 (0.0-0.04); IMM GRAN% 0.3 % (0.0-0.5); LYMPH# 0.25 X1000 (1.2-3.4); LYMPH% 1.6 % (20.5-51.1); MANUAL DIFF NEEDED? NO; MCH 27.4 PG (27-31); MCHC 31.8 g/dL (33-37); MONO# 0.74 X1000 (0.11-0.59); MONO% 4.8 % (1.7-9.3); MPV 9.4 FL (7.4-10.4); NEUT% 92.8 % (42.2-75.2); PLT 208 X1000 (130-400); RBC 3.58 XMIL (4.2-5.4)
[2017-02-24 19:17] LABS: ALLEN TEST YES; BE 7.3 mmoll (-3.0-3.0); BLOOD TYPE ARTERIAL; DRAW SITE R BRACHIAL; METHB 0.6 % (0.0-1.5); O2(CT) 13.2 mL/dL (15.0-23.0); PCO2(98.6) 45 mmHg (35-45); PO2(98.6) 65 mmHg (60-100); SAMPLE BLOOD; SAO2 96.9 % (95.0-100.0); THB 9.9 g/dL (11.5-17.4); pH(98.6) 7.46 (7.35-7.45)
[2017-02-24 19:18] LABS: MODALITY CANNULA
[2017-02-24] MEDS ORDERED: ROCEPHIN 1 GM/NS 1 GM/50 ML IVPB IV ONE (19:32)
[2017-02-24 19:36] LABS: AGAP 14; ALBUMIN 2.3 g/dL (3.5-5.0); ALKALINE PHOSPHATASE 78 U/L (32-104); BUN 17 mg/dL (8-22); CALCIUM 7.8 mg/dL (8.8-10.2); CHLORIDE 88 mmol/L (98-107); COSMO 268; GOT 12 U/L (10-30); GPT 10 U/L (10-36); POTASSIUM 3.3 mmol/L (3.5-5.1); SODIUM 133 mmol/L (136-145); TCO2 31 mmol/L (25-35); TOTAL BILIRUBIN 0.33 mg/dL (0.20-1.00); TOTAL PROTEIN 5.2 g/dL (6.3-8.3)
--- NOTE | 2017-02-24 21:27 | Diag Imaging Result Doc PS360 ---
EXAM: ANGIOGRAM/PULMONARY ARTERIES INDICATION: dyspnea with Stage 4 Lung Cancer TECHNIQUE: Dose reduction protocol was used. COMPARISON: CT chest without contrast dated 02/10/2017 FINDINGS: The contrast bolus is very poor. This markedly diminishes the sensitivity for detecting small pulmonary emboli. No large central pulmonary embolism is appreciated. Advanced metastatic disease throughout both lungs is similar to the previous study. Severe mediastinal and hilar lymphadenopathy is similar to the recent previous study. Like the previous study, there is encasement of the mainstem bronchi by the naresh mass causing marked stenosis. There is mucous plugging involving several branches of both bronchi. This has worsened worsened on the left during the interval and there is complete obstruction of several branches of the left mainstem bronchus leading to the left lower lobe. Obstructed branches of the right mainstem bronchus are similar to the previous study. There has been development of a right pleural effusion and increase in size of the left pleural effusion. There is bibasilar atelectasis and infiltrate at the lung bases. Review of the base of the neck reveals a partially imaged soft tissue mass on the left just superior to the true vocal cords that is causing severe stenosis of the aerodigestive tract. There is a moderate-sized pericardial effusion that is slightly larger than the previous study. Review of the upper abdomen reveals a distended colon and distended loops of bowel similar to the previous study. IMPRESSION: 1.Very limited pulmonary artery contrast bolus, which greatly limits the sensitivity for detecting pulmonary emboli. No definite large central emboli are identified. 2.Numerous lung masses similar to the previous study. 3.Large mediastinal and hilar confluent naresh mass encasing the mainstem bronchi causing stenosis. 4.Extensive mucus plugging and obstruction of branches of both mainstem bronchi with interval worsening on the left as compared to the previous study. 5.Bibasilar pleural effusions and bibasilar atelectasis with superimposed infiltrate at the lung bases. 6.Soft tissue mass involving the aerodigestive tract on the left just superior to the vocal cords causing severe stenosis. 7.Distended stomach and loops of small bowel as described. Electronically signed by Fede Roblero 02/24/2017 9:24 PM
--- NOTE | 2017-02-24 22:11 | PROVIDER DOCUMENTATION ---
This chart was entered by Dianne Mackey Scribe, acting as scribe for Melissa Fowler Jr, MD. HPI-Abdominal Pain/GI Problem - General Chief Complaint: General Adult Stated Complaint: Bloody Emsis Time Seen by Provider: 02/24/17 18:49 Source: EMS Allergies/Adverse Reactions: Patient Allergies Allergy/AdvReac Type Severity Reaction Status Date / Time Egg Derived Allergy ANAPHYLAXIS Verified 02/09/17 19:55 Home Medications: Home Medication List Medication Instructions Recorded Confirmed Last Taken Type Gabapentin 300 mg PO DAILY 01/05/17 02/09/17 02/08/17 20:00 History Oxycodone HCl/Acetaminophen 1 each PO TID PRN PRN 01/05/17 02/09/17 02/09/17 18: 00 History [Percocet 10-325 mg Tablet] Albuterol 2.5MG/Ipratrop 0.5MG 3 ml INH RTQ4H #30 neb 01/07/17 02/09/17 18:00 Rx [Duoneb (A & A)] Diltiazem C.d. [Cardizem Cd] 180 mg PO DAILY #30 capsule 01/07/17 02/09/1702/09 07:00 Rx Acetaminophen [Tylenol] 650 mg PO Q4-6H PRN PRN #0 tablet 02/05/17 02/09/17 Unknown Rx Nicotine Patch [Nicoderm Patch] 21 mg TD DAILY #14 patch.[email or web address] 02/05/17 02/09/17 Unknown Rx Pantoprazole [Protonix] 40 mg PO DAILY@0700 02/09/17 02/09/17 02/09/17 07:00 History Acetaminophen [Tylenol] 650 mg PO Q4-6H PRN PRN #0 tablet 02/18/17 Unknown Rx Diltiazem C.d. [Cardizem Cd] 180 mg PO DAILY #30 capsule 02/18/17 Unknown Rx - History of Present Illness-ABD Nature of Presenting Problems: 77 Y/O F presents to ED with Vomiting.Pt is on home health with stage 4 lung cancer. Pt hasn't had a BM in 2 days and Vomited coffee brown emesis x1. Pt initial B/P was 86/45 by EMS and O2 on 3L on room air 85. Pt was hypertensive and lethargic to weak to stand according to EMS pt Normal baseline she is able to stand. Pt is alert although lethargic. Pt hasn't been taking treatments, recently released with pneumonia Abdominal Pain Onset Location: reports: generalized abdomen Pain Radiation: reports: no radiation Severity in ED: reports: severe Onset/Duration: reports: this evening Timing: reports: still present Activities at Onset: reports: none Associated Symptoms: reports: fatigue, shortness of breath, vomiting, weakness. denies: fever/chills Last BM: 2 days ago Dark Stools Present?: reports: none noticed Rectal Bleeding: reports: none # of Vomiting Episodes: 1 Emesis Description: reports: coffee grounds Review of Systems - Adult - REVIEW OF SYSTEMS - ADULT Constitutional: denies: chills, fever Eyes: reports: no symptoms reported Ears, Nose, Mouth & Throat: reports: no symptoms reported Cardiovascular: reports: no symptoms reported Respiratory: reports: shortness of breath. denies: cough Gastrointestinal: reports: constipation, vomiting. denies: nausea Genitourinary: reports: no symptoms reported Musculoskeletal: reports: no symptoms reported Integumentary: reports: no symptoms reported Neurological: reports: no symptoms reported Psychiatric: reports: no symptoms reported Endocrine: reports: no symptoms reported Hematologic/Lymphatic: reports: no symptoms reported Allergic/Immunologic: reports: no symptoms reported All Other Systems: Reviewed and Negative Past History - Adult - PAST MEDICAL HISTORY-ADULT Review of Records: reports: Old Records Reviewed, Nursing Assessment Review, Medications Reviewed, Social history reviewed & non-contributory. Major Childhood Illnesses: reports: denies history Cardiovascular: reports: denies history Respiratory: reports: denies history Gastrointestinal: reports: denies history Obstetrical/Gynecological: reports: denies history Genitourinary: reports: denies history Musculoskeletal: reports: denies history Neurological: reports: denies history Endocrine/Immune: reports: denies history Other Conditions: reports: denies history - IMMUNIZATION STATUS Childhood Immunizations: See Nurse Assessment Flu Vaccine: See Nurse Assessment - FAMILY HISTORY Family History: reviewed, not pertinent Physical Exam-General - CONSTITUTIONAL General Appearance: alert, severe distress, thin, lethargic - HEAD, EARS, NOSE, MOUTH & THROAT HENMT: normal ENT inspection, TMs normal - NECK Neck: full range of motion, supple - RESPIRATORY Respiratory: rales, wheezing, other (Port in right anterior chest) - GASTROINTESTINAL (ABDOMEN) Abdominal Exam: distended, rigid. negative: soft (firm) - MUSCULOSKELETAL Extremity: other (PICC line in left arm) Progress - PLAN OF CARE/RESULTS Progress/Plan/Lab Results: Vital Signs - 8 hr 02/24/17 18:46 02/24/17 20:52 Temperature 97.5 F L Pulse Rate 95 H 82 Respiratory Rate 34 H 23 Blood Pressure 100/59 113/57 O2 Sat by Pulse Oximetry 98 95 Laboratory Results - last 24 hr 02/24/17 02/24/17 02/24/17 19:00 19:00 19:01 WBC 15.33 H RBC 3.58 L Hgb 9.8 L Hct 30.8 L MCV 86.0 MCH 27.4 MCHC 31.8 L RDW Std Deviation 16.0 H Plt Count 208 MPV 9.4 Immature Gran % (Auto) 0.3 Neut % (Auto) 92.8 H Lymph % (Auto) 1.6 L [place] % (Auto) 4.8 Eos % (Auto) 0.4 Baso % (Auto) 0.1 Immature Gran # (Auto) 0.05 H Neut # (Auto) 14.21 H Lymph # (Auto) 0.25 L [place] # (Auto) 0.74 H Eos # (Auto) 0.06 Baso # (Auto) 0.02 Specimen Type ARTERIAL Sample Site R BRACHIAL pH 7.46 H pCO2 45 pO2 65 HCO3 30.6 H Base Excess 7.3 H Oxyhemoglobin 94.5 L ABG O2 Sat (Calculated) 13.2 L ABG O2 Saturation 96.9 ABG Carboxyhemoglobin 1.90 ABG Methemoglobin 0.6 Arnold Test YES A-a O2 Difference 135.0 Total Hemoglobin 9.9 L Lactate 1.80 Liter Flow 4.0 Blood Gas Modality CANNULA FiO2 % 36.0 Sodium 133 L Potassium 3.3 L Chloride 88 L Carbon Dioxide 31 Anion Gap 14 BUN 17 Creatinine 0.6 Estimated GFR/1.73 m2 > 60 BUN/Creatinine Ratio 28 Glucose 91 Calculated Osmolality 268 Calcium 7.8 L Total Bilirubin 0.33 AST 12 ALT 10 Alkaline Phosphatase 78 Total Protein 5.2 L Albumin 2.3 L Globulin 2.9 Albumin/Globulin Ratio 0.8 Plasma Lactate 02/24/17 21:15 WBC RBC Hgb Hct MCV MCH MCHC RDW Std Deviation Plt Count MPV Immature Gran % (Auto) Neut % (Auto) Lymph % (Auto) [place] % (Auto) Eos % (Auto) Baso % (Auto) Immature Gran # (Auto) Neut # (Auto) Lymph # (Auto) [place] # (Auto) Eos # (Auto) Baso # (Auto) Specimen Type Sample Site pH pCO2 pO2 HCO3 Base Excess Oxyhemoglobin ABG O2 Sat (Calculated) ABG O2 Saturation ABG Carboxyhemoglobin ABG Methemoglobin Arnold Test A-a O2 Difference Total Hemoglobin Lactate Liter Flow Blood Gas Modality FiO2 % Sodium Potassium Chloride Carbon Dioxide Anion Gap BUN Creatinine Estimated GFR/1.73 m2 BUN/Creatinine Ratio Glucose Calculated Osmolality Calcium Total Bilirubin AST ALT Alkaline Phosphatase Total Protein Albumin Globulin Albumin/Globulin Ratio Plasma Lactate 1.5 Orders Category Date Time Status CTA [ANGIOGRAM/PULMONARY ARTERIES] [CT] Stat Exams 02/24/17 20:27 Completed ABG [RESP] Routine Lab 02/24/17 19:01 Completed BLOOD CULTURE [BLDCUL] Stat Lab 02/24/17 19:15 Results CBC WITH ELECTRONIC DIFF [HEME] Stat Lab 02/24/17 19:00 Completed COMPREHENSIVE METABOLIC PANEL [CHEM] Stat Lab 02/24/17 19:00 Completed LACTATE, PLASMA [CHEM] Stat Lab 02/24/17 21:15 Completed CefTRIAXONE 1 GM/NS [Rocephin 1 gm/Ns] Med 02/24/17 19:32 Discontinued 1 gm in 50 ml IV NOW Result Diagrams: 02/24/17 19:00 02/24/17 19:00 - CT/MRI 1 CT Study: Angiogram Impression: Abnormal (1.Very limited pulmonary artery contrast bolus, which greatly limits the sensitivity for detecting pulmonary emboli. No definite large central emboli are identified. 2. Numerous lung masses similar to the previous study 3. Large mediastinal and hilar confluent naresh mass encasing the mainstem bronchi causing stenosis 4. Extensive mucus plugging and obstructionof branches of both mainstem bronchi with interval worsening on the left as compared to the previous study 5.Bibasilar pleural effusions and bibasilar atelectasis with superimposed infiltrate at the lung bases. 6. Soft tissue mass involving the aerodigestive tract on the left just superior to the vocal cords causing severe stenosis 7. distened stomach and loops of small bowel as described) CT Results: See Notes - CONSULTS/PCP/HOSPITALIST Notification #1 *Consult/PCP/Hospitalist*: Time Discussed: 21:42 Reason/Comments: Agrees with Admission #2 Consult: Time Discussed: 22:00 Reason/Comments: Admit Consult Disposition: Admit (Mauro Accepted) Departure - Departure Date of Disposition Decision: 02/24/17 Time of Disposition Decision: 22:11 DIAGNOSIS: Lung cancer, primary, with metastasis from lung to other site, Pneumonia, Anemia Disposition: ADMITTED INPATIENT 09 Certified Medical Emergency: Emergent Condition: Poor Referrals and Follow-Ups: Domonique Duncan MD [Primary Care Provider] - - Critical Care Note This patient required my direct & personal management of CC.: No This chart was documented by the indicated scribe, (Dianne Mackey Scribe) and accurately reflects the services I performed and decisions made by me, Melissa Fowler Jr, MD, as attested by the provider's signature.
[2017-02-24] MEDS: ZOSYN 3.375 GM/NS 3.375 GM/50 ML IVPB IV SCH (22:30)
[2017-02-24] MEDS ORDERED: ZOFRAN IV PRN (23:25)
[2017-02-24] MEDS ORDERED: TYLENOL PO PRN (23:25)
[2017-02-24] MEDS ORDERED: VANCOMYCIN IV PER PHARMACY MISC SCH (23:45)
[2017-02-25] MEDS ORDERED: NS 500 ML IV ONE ×2 (00:01→03:02)
[2017-02-25] MEDS ORDERED: DUONEB (A & A) INH PRN (02:37)
[2017-02-25] MEDS: POTASSIUM CHLORIDE 20 MEQ/SWI 20 MEQ/100 ML IVPB IV SCH ×2 (02:49→04:41)
[2017-02-25] MEDS: VANCOMYCIN 1 GM/NS 1 GM/250 ML IVPB IV SCH (02:59)
[2017-02-25] MEDS ORDERED: DOPAMINE 400 MG/D5W 400 MG/500 ML IV.SOLN IV SCH (03:02)
[2017-02-25] MEDS: DUONEB (A & A) INH SCH ×6 (03:14→23:17)
[2017-02-25] MEDS: PROTONIX IV SCH (03:18)
[2017-02-25] MEDS: SOLU-MEDROL IV SCH ×3 (03:18→17:50)
[2017-02-25] MEDS: SODIUM CHLORIDE 0.9% INJ SCH (03:19)
[2017-02-25] MEDS: ZOSYN 3.375 GM/NS 3.375 GM/50 ML IVPB IV SCH ×4 (04:37→22:16)
[2017-02-25 05:04] LABS: ALLEN TEST YES; BE 3.4 mmoll (-3.0-3.0); BLOOD TYPE ARTERIAL; DRAW SITE R RADIAL; PO2(98.6) 67 mmHg (60-100); SAMPLE BLOOD; SAO2 93.7 % (95.0-100.0); THB 7.6 g/dL (11.5-17.4); pH(98.6) 7.36 (7.35-7.45)
[2017-02-25 05:05] LABS: MODALITY VENTIMASK; PCO2(98.6) 52 mmHg (35-45)
--- NOTE | 2017-02-25 05:42 | HISTORY AND PHYSICAL ---
CHIEF COMPLAINT: Shortness of breath. HISTORY OF PRESENT ILLNESS: This is a 77-year-old female with known stage IV head and neck cancer, who came in for evaluation because of progressive shortness of breath. Patient had been recently discharged about a week ago for similar in kind. She had respiratory failure at that time and was actually sent home on IV antibiotics including vancomycin and I believe cefepime. The patient has had progressive shortness of breath, confusion the last 24 hours. She came in with tachypnea. She was on non-rebreather. She has now been backed down to about 4 L and her O2 saturations are stable but she is still having increased work of breathing. She was given Rocephin and breathing treatments in the ER and admitted for persistent pneumonia in the setting of progressive stage IV lung cancer. Patient does report cough. She has not been eating and drinking very well per family. 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 There has been concern from the home health perspective that she may have had some coffee ground emesis as well. CT scan here shows pneumonia, mucus plugging and diffuse progressive lung cancer. PAST MEDICAL HISTORY: 1. Stage IV head and neck cancer. 2. Chronic obstructive pulmonary disease. 3. Skin cancer. 4. Hypertension. PAST SURGICAL HISTORY: Right Port-A-Cath. No other major. ALLERGIES: Egg derivatives. SOCIAL HISTORY: Smoking. She has about a 50 pack-year history of smoking. No alcohol. No recreational drug use. FAMILY HISTORY: Positive for colon cancer in a brother. MEDICATIONS: List is being verified. She is on Cardizem CD and oxycodone, currently not undergoing chemotherapy. REVIEW OF SYSTEMS: Reviewed x10 systems and is otherwise negative. PHYSICAL EXAMINATION: VITAL SIGNS: Blood pressure 93/54, heart rate of 92, respiratory rate of 20, temperature 97.5 degrees, 95% on 4 L. GENERAL: A well-developed female in no acute distress. HEAD: Normocephalic, atraumatic. EYES: Pupils equal, round, reactive to light. ENT: Moist mucous membranes. NECK: Supple. CARDIOVASCULAR: Exam was tachycardic. PULMONARY: She is in moderate respiratory distress. Diffuse rhonchi. Increased work of breathing. Accessory muscle use. GASTROINTESTINAL: Soft, nontender, distended. Bowel sounds were diminished. EXTREMITIES: No clubbing or cyanosis. LYMPHATIC: She had 2+ pitting edema in both her feet. MUSCULOSKELETAL: 4-5 on all 4 extremities. LABORATORY DATA: White count 15, hemoglobin and hematocrit 9 and 30, platelets 208,000. PH 7.46, pCO2 45, PO2 65. Potassium 3.3. CT scan showed no PE but was a very limited pulmonary artery contrast bolus, numerous lung masses, large mediastinal hilar confluent naresh mass encasing the right mainstem bronchi causing stenosis, extensive mucus plugging and obstruction of branches of the mainstem bronchi, interval worsening on the left, bibasilar pleural effusions, soft tissue mass involving aerodigestive tract, distended stomach. ASSESSMENT: A 77-year-old female with significant head and neck cancer who presents from home with worsening respiratory failure, pneumonia, mucus plugging and progression of her disease. PROBLEM LIST: 1. Acute respiratory failure. I will attempt to use BiPAP to help with aeration and airway . We will get a pulmonary consult. We will do broad-spectrum antibiotics. At this point, I am going to do vancomycin, Zosyn and Levaquin and follow clinically. Attempt to get a sputum sample, do DuoNebs and continue mucolytic therapy for her mucus plugging. She may require bronchoscopic assistance. However, I am not sure she may not clinically worsen in the mean time. Her prognosis is poor. 2. Multilobar pneumonia, postobstructive. We will continue Zosyn, pulmonary toilet as described. 3. Stage IV head and neck cancer with progression on airway and bronchi and esophagus. Obviously, I think fairly poor prognosis. We will continue nutritional support as tolerated and follow and supplement her potassium levels. 4. Chronic obstructive pulmonary disease exacerbation. Continue nebulizer treatments. We will add IV steroids and follow clinically. DISPOSITION: Had a long discussion with the family. Patient does not want to make any decisions and she is somewhat altered I think between the work of breathing and her overall condition. Daughter is at the bedside. Understands the poor prognosis. However, she still at this point does not want to make any decisions on DNR status although I think this needs to be resolved. Certainly I think the patient is hospice appropriate. She has failed IV antibiotics at home and has had progression. I am not sure if bronchoscopy will be useful because she probably will end up intubated if that were the case and I am not sure how well she will be able to get off intubation. We will continue discussions with the family, her primary oncologist who is Dr. Russell and Dr. Ontiveros, her windows systems administrator, and follow closely. TIME: Greater than 30 minutes critical care time for acute respiratory failure, positive pressure ventilation. cc: MD Dr. Shalom Polanco MD Alexis R. Penot, MD
--- NOTE | 2017-02-25 06:17 | Diag Imaging Result Doc PS360 ---
EXAM: CHEST-PORTABLE HISTORY: dyspnea TECHNIQUE: Portable COMPARISON: 02/15/2017 FINDINGS: There are multiple scattered nodules bilaterally. Several of these appear larger than on the prior exam. Right middle lobe mass or infiltrates are more prominent. No change in the right jugular line. No pneumothorax. There are tiny pleural effusions. IMPRESSION: Interval worsening. Electronically signed by Krunal Johnson 02/25/2017 6:14 AM
[2017-02-25] MEDS: MUCOMYST 20% INH SCH ×3 (08:16→19:51)
--- NOTE | 2017-02-25 12:30 | PROGRESS NOTE ---
DATE: 02/25/2017 PRESENT ILLNESS: The patient is being treated for pneumonia. However, on chest x-ray now the patient is mainly nodules that are increasing in size and a large mass in the right lung which also is increasing in size. At this time it seems to me most of the same we are seeing on chest x- ray is cancer but pneumonia is still present. MEDICATIONS: The patient was readmitted to the hospital. She was getting vancomycin and cefepime. Now she is getting vancomycin and Zosyn. She also is getting steroids. PHYSICAL EXAMINATION: Vital Signs: Temperature is 98.7 degrees, respirations 16, blood pressure 98/51. Generally: This is an ill-appearing, elderly female who is acutely short of breath. Lungs: There were bilateral rhonchi and rales. Cardiovascular: Heart rate is regular. Abdomen: Soft and nontender. Thorax: Patient has a Port-A-Cath in place on the right side however it does not work. The patient has an increased AP diameter to the chest. Extremities: Patient has a PICC in her arm. The site is not erythematous or swollen. Neurologic: The patient is lethargic and when she tries to talk I cannot understand what she is saying. I asked her to move her arms and legs and she did not. The patient is lethargic. She appears to be somewhat delirious. LAB AND X-RAY: [place] [address], hemoglobin 9.8, platelet count 208,000. Blood gases show a pH of 7.36, a PO2 of 67, a pCO2 of 52. Creatinine is 0.6. GFR is greater than 60. Vancomycin level is 15.5. As mentioned above chest x-ray shows bilateral enlarging nodules and an increasing right middle lobe mass in size. ASSESSMENT AND PLAN: I talked with the patient's daughter. She says that her mother wants to keep living. I told her that I do not think there is much we can do that I think most the findings in the lungs are due to cancer rather than pneumonia but we will continue antibiotics for now because she says the patient wants to keep living and wants to keep getting treated. COMORBIDITIES: Include neck cancer which is metastatic to the lungs, diabetes mellitus, COPD and history of cigarette smoking. cc: MD ALMA Monae
--- NOTE | 2017-02-25 13:00 | CONSULTATION ---
DATE OF CONSULTATION: 02/25/2017 REFERRING PHYSICIAN: Dr. Parra. CHIEF COMPLAINT: Shortness of breath. HISTORY OF PRESENT ILLNESS: This is a 77-year-old female with a past medical history of stage IV head and neck cancer, COPD with skin cancer and hypertension that presented to the hospital with progressively worsening shortness of breath. She was just discharged from the hospital on IV antibiotics with failed treatment. She has also had decreased p.o. intake as the cancer has spread to her esophagus and made this difficult. Imaging shows pneumonia, mucous plugging and diffuse progressive lung cancer. REVIEW OF SYSTEMS: Ten point review of systems was conducted. Pertinent as noted on HPI, otherwise noncontributory. PAST MEDICAL HISTORY: As mentioned in HPI, otherwise noncontributory. PAST SURGICAL HISTORY: Right Port-A-Cath placement. ALLERGIES: Egg derivatives. SOCIAL HISTORY: The patient has a 50 pack-year history of smoking. Denies use of alcohol or illicit drugs. FAMILY HISTORY: Notable for colon cancer. ALLERGIES: Active medications are Tylenol, Mucomyst, DuoNeb, dopamine, Solu- Medrol, vancomycin, morphine, Zofran, Protonix, Zosyn. PHYSICAL EXAMINATION: Vital Signs: Temperature 97.6, heart rate 87, respiratory rate 27, blood pressure 118/51, oxygen saturation 98%. General: No acute distress noted. HEENT: Normocephalic and atraumatic. Cardiovascular: Tachycardic rate. S1, S2 present. Chest: Decreased air entry with diffuse rhonchi and some respiratory distress noted. Abdomen: Soft, nontender, nondistended. Bowel sounds present. Extremities: +2 pedal edema noted. Skin : Warm, dry and intact. LABS AND INVESTIGATIONS: WBC 15.33, RBCs 3.58, hemoglobin 9.9, hematocrit 30.8 , platelet count 208,000. Sodium 133, potassium 3.3, chloride 88, carbon dioxide 31, anion gap 14. BUN 17, creatinine 0.6, glucose 91. Blood gas reveals a pH of 7.36, pCO2 of 52, PO2 of 67, HC03 of 27.5, base excess 3.4, saturated oxygen of 94. Chest x-ray performed on 02/25/2017 shows interval worsening. ASSESSMENT/PLAN: This is a 77-year-old female with a known stage IV head and neck cancer who presented to the hospital with respiratory failure, COPD, pneumonia, mucous plugging and progression of her cancer. Continue pulmonary toilet with bronchodilators, steroids, intravenous antibiotics, gastrointestinal prophylaxis and further recommendations pending diagnostic studies. Eventually prognosis is poor given the malignancy load and re- admissions. Thank for the courtesy of this consult. cc: Savannah Ontiveros MD MTDD
[2017-02-25 15:16] LABS: MAGNESIUM 1.8 mg/dL (1.5-2.7); POTASSIUM 4.5 mmol/L (3.5-5.1)
--- NOTE | 2017-02-25 17:03 | CONSULTATION ---
DATE OF CONSULTATION: 02/25/2017 CONSULTATION REQUESTED BY: Hospitalist, for a patient with metastatic head and neck cancer, patient known. HISTORY OF PRESENT ILLNESS: Ms. Martinez is a 77-year-old, female, who is known to us as we have previously treated her for head and neck cancer. The patient has metastatic head and neck cancer and has previously received chemoradiation with Erbitux. She was able to receive 6 cycles of Erbitux and then had to discontinue treatment secondary to toxicities. Patient did complete palliative radiation. The patient has been in and out of the hospital over the last several months with increased shortness of breath. CT scans have been done and revealed that she has new lung masses. Patient has declined systemic therapy up until recently. The patient was recently discharged about a week ago and the plan was for her to come to our office to see if she would be able to tolerate systemic treatment with possibly Keytruda. However, patient has been too weak and unable to get to out office. She did contact us on 02/24/2017 through her daughter who reported the patient's increased weakness. The patient when she did call us was told to present to the emergency department after that her daughter told us that she was vomiting up coffee-grounds emesis. The patient was evaluated and subsequently admitted. The patient is now in the ICU. No family is at bedside. PAST MEDICAL HISTORY: 1. Stage IV head and neck cancer, status post Erbitux x6 cycles and radiation therapy. 2. Chronic obstructive pulmonary disease. 3. Skin cancer. 4. Hypertension. PAST SURGICAL HISTORY: Status post Port-A-Cath placement on the right. FAMILY HISTORY: Her mother of Alzheimer's and her father in a car accident. She does have a brother that of colon cancer and she also has a family history of diabetes. SOCIAL HISTORY: Patient is not currently . She is currently living with her daughter. She has approximately a 60 pack year history. She is a current every day smoker. She denies any alcohol or illicit drug use. REVIEW OF SYSTEMS: A 10 point review of systems has been completed and is negative except for what is expressed in the HPI. PHYSICAL EXAMINATION: Vital Signs: Temperature 98.7 degrees, heart rate is 93, respirations 23, blood pressure 98/51, O2 saturation 97% on Venturi mask at 50%. General: Chronically ill- appearing, thin female. She is lying in the hospital bed in the ICU. She is really not able to talk and only opens her eyes a little bit to the response of your voice. HEENT: Head appears to be normocephalic atraumatic. Eyes, as far as can tell no issues with her eyes at this time. Ears, nose, throat, neck and mouth: Hard to evaluate with the mask on. No obvious blood coming out of her mouth at this time. Cardiovascular: S1, S2 heard. No murmurs, gallops, or rubs appreciated. Respiratory: Patient has coarse bilateral breath sounds. She has wheezing with some rhonchi as well. Abdomen: Soft, nontender, nondistended. Positive bowel sounds. Musculoskeletal: Patient has no obvious bony abnormalities. Extremities: Patient has trace bilateral extremity edema. Neurologic: The patient can talk but seems in and out of complete consciousness. LABS AND STUDIES: CT angio has been completed. It does not show any large central emboli identified. She continues to have numerous lung masses as well as mediastinal hilar adenopathy as previously seen during her last hospitalization and is believed to be metastatic disease. She also has extensive mucous plugging and obstruction of branches of both mainstream bronchi with interval worsening of the left as compared to the previous study. White blood cells are 15.3, hemoglobin 9.8, hematocrit 30.8, platelet count 208,000. Sodium 133, potassium 3.3, chloride 88, CO2 31, BUN 17, creatinine 0.6, glucose 91. ASSESSMENT/PLAN: 1. Metastatic head and neck cancer. Previous treatment as per in the HPI. The patient has not had any further systemic treatment since the Erbitux. Again, consideration for doing Keytruda once the patient recovered from her acute illness has been discussed. Patient has yet to have been able to get to the point where we could do treatment. It is felt that the patient is definitely hospice appropriate. In fact, we discussed this fact with the patient's daughter yesterday via telephone. It does seem from previous conversations, that the patient does not want hospice. Of course, at this point, she will need to continue in the ICU in order to treat her acute issues. It appears that the patient and family have agreed to DNR level 1. We will go ahead and place that order. No treatment will be planned at this time during the patient's acute illness. 2. Postobstructive pneumonia with respiratory failure. She will continue to receive IV antibiotics as well as O2 support and nebulizer treatments. It appears that ID has also been consulted for assistance. Pulmonary is also on the case. She will need to be monitored closely. 3. Chronic obstructive pulmonary disease exacerbation. As per above. We want to thank you for consulting us. We will continue to follow along and adjust our treatment plan per the patient's hospital course. Dictated by JAMEEL Blevins for Carolin Russell MD cc: Carolin Russell MD
[2017-02-26] MEDS: VANCOMYCIN 1 GM/NS 1 GM/250 ML IVPB IV SCH (02:15)
[2017-02-26] MEDS: PROTONIX IV SCH (02:15)
[2017-02-26] MEDS: SODIUM CHLORIDE 0.9% INJ SCH (02:15)
[2017-02-26] MEDS: SOLU-MEDROL IV SCH ×3 (02:15→18:13)
[2017-02-26] MEDS ORDERED: DUONEB (A & A) ONE (03:12)
[2017-02-26] MEDS: ZOSYN 3.375 GM/NS 3.375 GM/50 ML IVPB IV SCH ×4 (03:30→21:59)
[2017-02-26] MEDS: DUONEB (A & A) ONE ×2 (03:36→05:07)
[2017-02-26] MEDS: DUONEB (A & A) INH SCH ×6 (03:36→23:29)
[2017-02-26 04:51] LABS: ALLEN TEST YES; BE 4.4 mmoll (-3.0-3.0); BLOOD TYPE ARTERIAL; DRAW SITE R RADIAL; METHB 1.4 % (0.0-1.5); PCO2(98.6) 48 mmHg (35-45); PO2(98.6) 78 mmHg (60-100); SAMPLE BLOOD; SAO2 98.2 % (95.0-100.0); THB 7.4 g/dL (11.5-17.4)
[2017-02-26 04:52] LABS: MODALITY VENTIMASK
[2017-02-26 05:42] LABS: HEMATOCRIT 24.2 % (37.0-47.0); HEMOGLOBIN 7.8 g/dL (12.0-16.0); MCH 27.6 PG (27-31); MCHC 32.2 g/dL (33-37); MCV 85.5 FL (81-99); MPV 9.9 FL (7.4-10.4); RBC 2.83 XMIL (4.2-5.4)
[2017-02-26 06:34] LABS: AGAP 13; BUN 33 mg/dL (8-22); CALCIUM 7.9 mg/dL (8.8-10.2); CHLORIDE 99 mmol/L (98-107); COSMO 286; POTASSIUM 3.4 mmol/L (3.5-5.1); SODIUM 137 mmol/L (136-145); TCO2 25 mmol/L (25-35)
--- NOTE | 2017-02-26 07:11 | Diag Imaging Result Doc PS360 ---
EXAM: CHEST-PORTABLE HISTORY: dyspnea TECHNIQUE: AP portable at 0500 COMMENT: There are numerous pulmonary nodules bilaterally. There is increasing pleural fluid on the right compared to 02/25/2017. There is atelectasis or pneumonia in the left lower lobe. IMPRESSION: Pulmonary metastatic disease with worsening right pleural effusion. Electronically signed by Aleksandr Zamora 02/26/2017 7:09 AM
[2017-02-26] MEDS ORDERED: DOPAMINE 400 MG/D5W 400 MG/500 ML IV.SOLN IV SCH (07:46)
[2017-02-26] MEDS: MUCOMYST 20% INH SCH ×4 (07:52→21:29)
[2017-02-26] MEDS: POTASSIUM CHLORIDE 20 MEQ/SWI 20 MEQ/100 ML IVPB IV SCH ×2 (09:23→11:31)
[2017-02-26] MEDS: NICODERM PATCH TD SCH (09:24)
[2017-02-26] MEDS: XANAX PO PRN (09:24)
--- NOTE | 2017-02-26 11:19 | PROGRESS NOTE ---
DATE: 02/26/2017 SUBJECTIVE: Ms. Martinez has no new complaints at this time. She is sitting up in her hospital bed with her family members at bedside. VITAL SIGNS: Temperature 98.6 degrees, heart rate 79, respiration rate is 16, blood pressure 123/63, O2 saturations 96% on Venturi mask. LABORATORY: White blood cells are 21.8. Hemoglobin 7.8, hematocrit 24.2, platelets 193,000. Sodium 137, potassium 3.4, chloride 99, CO2 of 25. BUN 33, creatinine is 0.7, glucose 190. Chest x-ray done this morning shows pulmonary metastatic disease and worsening right pleural effusion. PHYSICAL EXAMINATION: Cardiovascular: Regular rate and rhythm. S1-S2. Respiratory: Rhonchi scattered throughout. Wheezing. Gastrointestinal: Abdomen is soft, nontender, nondistended. Extremities: Patient has trace to 1+ edema x4 extremities. ASSESSMENT AND PLAN: 1. Metastatic head and neck cancer. Hospice has been recommended. The patient is currently in the ICU. We have discussed recommendations with both the patient and her family. They understand the current situation. Patient is not well enough to receive any treatment. 2. Respiratory failure with pneumonia. Continue IV antibiotics, O2 support, and nebulizer treatments. Pulmonology is on board. Infectious Disease is on board. 3. Chronic obstructive pulmonary disease exacerbation. Management as per above. 4. Hypotension, better currently. Patient receiving dopamine. 5. Acute pain. Currently, well controlled with morphine IV p.r.n. Continue. Dictated by JAMEEL Blevins for Carolin Russell MD cc: Carolin Russell MD [facility]
[2017-02-26] MEDS: MORPHINE IV PRN (13:21)
--- NOTE | 2017-02-26 14:03 | PROGRESS NOTE ---
DATE: 02/26/2017 SUBJECTIVE: The patient is resting comfortably in bed. She is lethargic. She is currently on a Ventimask. She states that she is cold. OBJECTIVE: Vital Signs: Temperature 96.8 degrees, blood pressure 123/63, heart rate 79, respirations 16, O2 saturation 96% on a Ventimask. General: This is a chronically ill-appearing, elderly female, lying in bed in no acute distress. Head: Normocephalic, atraumatic. Heart: S1 and S2 normal. Regular rate and rhythm. Lungs: Coarse breath sounds bilaterally. Abdomen: Positive bowel sounds. Soft, nontender, nondistended. Extremities: Trace pedal edema. No cyanosis. No calf tenderness. Neurologic: The patient does awaken, but does have periods of confusion. LABORATORIES: White blood cell count 21, hemoglobin 7.8, hematocrit 24, platelets 193,000. Sodium 137, potassium 3.4, chloride 99, CO2 of 25, BUN 33, creatinine 0.7, glucose 190. ASSESSMENT AND PLAN: 1. Acute hypoxemic respiratory failure. Multifactorial. The patient is currently being treated for pneumonia. The patient also has worsening metastatic lung disease. We will continue with IV antibiotics, bronchodilator therapy, and supplemental oxygen. 2. Worsening metastatic disease. Aware. 3. Pneumonia. Continue on the antibiotic regimen as directed by Dr. Rausch. 4. Stage IV head and neck cancer. Aware. is following. 5. Anemia. We will continue to monitor the patient's hemoglobin and hematocrit. Transfuse p.r.n. 6. Anxiety disorder. Continue on Xanax p.r.n. 7. Hypotension. The patient is currently on a dopamine drip. Will attempt to wean this medication off. 8. The patient is currently a DNR level 1. cc: Valerie Frazier MD [facility]
--- NOTE | 2017-02-26 21:19 | Extremity Venous Study ---
PROCEDURE NAME: Venous U/S Bilateral Legs - 02/25/2017 REFERRING PHYSICIANS: Dr. Parra. INTERPRETING PHYSICIAN: Dr. Chau. TECH: Ivan. Patient has edema. Bilateral lower extremity images accomplished. Common femoral, superficial femoral, deep femoral, popliteal, posterior tibial, peroneal, greater saphenous are imaged. Doppler is used to evaluate the veins for spontaneity, phasicity, respiratory excursion, distal augmentation. All veins are compressible. No intraluminal clot is seen. Low-density area in the left knee joint is consistent with an effusion. INTERPRETATION: No evidence of deep or superficial venous thrombosis in either lower extremity the veins identified. There appears to be a small left knee effusion. cc: MD Artur Hernández MD
[2017-02-27] MEDS: XANAX PO PRN ×2 (00:25→23:43)
[2017-02-27] MEDS: MORPHINE IV PRN (02:37)
[2017-02-27] MEDS: SOLU-MEDROL IV SCH ×4 (02:38→17:39)
[2017-02-27] MEDS: SODIUM CHLORIDE 0.9% INJ SCH (02:40)
[2017-02-27] MEDS: VANCOMYCIN 1 GM/NS 1 GM/250 ML IVPB IV SCH (02:40)
[2017-02-27] MEDS: PROTONIX IV SCH (02:40)
[2017-02-27] MEDS: DUONEB (A & A) INH SCH ×6 (03:29→23:40)
[2017-02-27] MEDS: ZOSYN 3.375 GM/NS 3.375 GM/50 ML IVPB IV SCH ×4 (04:23→22:52)
[2017-02-27 04:57] LABS: ALLEN TEST YES; BE 7.1 mmoll (-3.0-3.0); BLOOD TYPE ARTERIAL; DRAW SITE R RADIAL; O2(CT) 11.5 mL/dL (15.0-23.0); PO2(98.6) 104 mmHg (60-100); SAMPLE BLOOD; SAO2 98.8 % (95.0-100.0); THB 8.3 g/dL (11.5-17.4)
[2017-02-27 04:58] LABS: MODALITY VENTIMASK
[2017-02-27 04:59] LABS: PCO2(98.6) 53 mmHg (35-45)
[2017-02-27 06:47] LABS: HEMATOCRIT 23.8 % (37.0-47.0); HEMOGLOBIN 7.5 g/dL (12.0-16.0); IMM GRAN# 0.04 X1000 (0.0-0.04); IMM GRAN% 0.2 % (0.0-0.5); LYMPH# 0.28 X1000 (1.2-3.4); LYMPH% 1.4 % (20.5-51.1); MANUAL DIFF NEEDED? YES; MCH 27.3 PG (27-31); MCHC 31.5 g/dL (33-37); MCV 86.5 FL (81-99); MONO# 0.37 X1000 (0.11-0.59); MONO% 1.8 % (1.7-9.3); MPV 10.1 FL (7.4-10.4); NEUT% 96.6 % (42.2-75.2); PLT 210 X1000 (130-400); RBC 2.75 XMIL (4.2-5.4)
[2017-02-27 06:58] LABS: BANDS 16 % (0-1); LYMPHS 2 % (21-51); MONO 2 % (1-9)
--- NOTE | 2017-02-27 07:06 | Diag Imaging Result Doc PS360 ---
EXAM: CHEST-PORTABLE HISTORY: dyspnea TECHNIQUE: AP portable at 0500 COMMENT: There are bilateral pleural effusions. There are numerous bilateral nodular pulmonary opacities. There is pulmonary edema. This appears to be slightly worse in the right mid and lower lung field than on the previous study but some of the change in appearance may be due to differences in inspiration. IMPRESSION: Metastatic disease, pleural effusions and pulmonary edema. Electronically signed by Aleksandr Zamora 02/27/2017 7:04 AM
[2017-02-27 07:10] LABS: AGAP 8; BUN 18 mg/dL (8-22); CALCIUM 8.1 mg/dL (8.8-10.2); CHLORIDE 103 mmol/L (98-107); COSMO 282; POTASSIUM 3.8 mmol/L (3.5-5.1); SODIUM 140 mmol/L (136-145); TCO2 29 mmol/L (25-35)
[2017-02-27] MEDS: MUCOMYST 20% INH SCH ×4 (07:38→21:08)
[2017-02-27] MEDS: NICODERM PATCH TD SCH (09:00)
--- NOTE | 2017-02-27 14:09 | PROGRESS NOTE ---
DATE: 02/27/2017 SUBJECTIVE: The patient is resting comfortably in bed. She is off of dopamine and now on nasal cannula. No acute events noted overnight. OBJECTIVE: Vital Signs: Temperature 97 degrees, blood pressure 126/58, heart rate 94, respirations 20, O2 saturation is 96% on 6 L nasal cannula. General: This is an chronically ill- appearing, elderly female, lying in bed, in no acute distress. Head: Normocephalic, atraumatic. Heart: S1, S2. Normal. Regular rate and rhythm. Lungs: Coarse breath sounds bilaterally. Abdomen: Positive bowel sounds. Soft, nontender, nondistended. Extremities: There is +1 edema. No cyanosis. No calf tenderness. Neurologic: The patient is awake with periods of confusion. LABS: White blood cell count 20, hemoglobin 7.5, hematocrit 23, platelets 210,000. Sodium 140, potassium 3.8, chloride 103, CO2 29, BUN 18, creatinine 0.4, glucose 113, calcium 8.1. ASSESSMENT AND PLAN: 1. Acute hypoxemic respiratory failure. Multifactorial. Improved. The patient is now on nasal cannula. Continue on the current therapy for pneumonia. Pulmonary is following. 2. 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 Aware. 3. Pneumonia. Continue on IV antibiotic therapy as directed by Dr. Rausch. 4. Anemia. The patient's hemoglobin and hematocrit are a little bit lower today. We will defer to the oncologist regarding transfusion. 5. Anxiety disorder. Continue on p.r.n. Xanax. 6. The patient is currently a DNR level 1. 7. Will transfer the patient to the medical floor. cc: Valerie Frazier MD
--- NOTE | 2017-02-27 18:32 | PROGRESS NOTE ---
DATE: 02/27/2017 CHIEF COMPLAINT: "I feel better." HISTORY OF PRESENT ILLNESS: Ms. Martinez had no acute events overnight and is tolerating nasal cannula and a longer needing BiPAP. PHYSICAL EXAMINATION: Vital Signs: Temperature 97.6 degrees, pulse 114, respiratory rate 20, blood pressure 144/97 with an O2 saturation of 98% on 5 L. General: This is a chronically ill- appearing, woman in no acute distress. She is unaccompanied at the time of visit. Eyes: Sclerae anicteric. Cardiovascular: Tachycardic, but regular rhythm. No murmurs, rubs, or gallops. Pulmonary: Bilateral wheezing with no increased work of breathing. No rhonchi or rales. Gastrointestinal: Abdomen is soft, nontender, nondistended with normoactive bowel sounds. Extremities: No clubbing, cyanosis, or edema. 2+ pulses x4. Neurologic: Alert and oriented x3. No focal deficits. ENT: Nasal cannula is in place. LABORATORY DATA: White count 20.5, hemoglobin 7.5, platelet count 210,000. Sodium 140, creatinine 0.4, pH 7.4, pCO2 53, PO2 104. ASSESSMENT AND PLAN: 1. Metastatic head and neck cancer: She is not a candidate for further treatment at this time. We have recommended hospice care. She is considering home hospice upon discharge. We will continue to discuss at each visit with her. 2. Respiratory failure: Her hypercarbia is slowly improving. She is no longer using BiPAP and her oxygen has been weaned. Continued oxygen support. Continue to monitor. 3. Anemia: Given her overall prognosis and incurable disease, I would recommend a very conservative strategy for transfusion. She seems to be fairly asymptomatic today. We will hold off on transfusion at this time unless her hemoglobin drops below 7 or she develops worsening symptoms. 4. Anxiety: Well-controlled at this time. Continue current medications. 5. Code status: She continues to be Do Not Resuscitate. cc: Carolin Russell MD
[2017-02-27] MEDS: CALMOSEPTINE OINTMENT TOP PRN (23:46)
[2017-02-28] MEDS: VANCOMYCIN 1 GM/NS 1 GM/250 ML IVPB IV SCH (02:48)
[2017-02-28] MEDS: SOLU-MEDROL IV SCH ×3 (02:48→18:49)
[2017-02-28] MEDS: DUONEB (A & A) INH SCH ×6 (03:42→23:29)
[2017-02-28] MEDS: PROTONIX IV SCH (04:52)
[2017-02-28] MEDS: ZOSYN 3.375 GM/NS 3.375 GM/50 ML IVPB IV SCH ×4 (04:53→21:16)
[2017-02-28 06:50] LABS: HEMATOCRIT 24.6 % (37.0-47.0); HEMOGLOBIN 7.7 g/dL (12.0-16.0); IMM GRAN# 0.04 X1000 (0.0-0.04); IMM GRAN% 0.2 % (0.0-0.5); LYMPH# 0.26 X1000 (1.2-3.4); LYMPH% 1.6 % (20.5-51.1); MANUAL DIFF NEEDED? YES; MCH 27.4 PG (27-31); MCHC 31.3 g/dL (33-37); MCV 87.5 FL (81-99); MONO# 0.45 X1000 (0.11-0.59); MONO% 2.7 % (1.7-9.3); MPV 10.2 FL (7.4-10.4); NEUT% 95.5 % (42.2-75.2); PLT 199 X1000 (130-400); RBC 2.81 XMIL (4.2-5.4)
[2017-02-28 07:05] LABS: BANDS 1 % (0-1); LYMPHS 1 % (21-51); MONO 2 % (1-9)
[2017-02-28 07:14] LABS: AGAP 10; BUN 16 mg/dL (8-22); CALCIUM 8.1 mg/dL (8.8-10.2); CHLORIDE 104 mmol/L (98-107); COSMO 294; POTASSIUM 3.6 mmol/L (3.5-5.1); SODIUM 145 mmol/L (136-145); TCO2 31 mmol/L (25-35)
[2017-02-28] MEDS: CALMOSEPTINE OINTMENT TOP PRN ×2 (07:15→11:15)
--- NOTE | 2017-02-28 08:18 | PROGRESS NOTE ---
DATE: 02/28/2017 PRESENT ILLNESS: The patient has numerous pulmonary nodules which most likely represent metastatic cancer. Also, she has what appears to be congestive heart failure. Also, I think there is a component of pneumonia in view of the fact that the patient has a leukocytosis. However, some of the leukocytosis may be due to steroids. MEDICATIONS: The patient is on a combination of vancomycin and Zosyn. As mentioned above, the patient is on steroids as well. PHYSICAL EXAMINATION: Vital Signs: Temperature is 97.6 degrees, pulse 93, respirations 20, blood pressure 151/65. General: This is a chronically ill-appearing, elderly female who appears to be somewhat dyspneic even at rest. Lungs: Clear to auscultation. Cardiovascular: Heart rate is irregular. Abdomen: Soft and nontender. Thorax: Patient has a Port-A-Cath present on the right side. However, it is not functional. Extremities: Patient has a PICC in her left arm. The site is not erythematous or swollen. LAB AND X-RAY: The CBC for today shows a white count of 16,760, hemoglobin 7.7, and platelet count 199,000. Creatinine is 0.5. GFR is greater than 60. A vancomycin level was 16.3. Blood cultures are negative. ASSESSMENT AND PLAN: I think the majority of the patient's pulmonary disease is due to metastatic cancer rather than pneumonia. For now, I will continue the patient's antibiotics because she may have a component of pneumonia. Unfortunately, I think even if she does have a component of pneumonia, that treating it will not make her much better in view of the presence of multiple pulmonary nodules which are increasing in number and size. Patient's comorbidities include neck cancer which is metastatic to the lung, diabetes mellitus, COPD, and a history of cigarette smoking. cc: Adiel Rausch MD
[2017-02-28] MEDS: XANAX PO PRN (08:37)
[2017-02-28] MEDS: MUCOMYST 20% INH SCH ×3 (08:51→21:22)
[2017-02-28] MEDS: NICODERM PATCH TD SCH (10:09)
--- NOTE | 2017-02-28 15:55 | PROGRESS NOTE ---
DATE: 02/28/2017 SUBJECTIVE: The patient is sitting up in bed. No acute events noted overnight. OBJECTIVE: Vital Signs: Temperature 98 degrees, blood pressure 130/60, heart rate 81, respirations 20, O2 saturations 96% on 5 L nasal cannula. General: This is a chronically ill- appearing, elderly female, sitting up in bed, in no acute distress. Head: Normocephalic, atraumatic. Heart: S1, S2. Normal. Lungs: Coarse breath sounds bilaterally. Abdomen: Positive bowel sounds. Soft, nontender, nondistended. Extremities: No edema. LABORATORY DATA: Reviewed. ASSESSMENT AND PLAN: 1. Acute hypoxemic respiratory failure. Multifactorial. Continue on current bronchodilators and antibiotic therapy. 2. 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 Aware. 3. Anxiety disorder. Continue on Xanax. 4. Anemia. The patient's hemoglobin and hematocrit are low. 5. The patient is currently a DNR level 1. cc: Valerie Frazier MD
[2017-03-01] MEDS: SOLU-MEDROL IV SCH ×2 (02:04→10:32)
[2017-03-01] MEDS: VANCOMYCIN 1 GM/NS 1 GM/250 ML IVPB IV SCH (03:02)
[2017-03-01] MEDS: DUONEB (A & A) INH SCH ×6 (03:31→23:36)
[2017-03-01] MEDS: ZOSYN 3.375 GM/NS 3.375 GM/50 ML IVPB IV SCH ×4 (04:57→21:20)
[2017-03-01] MEDS ORDERED: PROTONIX PO ONE (05:00)
[2017-03-01 06:20] LABS: HEMATOCRIT 26.2 % (37.0-47.0); HEMOGLOBIN 7.9 g/dL (12.0-16.0); IMM GRAN# 0.04 X1000 (0.0-0.04); IMM GRAN% 0.3 % (0.0-0.5); LYMPH# 0.21 X1000 (1.2-3.4); LYMPH% 1.5 % (20.5-51.1); MANUAL DIFF NEEDED? YES; MCHC 30.2 g/dL (33-37); MCV 89.4 FL (81-99); MONO# 0.34 X1000 (0.11-0.59); MONO% 2.4 % (1.7-9.3); NEUT% 95.8 % (42.2-75.2); PLT 197 X1000 (130-400); RBC 2.93 XMIL (4.2-5.4)
[2017-03-01 06:45] LABS: AGAP 8; BUN 14 mg/dL (8-22); CALCIUM 8.2 mg/dL (8.8-10.2); CHLORIDE 103 mmol/L (98-107); COSMO 295; POTASSIUM 3.7 mmol/L (3.5-5.1); SODIUM 146 mmol/L (136-145); TCO2 35 mmol/L (25-35)
[2017-03-01 07:23] LABS: BANDS 6 % (0-1); LYMPHS 2 % (21-51); MONO 4 % (1-9)
[2017-03-01] MEDS: MUCOMYST 20% INH SCH ×4 (07:27→19:43)
[2017-03-01] MEDS: PROTONIX IV SCH (07:54)
--- NOTE | 2017-03-01 08:46 | PROGRESS NOTE ---
DATE: 03/01/2017 PRESENT ILLNESS: The patient is being treated by me for pneumonia. Unfortunately, she has numerous pulmonary nodules which most likely represent metastatic cancer. MEDICATIONS: This is the 5th day of treatment with the combination of vancomycin and Zosyn. Patient also is receiving steroids. PHYSICAL EXAMINATION: Vital Signs: Temperature is 97.9 degrees, pulse 80, respirations 18, blood pressure 151/83. Generally, this is a chronically ill-appearing, elderly female. She is lethargic. She is in no acute distress. Lungs: There were bilateral rhonchi. Cardiovascular: Heart tones were at times regular and then at other times I thought that they were irregular. Abdomen was soft and nontender. Thorax: Patient has a Port-A-Cath present on the right side but is not functional. Extremities: The patient has a left arm PICC in place. The site is not erythematous or swollen. LABORATORY DATA AND X-RAY: The patient's CBC today shows a white count of 14,050. Hemoglobin 7.9 and platelet count 197,000. Creatinine 0.4. GFR is greater than 60. Blood cultures are sterile thus far. ASSESSMENT AND PLAN: I think the major part of the patient's pulmonary illness is due to metastatic cancer rather than pneumonia. For now, I plan to continue with the antibiotics to treat any remaining pneumonia. The patient's comorbidities consists of metastatic cancer in the lung, diabetes mellitus, COPD, and cigarette smoking history. cc: Adiel Rausch MD
[2017-03-01] MEDS: NICODERM PATCH TD SCH (10:32)
--- NOTE | 2017-03-01 12:17 | PROGRESS NOTE ---
DATE: 03/01/2017 SUBJECTIVE: The patient is resting comfortably in bed. No acute events noted overnight. OBJECTIVE: Vital Signs: Temperature 97 degrees, blood pressure 140/58, heart rate 83, respirations 20, and O2 saturations 97% on 4 liters nasal cannula. General: This is an elderly female, sitting up in bed, in no acute distress. Head: Normocephalic, atraumatic. Heart: S1 and S2, normal. Regular rate and rhythm. Lungs: Coarse breath sounds bilaterally. Abdomen: Positive bowel sounds. Soft, nontender, nondistended. Extremities: No edema, no cyanosis. LABORATORY DATA: Labs reviewed. ASSESSMENT AND PLAN: 1. Acute hypoxemic respiratory failure, stable. 2. Pneumonia. Continue on the current antibiotic regimen. 3. Stage IV head and neck cancer with pulmonary metastasis, aware. 4. Anxiety disorder. Continue on Xanax. 5. Anemia. We will monitor the patient's hemoglobin and hematocrit closely. 6. The patient is a Do Not Resuscitate level 1. Will consult social media content specialist to set up home hospice. cc: Valerie Frazier MD [facility]
[2017-03-01] MEDS: PROTONIX PO SCH (15:34)
[2017-03-01] MEDS: XANAX PO PRN (20:15)
[2017-03-02] MEDS: DUONEB (A & A) INH SCH ×3 (03:40→11:21)
[2017-03-02] MEDS: ZOSYN 3.375 GM/NS 3.375 GM/50 ML IVPB IV SCH (04:06)
[2017-03-02] MEDS: PROTONIX PO SCH ×2 (05:42→07:28)
[2017-03-02 06:22] LABS: BASO% 0.1 % (0.0-0.8); EOS# 0.04 X1000 (0.0-0.7); EOS% 0.3 % (0.0-10.0); HEMATOCRIT 27.2 % (37.0-47.0); HEMOGLOBIN 8.2 g/dL (12.0-16.0); IMM GRAN# 0.05 X1000 (0.0-0.04); IMM GRAN% 0.3 % (0.0-0.5); LYMPH# 0.45 X1000 (1.2-3.4); LYMPH% 3.1 % (20.5-51.1); MANUAL DIFF NEEDED? YES; MCH 27.1 PG (27-31); MCHC 30.1 g/dL (33-37); MCV 89.8 FL (81-99); MONO# 0.88 X1000 (0.11-0.59); MONO% 6.1 % (1.7-9.3); NEUT% 90.1 % (42.2-75.2); PLT 196 X1000 (130-400); RBC 3.03 XMIL (4.2-5.4)
[2017-03-02 06:31] LABS: AGAP 7; BUN 12 mg/dL (8-22); CALCIUM 8.3 mg/dL (8.8-10.2); CHLORIDE 101 mmol/L (98-107); COSMO 291; POTASSIUM 3.3 mmol/L (3.5-5.1); SODIUM 146 mmol/L (136-145); TCO2 38 mmol/L (25-35)
[2017-03-02] MEDS: MUCOMYST 20% INH SCH ×2 (07:05→11:21)
[2017-03-02 07:21] LABS: LYMPHS 1 % (21-51); MONO 2 % (1-9)
[2017-03-02 07:42] VITALS: BP 162/89
[2017-03-02] MEDS: XANAX PO PRN (07:48)
[2017-03-02] MEDS: NICODERM PATCH TD SCH ×2 (07:49→09:47)
[2017-03-02] MEDS: PREDNISONE PO SCH ×2 (07:49→09:47)
[2017-03-02] MEDS: KLOR-CON PO ONE ×2 (07:53→09:47)
--- NOTE | 2017-03-02 08:40 | PROGRESS NOTE ---
DATE: 03/02/2017 PRESENT ILLNESS: Patient is being treated for pneumonia. Unfortunately, I think most of her pulmonary infiltrates are due to metastatic cancer. I think if there was pneumonia, it should have been cleared by the antibiotic she has already received. The patient told me today that she wants to go home on hospice care. She does not want any further antibiotics and she wants to get her PICC out. MEDICATIONS: As mentioned above, the patient is on Zosyn as a single agent. This is the 6th day of treatment. PHYSICAL EXAMINATION: Vital Signs: Temperature is 97.4 degrees, pulse 112, respirations 22, blood pressure 162/89. General: This is a chronically ill-appearing, elderly female. She is in no acute distress. Lungs: Scattered rhonchi bilaterally. Cardiovascular: Heart rate is regular. Abdomen: Soft and nontender. Extremities: Patient has a PICC and the PICC site is not erythematous or tender. LAB AND X-RAY: There is no new x-ray today. The patient's CBC shows a white count of 14,510, hemoglobin 8.2, and platelet count 196,000. Creatinine is 0.5. GFR is greater than 60. ASSESSMENT AND PLAN: I think that it if there was any pneumonia, it should that have cleared now with antibiotic therapy. I think the remaining infiltrates in the patient's lung are due to malignancy. Even if there was some infection, the patient's malignancy is rapidly spreading. The patient also, as mentioned above, wants to stop her antibiotics and have her PICC removed. For all these reasons, I am going to stop the Zosyn. When the patient goes home, she wants to be under hospice care and the PICC will need to be removed. COMORBIDITIES: Include metastatic cancer in the lung, diabetes mellitus, COPD, and cigarette smoking history. I am signing off for now. I am available to see the patient on a p.r.n. basis. cc: Adiel Rausch MD
--- NOTE | 2017-03-02 16:57 | DISCHARGE SUMMARY ---
ADMISSION DATE: 02/25/2017 DISCHARGE DATE: 03/02/2017 FINAL DISCHARGE DIAGNOSES: 1. Acute on chronic hypercapnic respiratory failure. 2. Pneumonia 3. Stage IV head and neck cancer. 4. Pulmonary metastasis. 5. Chronic obstructive pulmonary disease. 6. Anxiety disorder. CONSULTATIONS REQUESTED DURING THIS HOSPITAL STAY: 1. Pulmonary consultation with Dr. Ontiveros. 2. Infectious Disease consultation with Dr. Rausch. 3. Oncology consultation with Dr. Russell. HOSPITAL COURSE: Ms. Martinez is a 77-year-old female with a history of metastatic head and neck cancer with pulmonary metastasis who presented to the ER in respiratory failure. The patient was admitted to the hospitalist service. A pulmonary arteriogram was done in the ER that revealed multiple lung masses suggestive of metastasis as well as a large mediastinal and hilar mass encasing the mainstem bronchi causing stenosis as well as pneumonia. The patient was admitted to the ICU and placed on a Venti mask. Broad-spectrum antibiotics plus bronchodilator therapy and IV steroids were initiated. Pulmonary Medicine, oncology and ID were consulted. Slowly over the course of the hospitalization, the patient was weaned back to nasal cannula and was able to be moved out of the ICU. Dr. Russell had ab extensive discussion with the family and the patient who opted to be made a DNR level 1 and to be placed on hospice care. The patient stabilized and arrangements were made to discharge the patient home with hospice. The patient was discharged home on 03/02/2017. DISCHARGE MEDICATIONS: 1. Xanax 0.5 mg p.o. every 8 hours p.r.n. for anxiety. 2. Augmentin 500 mg/125 mg 1 tab oral twice a day. 3. Prednisone 40 p.o. daily. 4. Percocet 10/325, 1 tab oral every 4 hours p.r.n. for pain. 5. Gabapentin 300 mg p.o. daily. 6. DuoNeb 3 mL inhaled every 4 hours. 7. NicoDerm patch 21 mg transdermal daily. 8. Protonix 40 mg p.o. daily. DISPOSITION: The patient has been discharged home with hospice services. cc: Valerie Frazier MD
== END 2017-03-02 02:40 | disposition hospice, home (50) ==
LOC: SUPCPDRO → ED 18:40 → EDIPHOLD 02-25 00:12 → SUATTDRO 02-25 00:12 → ICU 02-25 02:07 → 4N 02-27 16:11
PROVIDERS: ATTEND Internal Medicine